=== PATIENT | female | born 1945 | race Caucasian/White ===

== ENCOUNTER → 2020-12-03 09:55 | Outpatient (BNVA) | payer MEDICARE, SELFPAY | PROVIDERS: PCP Internal Medicine; Referring Provider Internal Medicine; Visit Provider Obstetrics & Gynecology ==

== ENCOUNTER 2021-03-04 07:55 | Outpatient (REF) | payer MEDICARE, SELFPAY ==
[2021-03-04 08:40] LABS: MANUAL DIFF FLAG NO
[2021-03-04 08:47] LABS: Basophils Percent Auto 0.8 % (0-2); Eosinophils Absolute Auto 0.2 X10*3/uL (0.0-0.4); Eosinophils Percent Auto 2.9 % (0-4); Hemoglobin 12.8 g/dl (12.0-16.0); Lymphocytes Absolute Auto 1.4 X10*3/uL (1.2-4.9); Lymphocytes Percent Auto 27.5 % (20-40); Mean Corpuscular HGB Conc 32.8 g/dl (31.0-35.0); Mean Corpuscular Hemoglobin 31.2 pg (27.0-33.0); Mean Corpuscular Volume 95.1 fL (80-98); Monocytes Absolute Auto 0.5 X10*3/uL (0.1-1.2); Monocytes Percent Auto 8.8 % (2-11); Neutrophils Absolute Auto 3.1 X10*3/uL (2.0-8.3); Platelet Count 276 X10*3/uL (160-400); Red Cell Distribution Width 13.5 % (11.0-16.0); White Blood Count 5.1 X10*3/uL (4.8-10.8)
[2021-03-04 09:31] LABS: Thyroid Stimulating Hormone 1.12 uIU/mL (0.32-4.0); Vitamin D 25-OH Total 64.2 ng/mL (>30)
[2021-03-04 09:36] LABS: Alanine Aminotransferase 22 U/L (0-31); Albumin Level 4.3 g/dL (3.5-5.0); Alkaline Phosphatase 54 U/L (39-117); Anion Gap 12 (12-20); Aspartate Amino Transferase 23 U/L (5-31); Bilirubin Total 0.5 mg/dL (0.0-1.0); Blood Urea Nitrogen 15 mg/dL (9-16); Calcium 9.6 mg/dL (8.4-10.2); Carbon Dioxide 29 mmol/L (22-29); Chloride 105 mmol/L (96-108); Cholesterol 177 mg/dL; Estimated Glomerular Filt Rate > 60; Glucose Random 107 mg/dL (60-115); HDL Cholesterol 57 mg/dL; LDL Cholesterol Calculated 104 mg/dl; Potassium 4.8 mmol/L (3.3-5.1); Sodium 141 mmol/L (135-145); Total Protein 6.9 g/dL (6.5-8.0); Triglycerides 81 mg/dL
[2021-03-04 09:41] LABS: Folate 18.9 ng/mL (> or = 4.0); Vitamin B12 867 pg/mL (200-900)
== END 2021-03-04 07:56 | disposition home or self-care (01) ==
LOC: HO.LAB 07:55
PROVIDERS: PCP Internal Medicine; Visit Provider Internal Medicine
DX: E78.00 Pure hypercholesterolemia, unspecified (principal); I10 Essential (primary) hypertension
CPT/HCPCS: 36415; 80053; 80061; 82306; 82607; 82746; 84439; 84443; 85025

== ENCOUNTER 2021-03-17 10:13 | Outpatient (REF) | payer MEDICARE, SELFPAY ==
--- NOTE | ~2021-03-17 | MM_ITS ---
EXAMINATION: BONE DENSITOMETRY CLINICAL INDICATION: Menopausal and female climacteric states. COMPARISON: Previous BD dated 03/15/2019 and baseline BD dated 12/26/2003. TECHNIQUE: Using a [employer] DXA System (software version: 13.1) manufactured by [employer], dual-energy x-ray absorptiometry was performed of the lumbar spine and left hip. The images are of good technical quality. Summary results are attached. FINDINGS: AP SPINE L1-L4 (excluding L3): The data of L1-L4 has been changed to exclude the L3 vertebral body, because degenerative changes at this level may cause overestimation of lumbar spine density. Current: BMD 1.163 g/cm2, Z-score 1.3, T-score -0.1, normal, 10.4% increase from previous, 11.5% increase from baseline (<5% change is not significant). Prior: BMD 1.053 g/cm2. Baseline: BMD 1.043 g/cm2. LEFT FEMUR, NECK: Current: BMD 0.944 g/cm2, Z-score 0.9, T-score -0.7, normal. Prior: BMD 0.981 g/cm2. Baseline: BMD 0.953 g/cm2. LEFT FEMUR, TOTAL: Current: BMD 0.899 g/cm2, Z-score 0.5, T-score -0.9, normal, 0.7% increase from previous, 3.4% decrease from baseline (<5% change is not significant). Prior: BMD 0.893 g/cm2. Baseline: BMD 0.931 g/cm2. IDENTIFIED RISK FACTORS: Menopause. HISTORY OF FRACTURE: None listed. MEDICATIONS: Calcium supplements or multivitamin, vitamin D. MM/XR DEXA axial skeleton IMPRESSION: 1. DIAGNOSIS: Normal bone density based on the lowest T-score value of -0.9 in the total femur applying World Health Organization criteria. 2. 10-YEAR FRACTURE RISK PREDICTION, FRAX: Major osteoporotic fracture (clinical spine, forearm, hip or shoulder) 8.9%. Hip fracture 1.0%. 3. Treatment Recommendations: NOF guidelines recommend consideration for treatment in postmenopausal women and men age 50 and older presenting with the following: -A hip or vertebral (clinical or morphometric) fracture. -T-score less than or equal to -2.5 at the femoral neck or spine after appropriate evaluation to exclude secondary causes. -Low bone mass at the hip or spine and a 10-year fracture probability by FRAX of greater than or equal to 3% for hip fracture or greater than or equal to 20% for major osteoporotic fracture based on the [place] adapted WHO algorithm. 4. Other Recommendations: All treatment decisions require clinical judgment and consideration of individual patient factors, including patient preferences, comorbidities, previous drug use, risk factors not captured in the FRAX model (e.g. frailty, falls, vitamin D deficiency, increased bone turnover, interval significant decline in bone density) and possible under or overestimation of fracture risk by FRAX. FUTURE SCAN RECOMMENDATION: People with diagnosed cases of osteoporosis or at high risk for fracture should have regular bone mineral density tests. For patients eligible for Medicare, routine testing is allowed once every 2 years. The testing frequency can be increased to one year for patients who have rapidly progressing disease, those who are receiving or discontinuing medical therapy to restore bone mass, or have additional risk factors.
== END 2021-03-17 10:14 | disposition home or self-care (01) ==
LOC: HO.MAMMO 10:13
PROVIDERS: PCP Internal Medicine; Visit Provider Obstetrics & Gynecology
DX: Z13.820 Encounter for screening for osteoporosis (principal); Z78.0 Asymptomatic menopausal state; Z79.899 Other long term (current) drug therapy
CPT/HCPCS: 77080

== ENCOUNTER → 2021-03-31 11:20 | Outpatient (BNVA) | payer MEDICARE, SELFPAY | PROVIDERS: PCP Internal Medicine; Visit Provider Obstetrics & Gynecology | DX: M85.80 Other specified disorders of bone density and structure, unspecified site (principal) | CPT/HCPCS: Q3014 ==

== ENCOUNTER 2021-08-19 06:35 | Day surgery (SDC) | payer MEDICARE, SELFPAY ==
[2021-08-13 13:10] VITALS: BMI 25.8
[2021-08-19 06:37] VITALS: BP 170/77; PULSE 82; RESP 17; TEMP 36.3; O2SAT 99
--- NOTE | 2021-08-19 07:19 | HO.ANESPROP2 ---
HPI - Anesthesia Eval Consult details Narrative: 76 yo female patient for colonoscopy PMFSH Active Problems Active Problems: All Active Problems (Updated 08/13/21 @ 13:09 by Kaylin Bernstein RN) Breast asymmetry (Acute) Menopausal state (Acute) Annual physical exam (Acute) Osteopenia (Acute) Impaired glucose tolerance (Acute) Tubular adenoma of colon (Acute) Osteopenia (Acute) Breast cancer screening by mammogram (Acute) Hypercholesterolemia (Acute) Hypertension (Acute) Past Medical History Medical History Allergic rhinitis Arthritis COVID-19 vaccine series completed Hypercholesterolemia Hypertension Tubular adenoma of colon Family History Family History Mother Cancer Uterine cancer Family history of problems with anesthesia: No Surgical History Surgical History H/O colonoscopy History of bilateral tubal ligation History of cataract surgery History of Problems with Anesthesia: No Social History Social History Housing: House Are you a primary hearing care professional to a significant other at home: No Do you presently have visiting nurse or other home services: No Alcohol intake: current Alcohol intake frequency: a few times a month Patient Tobacco Use Status: Never used Tobacco e-Cigarette/Vaping Use: Never Used Use of substances other than those prescribed or required for medical reasons: No Have you been hit, kicked, punched, or otherwise hurt by someone within the past year? If so, by whom?: No Are you DNR?: No Advance Directives Information Provided: Yes (will bring copy DOS) Advance Directives on File: No Recently lost weight without trying: No Eating poorly because of decreased appetite: No Nutrition Risks: No Nutritional Risk Poor oral hygiene: No Current occupational status: retired Meds Allergies Allergy/AdvReac Type Severity Reaction Status Date / Time amlodipine [Norvasc] Allergy Intermediate hives (to Verified 08/13/21 12:55 the binder) Sulfa (Sulfonamide Allergy Intermediate swelling Verified 08/13/21 13:10 Antibiotics) of mouth Active Medications: Current Medications Sodium Biphosphate/Sodium Phosphate (Sodium Phosphate,Sharp-Dibasic 133 Ml Enema) 133 ml VT ONCE PRN PRN Reason: Poor Colonoscopy Prep Results Home Medications Medication Instructions Recorded Confirmed Last Taken Type aspirin 81 mg tablet,delayed 81 mg PO DAILY 09/06/20 08/13/21 08/11/21 History release multivitamin 1 tab PO DAILY 12/03/20 08/13/21 Unknown History calcium carbonate 600 mg-vitamin 1 cap PO BID cap 03/12/21 08/13/21 Unknown History D3 12.5 mcg (500 unit) capsule (Calcium 600 with Vitamin D3) cetirizine 10 mg tablet (Zyrtec) 10 mg PO DAILY PRN 03/12/21 08/13/21 Unknown History Exam Exam Date and Time: August 19, 2021 0719 Height,Weight and Vital Signs: Height 5 ft 8 in Weight 77.111 kg Last Vital Signs Temp 97.3 F 08/19/21 06:37 Pulse 82 08/19/21 06:37 Resp 17 08/19/21 06:37 BP 170/77 H 08/19/21 06:37 Pulse Ox 99 08/19/21 06:37 Airway Mallampati Class: II (Small mouth) TM Dist: >3cm Neck ROM: Full Loose/Missing/Broken Teeth: No Heart: RRR Lungs: CTAB Assessment and Plan Final Anesthetic Review Family History of Problems with Anesthesia: No History of Problems with Anesthesia: No NPO: Yes ASA Class: II Final Preanesthetic Review: No Changes in Pt Med Stat, Meds/Allgs Chart Reviewed, Consent Obtained/Reviewed and Anes Risks/Benef Reviewed Patient Risk: Low Procedure Risk: Low Assessment/Block/Sedation in SS: Assess/Block/Sedation-SS Anesthetic Plan Anesthetic Plan: MAC: Disposition: Standard PACU
[2021-08-19] MEDS: Lactated Ringers 1,000 ML 100 ML IVCONT (07:28)
[2021-08-19 08:32] VITALS: BP 108/59; PULSE 63; RESP 12; TEMP 36.1; O2SAT 98
--- NOTE | 2021-08-19 08:34 | PM.OP ---
Brief Operative Note Date of Service: 08/19/21 Pre-op diagnosis: Screening Post-op diagnosis: other (Polyp, suboptimal prep) Procedure: Colonoscopy to the cecum with hot snare polypectomy Surgeon: David Wellington Anesthesia: MAC Was an Director Of Undergraduate Admissions used for this Procedure?: No Estimated blood loss (mL): 0 Pathology: other (A. Cecal polyp) Condition: stable Disposition: PACU
[2021-08-19 08:47] VITALS: BP 107/62; PULSE 69; RESP 18; TEMP 36.1; O2SAT 98
--- NOTE | 2021-08-24 16:05 | OP_ITS ---
SURGEON: David Wellington MD INDICATIONS: The patient presents for evaluation of colorectal cancer screening and personal history of tubular adenoma of the colon. Full consent was obtained from her for this, including risks of bleeding and perforation. PREOPERATIVE DIAGNOSIS: POSTOPERATIVE DIAGNOSIS: PROCEDURE PERFORMED: ESTIMATED BLOOD LOSS: COMPLICATIONS: ANESTHESIA: Monitored anesthesia care. ASSISTANTS: SPECIMENS: PROCEDURE: Colonoscopy to the cecum with hot snare polypectomy. PREOPERATIVE DIAGNOSES: Colorectal cancer screening and personal history of tubular adenoma of the colon. POSTOPERATIVE DIAGNOSES: Colorectal cancer screening and personal history of tubular adenoma of the colon, cecal polyp, suboptimal prep, diverticulosis, and internal hemorrhoids. DESCRIPTION OF PROCEDURE: The patient was placed in the left lateral decubitus position. The digital rectal exam revealed no abnormalities. The Olympus video pediatric colonoscope was entered into the rectum and advanced easily to the cecum. In the cecum, I did identify cecal pouch with appendiceal orifice, although the prep in the cecum was somewhat limited. With copious irrigation and suction. I was able to visualize the majority of the cecum. In the cecum, there was a slightly raised approximately 10 mm polyp, which was removed with a hot snare polypectomy and recovered by suction. The polypectomy site appeared clean, without any sign of residual polyp nor bleeding. There was transillumination of light deep in the right lower quadrant. The scope was then slowly withdrawn assessing all mucosal surfaces carefully. Preparation of various parts of the colon was quite limited due to some liquid and solid stool. I did not visualize any sign of polyps, colitis, or angiodysplasia. There was a mild amount of sigmoid diverticulosis. In the rectum, scope was retroflexed visualizing internal hemorrhoids, but no other pathology. The rectal mucosa appeared normal. The scope was straightened and withdrawn from the patient. She tolerated the procedure well and was returned to the recovery area in stable condition. IMPRESSION: 1. Cecal polyp, status post hot snare polypectomy. 2. Diverticulosis. 3. Internal hemorrhoids. 4. Limited prep. PLAN: The results of the pathology will be checked. Even if the polyp is not a tubular adenoma, I would recommend a repeat colonoscopy with a 2-day preparation for better clean out within the next year or so given her previous history of relatively large adenomas. She was advised not to use any aspirin or NSAIDs for 1 more week. MD OBEY Mcdonough/CHEN / [id number]
== END 2021-08-19 09:11 | disposition home or self-care (01) ==
PROVIDERS: PCP Internal Medicine; Visit Provider Internal Medicine
PROC: 0DJD8ZZ Inspection of Lower Intestinal Tract, Via Natural or Artificial Opening Endoscopic (ICD-10-PCS; CPT 45378; principal; 2021-08-19 07:30)
DX: Z12.11 Encounter for screening for malignant neoplasm of colon (principal); Z86.010 Personal history of colon polyps; D12.0 Benign neoplasm of cecum; K57.30 Diverticulosis of large intestine without perforation or abscess without bleeding; K64.8 Other hemorrhoids; I10 Essential (primary) hypertension; E78.5 Hyperlipidemia, unspecified; Z79.82 Long term (current) use of aspirin; Z79.899 Other long term (current) drug therapy
CPT/HCPCS: 45385; 88305

== ENCOUNTER 2021-11-18 06:55 | Day surgery (SDC) | payer MEDICARE, SELFPAY ==
[2021-11-12 16:07] VITALS: BMI 25.8
--- NOTE | 2021-11-17 11:56 | HO.ANESPROP2 ---
Documented by User: Iliana Abbott NP 11/17/21 11:57 HPI - Anesthesia Eval Consult details Narrative: 76yo F for Colonoscopy s/p Colonoscopy 08/2021 with TIVA PMFSH Active Problems Active Problems: All Active Problems (Updated 11/12/21 @ 16:04 by Ayanna Almanzar, RN) Breast asymmetry (Acute) Menopausal state (Acute) Annual physical exam (Acute) Osteopenia (Acute) Impaired glucose tolerance (Acute) Tubular adenoma of colon (Acute) Osteopenia (Acute) Breast cancer screening by mammogram (Acute) Nondisplaced fracture of greater tuberosity of humerus (Acute) Hypercholesterolemia (Acute) Hypertension (Acute) Past Medical History Medical History Allergic rhinitis Arthritis COVID-19 vaccine series completed Hypercholesterolemia Hypertension Left carotid artery stenosis Tubular adenoma of colon Family History Family History Mother Cancer Uterine cancer Family history of problems with anesthesia: No Surgical History Surgical History (Updated 11/12/21 @ 16:24 by Ramila Falcon RN) H/O colonoscopy History of bilateral tubal ligation History of cataract surgery History of Problems with Anesthesia: No Social History Social History Housing: House Are you a primary home care specialist to a significant other at home: No Do you presently have visiting nurse or other home services: No Alcohol intake: current Alcohol intake frequency: holidays/special occasions only Patient Tobacco Use Status: Never used Tobacco e-Cigarette/Vaping Use: Never Used Use of substances other than those prescribed or required for medical reasons: No Are you DNR?: No Advance Directives: No Advance Directives Information Provided: Yes Advance Directives on File: No Recently lost weight without trying: No Nutrition Risks: No Nutritional Risk service: No Current occupational status: retired Cognitive needs: No Hearing needs: No Vision needs: Yes Meds Allergies Allergy/AdvReac Type Severity Reaction Status Date / Time amlodipine [Norvasc] Allergy Intermediate hives (to Verified 11/12/21 16:24 the binder) Sulfa (Sulfonamide Allergy Intermediate swelling Verified 11/12/21 16:24 Antibiotics) of mouth Home Medications Medication Instructions Recorded Confirmed Last Taken Type aspirin 81 mg tablet,delayed 81 mg PO DAILY 09/06/20 11/12/21 08/24/21 History release multivitamin 1 tab PO DAILY 12/03/20 11/12/21 Unknown History calcium carbonate 600 mg-vitamin 1 cap PO BID 03/12/21 11/12/21 Unknown History D3 12.5 mcg (500 unit) capsule (Calcium 600 with Vitamin D3) cetirizine 10 mg tablet (Zyrtec) 10 mg PO DAILY PRN Allergy Symptoms 03/12/21 11/12/21 Unknown History glucosamine sulf dipot 1 cap PO DAILY 11/12/21 11/12/21 Unknown History chlr,msm,chond 550 mg-C 30 mg-malik 1 mg capsule (Glucosamine Chondroitin) Exam Exam Date and Time: November 17, 2021 1156 Height,Weight and Vital Signs: Height 5 ft 8 in Weight 77.111 kg Assessment and Plan Assessment Anesthesia Assessment: Chart Reviewed Final Anesthetic Review Family History of Problems with Anesthesia: No History of Problems with Anesthesia: No Documented by User: Kristin Renteria MD 11/18/21 08:00 [facility] Past Medical History Medical History Allergic rhinitis Arthritis COVID-19 vaccine series completed Hypercholesterolemia Hypertension Left carotid artery stenosis Tubular adenoma of colon Family History Family History Mother Cancer Uterine cancer Surgical History Surgical History (Updated 11/12/21 @ 16:24 by Ramila Falcon RN) H/O colonoscopy History of bilateral tubal ligation History of cataract surgery Social History Social History Housing: House Are you a primary home care specialist to a significant other at home: No Do you presently have visiting nurse or other home services: No Alcohol intake: current Alcohol intake frequency: holidays/special occasions only Patient Tobacco Use Status: Never used Tobacco e-Cigarette/Vaping Use: Never Used Use of substances other than those prescribed or required for medical reasons: No Are you DNR?: No Advance Directives: No Advance Directives Information Provided: Yes Advance Directives on File: No Recently lost weight without trying: No Nutrition Risks: No Nutritional Risk service: No Current occupational status: retired Cognitive needs: No Hearing needs: No Vision needs: Yes Meds Allergies Allergy/AdvReac Type Severity Reaction Status Date / Time amlodipine [Norvasc] Allergy Intermediate hives (to Verified 11/12/21 16:24 the binder) Sulfa (Sulfonamide Allergy Intermediate swelling Verified 11/12/21 16:24 Antibiotics) of mouth Home Medications Medication Instructions Recorded Confirmed Last Taken Type aspirin 81 mg tablet,delayed 81 mg PO DAILY 09/06/20 11/12/21 08/24/21 History release multivitamin 1 tab PO DAILY 12/03/20 11/12/21 Unknown History calcium carbonate 600 mg-vitamin 1 cap PO BID 03/12/21 11/12/21 Unknown History D3 12.5 mcg (500 unit) capsule (Calcium 600 with Vitamin D3) cetirizine 10 mg tablet (Zyrtec) 10 mg PO DAILY PRN Allergy Symptoms 03/12/21 11/12/21 Unknown History glucosamine sulf dipot 1 cap PO DAILY 11/12/21 11/12/21 Unknown History chlr,msm,chond 550 mg-C 30 mg-malik 1 mg capsule (Glucosamine Chondroitin) Exam Airway Mallampati Class: II TM Dist: >3cm Neck ROM: Full Assessment and Plan Final Anesthetic Review NPO: Yes ASA Class: II Final Preanesthetic Review: No Changes in Pt Med Stat, Meds/Allgs Chart Reviewed, Consent Obtained/Reviewed and Anes Risks/Benef Reviewed Patient Risk: Low Procedure Risk: Low Anesthetic Plan Anesthetic Plan: MAC: Disposition: Standard PACU
[2021-11-18 07:20] VITALS: BP 174/62; PULSE 99; RESP 17; TEMP 36.1; O2SAT 97
[2021-11-18] MEDS: Lactated Ringers 1,000 ML 100 ML IVCONT (07:38)
[2021-11-18 09:35] VITALS: BP 108/38; PULSE 78; RESP 16; TEMP 36.1; O2SAT 98
--- NOTE | 2021-11-18 09:36 | PM.OP ---
Brief Operative Note Date of Service: 11/18/21 Pre-op diagnosis: Screening Post-op diagnosis: other (Diverticulosis) Procedure: Colonoscopy to the cecum Surgeon: David Wellington Anesthesia: MAC Was an Chisel Mortiser Operator used for this Procedure?: No Estimated blood loss (mL): 0 Pathology: none sent Condition: stable Disposition: PACU
[2021-11-18 09:50] VITALS: BP 134/75; PULSE 73; RESP 18; TEMP 36.1; O2SAT 100
--- NOTE | 2021-11-19 10:49 | OP_ITS ---
SURGEON: David Wellington MD INDICATIONS: The patient presents for evaluation of colorectal cancer screening and personal history of tubular adenoma of the colon. Full consent has been obtained from her for this, including risks of bleeding and perforation. PREOPERATIVE DIAGNOSIS: POSTOPERATIVE DIAGNOSIS: PROCEDURE PERFORMED: Colonoscopy to the cecum. ESTIMATED BLOOD LOSS: COMPLICATIONS: ANESTHESIA: Monitored anesthesia care. ASSISTANTS: SPECIMENS: PREOPERATIVE DIAGNOSES: Colorectal cancer screening and personal history of tubular adenoma of the colon. POSTOPERATIVE DIAGNOSES: Colorectal cancer screening and personal history of tubular adenoma of the colon, diverticulosis and internal hemorrhoids. DESCRIPTION OF PROCEDURE: The patient was placed in the left lateral decubitus position. The digital rectal exam revealed no abnormalities. The Olympus video pediatric colonoscope was entered into the rectum and advanced to the cecum with the assistance of abdominal wall pressure. Once in the cecum, I did identify normal-appearing cecal pouch with appendiceal orifice and a normal-appearing ileocecal valve. The entire cecum and ileocecal valve appeared normal. The scope was slowly withdrawn assessing all mucosal surfaces carefully. Preparation was excellent. I did not visualize any sign of polyps, colitis, or angiodysplasia. There was a mild amount of sigmoid diverticulosis. In the rectum, scope was retroflexed visualizing internal hemorrhoids, but no other pathology. The rectal mucosa appeared normal. The scope was straightened and withdrawn from the patient. She tolerated procedure well and was returned to the recovery area in stable condition. IMPRESSION: 1. Diverticulosis. 2. Internal hemorrhoids. PLAN: Given today's negative exam and her age, I do not think she will need any further screening colonoscopies. She will otherwise see me on a p.r.n. basis. MD OBEY Mcdonough/CHEN / [phone]
== END 2021-11-18 10:14 | disposition home or self-care (01) ==
PROVIDERS: PCP Internal Medicine; Visit Provider Internal Medicine
PROC: 0DJD8ZZ Inspection of Lower Intestinal Tract, Via Natural or Artificial Opening Endoscopic (ICD-10-PCS; CPT 45378; principal; 2021-11-18 08:20)
DX: Z12.11 Encounter for screening for malignant neoplasm of colon (principal); Z86.010 Personal history of colon polyps; K57.30 Diverticulosis of large intestine without perforation or abscess without bleeding; K64.8 Other hemorrhoids; I65.22 Occlusion and stenosis of left carotid artery; I10 Essential (primary) hypertension; E78.5 Hyperlipidemia, unspecified; Z79.82 Long term (current) use of aspirin; Z79.899 Other long term (current) drug therapy; Z88.2 Allergy status to sulfonamides
CPT/HCPCS: G0105

== ENCOUNTER 2022-05-25 07:19 | Outpatient (REF) | payer MEDICARE, SELFPAY ==
[2022-05-25 07:35] LABS: MANUAL DIFF FLAG NO
[2022-05-25 08:13] LABS: Basophils Absolute Auto 0.1 X10*3/uL (0.0-0.2); Basophils Percent Auto 0.9 % (0-2); Eosinophils Absolute Auto 0.3 X10*3/uL (0.0-0.4); Eosinophils Percent Auto 4.9 % (0-4); Hemoglobin 13.3 g/dl (12.0-16.0); Imm Gran Abs Auto 0.03 X10*3/uL (0.00-0.03); Imm Gran Pct Auto 0.5 % (0.0-0.4); Lymphocytes Absolute Auto 1.6 X10*3/uL (1.2-4.9); Lymphocytes Percent Auto 29.1 % (20-40); Mean Corpuscular HGB Conc 32.4 g/dl (31.0-35.0); Mean Corpuscular Hemoglobin 30.4 pg (27.0-33.0); Mean Corpuscular Volume 93.8 fL (80.0-98.0); Mean Platelet Volume 9.7 fL (9.4-12.3); Monocytes Absolute Auto 0.6 X10*3/uL (0.1-1.2); Monocytes Percent Auto 10.3 % (2-11); Neutrophils Percent Auto 54.3 % (45-73); Platelet Count 284 X10*3/uL (160-400); Red Blood Count 4.37 X10*6/uL (4.20-5.50); Red Cell Distribution Width 13.5 % (11.0-16.0); White Blood Count 5.6 X10*3/uL (4.8-10.8)
[2022-05-25 08:22] LABS: Estimated Average Glucose 111 mg/dL; Hemoglobin A1c % 5.5 %
[2022-05-25 09:10] LABS: Alanine Aminotransferase 31 U/L (0-31); Albumin Level 4.3 g/dL (3.5-5.0); Alkaline Phosphatase 66 U/L (39-117); Anion Gap 12 (12-20); Aspartate Amino Transferase 24 U/L (5-31); Bilirubin Total 0.5 mg/dL (0.0-1.0); Blood Urea Nitrogen 15 mg/dL (9-16); Calcium 9.7 mg/dL (8.4-10.2); Carbon Dioxide 28 mmol/L (22-29); Chloride 105 mmol/L (96-108); Cholesterol 194 mg/dL; Estimated Glomerular Filt Rate > 60; Free T4 (Free Thyroxine) 0.96 ng/dL (0.71-1.85); Glucose Random 103 mg/dL (60-115); HDL Cholesterol 51 mg/dL; LDL Cholesterol Calculated 122 mg/dl; Potassium 4.8 mmol/L (3.3-5.1); Sodium 140 mmol/L (135-145); Triglycerides 108 mg/dL; Vitamin D 25-OH Total 59.8 ng/mL (>30)
[2022-05-25 09:17] LABS: Folate 19.9 ng/mL (> or = 4.0); Vitamin B12 896 pg/mL (200-900)
== END 2022-05-25 07:20 | disposition home or self-care (01) ==
LOC: HO.LAB 07:19
PROVIDERS: PCP Internal Medicine; Visit Provider Internal Medicine
DX: E78.00 Pure hypercholesterolemia, unspecified (principal); R73.02 Impaired glucose tolerance (oral)
CPT/HCPCS: 36415; 80053; 80061; 82306; 82607; 82746; 83036; 84439; 84443; 85025

== ENCOUNTER 2023-01-06 09:01 | Outpatient (AMB) | payer MEDICARE, SELFPAY ==
--- NOTE | 2023-01-06 09:03 | MHC.OFFVIS ---
Intake Vital Signs 01/06/23 09:05 Height 5 ft 8 in Weight 171 lb BMI 26.0 BP 140/70 H Intake Visit Reasons: Annual/DO NOT RS Intake Note: no concerns Medical Voucher Clerk Required: No Information Interpreted: non-clinical & clinical Photography Assistant: Photography Assistant Present (Felecia Quintero STELLA) Accompanied by: Self / Same As Patient Allergies amlodipine [Norvasc] Allergy (Intermediate, Verified 01/06/23 09:06) hives (to the binder) Sulfa (Sulfonamide Antibiotics) Allergy (Intermediate, Verified 01/06/23 09:06) swelling of mouth Post menopausal: Yes HPI HPI Comments History of Present Illness Details Presenting for annual exam. No complaints. Last Pap/HPV was many years ago no history of abnormal Pap smear Last Mammogram was BI-RADS 2 at [facility] on 05/04 Last Colonoscopy was done in 12/02 , the recommendation was not to repeat Last DEXA scan was in 04/02 [facility] Medical History Allergic rhinitis Arthritis Breast cancer screening by mammogram COVID-19 vaccine series completed COVID-19 virus infection Hypercholesterolemia Hypertension Left carotid artery stenosis Osteopenia Osteopenia Tubular adenoma of colon Tubular adenoma of colon Surgical History H/O colonoscopy History of bilateral tubal ligation History of cataract surgery Family History Mother Cancer Uterine cancer Social History Household Members: None Housing: House Are you a primary furnace caretaker to a significant other at home: No Do you presently have visiting nurse or other home services: No Alcohol intake: current Alcohol intake frequency: holidays/special occasions only Patient Tobacco Use Status: Never used Tobacco e-Cigarette/Vaping Use: Never Used service: No Current occupational status: retired Sexually active: No Sexual orientation: Straight/Heterosexual Gender identity: Female Cognitive needs: No Hearing needs: No Vision needs: Yes Female Reproductive History Menstrual Age of Menarche: 15 Menopause type: natural Total pregnancies: 2 Full term: 2 Number of Living Children: 2 Date of Mammogram: 04/25/22 Date of last Bone Density Screenin04/29/21 Review of Systems Const All systems reviewed & are unremarkable except as noted in HPI and below Card Reports as per HPI Resp Reports as per HPI GI Reports as per HPI and Reports no additional complaints Reports as per HPI Physical Exam Vital Signs: Last Vital Signs BP 140/70 H 01/06/23 09:05 BMI result Body Mass Index 26.0 Const General: cooperative, healthy appearing and comfortable Chest Chest palpation & inspection: normal inspection of the chest and normal palpation of entire chest wall Breast/axilla inspection: normal inspection of the breasts and normal inspection of the axillae Breast/axilla palpation: normal palpation of the breasts, normal palpation of the axillae and no axillary lymphadenopathy Resp Effort & Inspection: normal respiratory effort Auscultation: clear to auscultation bilaterally Percussion: percussion normal Cardio Palpation: normal PMI Rate: regular rate Rhythm: regular rhythm Heart sounds: no murmurs and no rubs Peripheral pulses: Peripheral pulses 2+ throughout GI Inspection: Yes normal to inspection Palpation (GI): Soft to palpation, nontender, no guarding, not rigid and No hepatosplenomegaly present Percussion: Yes normal to percussion Auscultation: normal bowel sounds Rectal Exam - Female: deferred General: Yes bladder normal to palpation External Female Exam: No lesion Speculum Exam - Vagina: normal appearance of the vagina, normal palpation, normal vaginal discharge and not erythematous Speculum Exam - Cervix: normal appearance of the cervix and normal palpation Bimanual exam- vagina & uterus: normal bimanual exam, normal palpation, uterine size normal, bladder normal to palpation, consistency normal and normal palpation Bimanual Exam- Adnexa, other: normal adnexae, no masses and no tenderness Assessment & Plan Assessment & Plan (1) Well woman exam: Code(s): Z01.419 - Encounter for gynecological examination (general) (routine) without abnormal findings Plan: Co testing not indicated since the patient 's age is above 65 with no history of abnormal Pap smears last 25 years. Counseled the patient about the recommended dietary allowance of 1200 mg of Calcium & 800 IU of vitamin D. Instructions given the patient to schedule her next screening Mammogram in 05/05, the patient is up-to-date with her screening colonoscopy . Will order DEXA scan for 04/04 . The patient was instructed to perform monthly self-breast exams and to schedule a 2 week DEXA scan follow-up appointment and an annual exam in a year; all questions answered and the patient verbalized understanding. Orders: Orders XR DEXA axial skeleton 3 Months N95.1 - Menopausal and female climacteric states Coding Level of Care Code Est Pt Prev Care >65y(96384) Diagnoses Well woman exam Z01.419
[2023-01-06 09:05] VITALS: BP 140/70; BMI 26.0
== END 2023-01-06 09:25 | disposition home or self-care (01) ==
LOC: HO.HWS 09:01
PROVIDERS: PCP Internal Medicine; Visit Provider Obstetrics & Gynecology
DX: Z01.419 Encounter for gynecological examination (general) (routine) without abnormal findings (principal)
CPT/HCPCS: 99397

== ENCOUNTER → 2023-01-06 09:01 | Outpatient (BNVA) | payer MEDICARE, SELFPAY | PROVIDERS: PCP Internal Medicine; Visit Provider Obstetrics & Gynecology ==

== ENCOUNTER 2023-03-22 10:04 | Outpatient (REF) | payer MEDICARE, SELFPAY | END 2023-03-22 10:05 | disposition home or self-care (01) | LOC: HO.MAMMO 10:04 | PROVIDERS: PCP Internal Medicine; Visit Provider Obstetrics & Gynecology | DX: Z13.820 Encounter for screening for osteoporosis (principal); Z78.0 Asymptomatic menopausal state | CPT/HCPCS: 77080 ==

== ENCOUNTER 2023-04-26 09:43 | Outpatient (AMB) | payer MEDICARE, SELFPAY ==
--- NOTE | 2023-04-26 09:44 | MHC.OFFVIS ---
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 T score @ spine and femoral Neck respectively were=-0.4 /-0.8, bone mineral density at the spine femur level was +7.4 %/-2.4% from baseline and 10 year FRAX risk was not computer [facility] Medical History (Updated 04/26/23 @ 09:49 by Min Guerra MD) Osteopenia COVID-19 virus infection Left carotid artery stenosis Arthritis COVID-19 vaccine series completed Breast cancer screening by mammogram Tubular adenoma of colon Osteopenia Tubular adenoma of colon Allergic rhinitis Hypercholesterolemia Hypertension Surgical History H/O colonoscopy History of cataract surgery History of bilateral tubal ligation Family History Mother Cancer Uterine cancer Social History Household Members: None Housing: House Are you a primary patient centered care specialist to a significant other at home: No Do you presently have visiting nurse or other home services: No Alcohol intake: current Alcohol intake frequency: holidays/special occasions only Patient Tobacco Use Status: Never used Tobacco e-Cigarette/Vaping Use: Never Used service: No Current occupational status: retired Sexual orientation: Straight/Heterosexual Gender identity: Female Cognitive needs: No Hearing needs: No Vision needs: Yes Female Reproductive History Menstrual Age of Menarche: 15 Review of Systems Const All systems reviewed & are unremarkable except as noted in HPI and below Reports as per HPI and Reports no additional complaints GI Reports no additional complaints Reports no additional complaints Assessment & Plan Assessment & Plan (1) Osteopenia: Code(s): M85.80 - Other specified disorders of bone density and structure, unspecified site Plan: Discussed with the patient the DEXA results and BMD changes relative to baseline, showed no evidence of osteoporosis. Discussed with the patient all the options for osteoporosis prevention including lifestyle modifications including Ca+D supplements 1200 mg po qd/800 MIU, Weight bearing exercises and proteine supplements. The patient verbalized understanding and agreed plan will repeat DEXA in 2 years. Coding Level of Care Code Est Pt Level 3 (86868) Diagnoses Osteopenia M85.80
[2023-04-26 09:47] VITALS: BP 130/76; BMI 25.8
== END 2023-04-26 09:54 | disposition home or self-care (01) ==
LOC: HO.HWS 09:43
PROVIDERS: PCP Internal Medicine; Visit Provider Obstetrics & Gynecology
DX: M85.80 Other specified disorders of bone density and structure, unspecified site (principal)
CPT/HCPCS: 99213

== ENCOUNTER → 2023-04-26 09:43 | Outpatient (BNVA) | payer MEDICARE, SELFPAY | PROVIDERS: PCP Internal Medicine; Visit Provider Obstetrics & Gynecology | DX: M85.80 Other specified disorders of bone density and structure, unspecified site (principal) | CPT/HCPCS: 99212 ==

== ENCOUNTER 2023-07-20 10:10 | Outpatient (AMB) | payer MEDICARE, SELFPAY ==
[2023-07-20 10:22] VITALS: BP 170/82; PULSE 67; O2SAT 99; BMI 25.6
--- NOTE | 2023-07-20 10:22 | A.OFFPC_ITS ---
Vital Signs 07/20/23 10:22 07/20/23 10:30 Height 5 ft 8 in Weight 168 lb 6 oz BMI 25.6 BP 170/82 H 154/80 H Blood Pressure Location Lt brachial Lt brachial Position Sitting Sitting Pulse 67 Pulse Source Pulse Oximeter Pulse Oximetry (%) 99 Oxygen Delivery Method Room Air Intake Visit Reasons: Med Review Intake Note: Dr. Newman's patient is here for a medication review. Log Data Technician Required: No Accompanied by: Self / Same As Patient Allergies amlodipine [Norvasc] Allergy (Intermediate, Verified 07/20/23 10:39) hives (to the binder) Sulfa (Sulfonamide Antibiotics) Allergy (Intermediate, Verified 07/20/23 10:39) swelling of mouth Medication List - Last Reconciled 07/20/23 by Roberto Gamez PA-C aspirin 81 mg PO DAILY atorvastatin 10 mg PO DAILY calcium carbonate-vitamin D3 600 mg-12.5 mcg (500 unit) (Calcium 600 with Vitamin D3) 1 cap PO BID cetirizine (Zyrtec) 10 mg PO DAILY PRN glucos sul 2KGp-vja-jvblh-C-Mn 550-30-1 mg (Glucosamine Chondroitin) 1 cap PO DAILY lisinopril 30 mg PO DAILY multivitamin 1 tab PO DAILY Tobacco use date assessed: 07/20/23 Fall risk assessment: No Falls in past year Last assessed Fall Risk: 07/20/23 Dental Screening Dental Screen Date: 07/20/23 Did you have a dental visit in the last 12 months?: Yes Did you have a dental problem in the last 6 months where you did not have access to dental care?: No Was dental information given to patient?: Patient has dentist HPI Med Review HPI Details This is a 78-year-old female here today for follow-up visit. This is the 1st time I am meeting this 78-year-old female with a past medical history significant for hypertension, hyperlipidemia, impaired glucose tolerance. Her insurance changed and now needs new 90 day script for her cholesterol and blood pressure medication to [facility] .. Hypertension: Patient's blood pressure elevated today in office. She reports she does take her blood pressure at home and reports 110s to 130 systolic. She is asymptomatic without any headache, chest pain or dizziness. [facility] Medical History (Updated 07/20/23 @ 10:42 by Roberto Gamez PA-C) Osteopenia COVID-19 virus infection Left carotid artery stenosis Arthritis COVID-19 vaccine series completed Breast cancer screening by mammogram Tubular adenoma of colon Osteopenia Tubular adenoma of colon Allergic rhinitis Hypercholesterolemia Hypertension Surgical History H/O colonoscopy History of cataract surgery History of bilateral tubal ligation Family History Mother Cancer Uterine cancer Social History Household Members: None Housing: House Are you a primary family day care provider to a significant other at home: No Do you presently have visiting nurse or other home services: No Alcohol intake: current Alcohol intake frequency: holidays/special occasions only Patient Tobacco Use Status: Never used Tobacco e-Cigarette/Vaping Use: Never Used service: No Current occupational status: retired Sexual orientation: Straight/Heterosexual Gender identity: Female Cognitive needs: No Hearing needs: No Vision needs: Yes Female Reproductive History Menstrual Age of Menarche: 15 Questionnaire PHQ-9 Over the last 2 weeks, how often have you been bothered by any of the following problems? 1. Little interest or pleasure in doing things: not at all 2. Feeling down, depressed, or hopeless: not at all 3. Trouble falling or staying asleep, or sleeping too much: not at all 4. Feeling tired or having little energy: not at all 5. Poor appetite or overeating: not at all 6. Feeling bad about yourself - or that you are a failure or have let yourself or your family down: not at all 7. Trouble concentrating on things, such as reading the newspaper or watching television: not at all 8. Moving or speaking so slowly that other people could have noticed. Or the opposite - being so fidgety or restless that you have been moving around a lot more than usual: not at all 9. Thoughts that you would be better off or of hurting yourself in some way: not at all Total score: 0 Depression Screening Interpretation: Negative Depression Screening Done: Yes 21629 - PHQ-9 Billing: Yes Source: Developed by Drs. David Chaudhari, Lindy B.W. Byron Pulido and colleagues, with an educational sophia from [employer]. Thrive Questionnaire Date Thrive assessed: 07/20/23 I am a: Patient What is your living situation today?: I have a steady place to live Within the past 12 months, did the food you bought not last and you didn't have the money to get more?: Never true Within the past 12 months, did you worry whether your food would run out before you got money to buy more?: Never true Do you have trouble paying for medicines?: No Do you have trouble getting transportation to medical appointments?: No Do you have trouble paying your heating and electricity bill?: No Do you have trouble taking care of your child, family member or friend?: No Do you have trouble with day-to-day activities such as bathing, preparing meals, shopping, managing finances, etc.?: No Are you currently unemployed and looking for a job?: No Are you interested in more education?: No Please select the resources that you would like help with: None Currently or been in a relationship where the following occur: no concerns reported THRIVE Score: 0 AUDIT C Alcohol Use Questionnaire (AUDIT-C) 1. How often do you have a drink containing alcohol?: Never 3. How often do you have six or more drinks on one occasion?: Never Total Score: 0 REG-7 AMB Questionnaire REG-7 Date REG - 7 assessed: 07/20/23 Feeling nervous, anxious, or on edge: 0 = Not at all Not being able to stop or control worryin = Not at all Worrying too much about different things: 0 = Not at all Trouble relaxin = Not at all Being so restless that it is hard to sit still: 0 = Not at all Becoming easily annoyed or irritable: 0 = Not at all Feeling afraid as if something awful might happen: 0 = Not at all Total REG-7 score (0-4 normal; 5-9 mild; 10-14 moderate; 15-21 severe): 0 Source: Developed by Drs. David Chaudhari, Byron Nelson and colleagues, with an educational sophia from [employer]. REG-7 Assessment Billing REG-7 Assessment Tool: REG-7 Assessment 30862 Review of Systems Const Denies headache(s) Eyes Denies loss of vision ENT Denies vertigo, Denies dizziness, Denies headache(s) and Denies sore throat Card Denies chest pain, Denies leg edema and Denies lightheadedness Resp Denies cough, Denies hemoptysis and Denies wheezing GI Denies abdominal pain, Denies melena, Denies constipation, Denies diarrhea and Denies vomiting Denies urinary frequency, Denies dysuria and Denies urinary urgency Musc Denies arthralgias, Denies joint swelling, Denies numbness and Denies tingling Neuro Denies Abnormal speech present, Denies behavioral changes, Denies vertigo, Denies dizziness, Denies headache(s), Denies loss of vision, Denies memory loss, Denies numbness and Denies tingling Psych Denies anxiety, Denies behavioral changes, Denies depression, Denies memory loss and Denies panic attacks Garrison/Lymph Denies easy bleeding and Denies easy bruising Aller/Immun Denies wheezing Physical exam (Primary Care) Vital Signs: Last Vital Signs Pulse 67 07/20/23 10:22 BP 154/80 H 07/20/23 10:30 Pulse Ox 99 07/20/23 10:22 Oxygen Delivery Method Room Air 07/20/23 10:22 BMI result Body Mass Index 25.6 Tobacco/Smoking Status: Tobacco use Status Tobacco use date assessed 07/20/23 07/20/23 10:30 Patient Tobacco Use Status Never used Tobacco 07/20/23 10:24 e-Cigarette/Vaping Use Never Used 07/20/23 10:24 PHQ-9: PHQ-9 Score PHQ-9: Total score 0 07/20/23 10:30 Depression Screening Interpretation: Negative Thrive Assessment: Date of Thrive Assessment Date Thrive assessed 07/20/23 07/20/23 10:30 Currently or been in a relationship where the following occur: no concerns reported Const General: healthy appearing, no acute distress, alert and awake Nutritional Appearance: well nourished Orientation/consciousness: oriented to person, oriented to place and oriented to time HENMT Ears: TM's normal bilaterally General nose exam: Normal nasal mucous membranes and turbinates present Eyes Conjunctivae: conjunctivae normal Sclerae: sclerae normal Pupils: Equal, round and reactive pupils present Neck Neck: Yes no lymphadenopathy and Yes no JVD Thyroid: Thyroid normal Carotids: no bruits Resp Effort & Inspection: normal respiratory effort and not tachypneic Auscultation: no crackles, no rales, no rhonchi and no wheezes Cardio Rate: regular rate Rhythm: regular rhythm Heart sounds: no murmurs and normal S1 and S2 GI Palpation (GI): Soft to palpation, nontender, no hepatomegaly and no splenomegaly Auscultation: normal bowel sounds Skin General skin exam: no rashes or lesions noted and dry skin Neuro General: oriented to person, oriented to place and oriented to time Cranial nerves: Yes Equal, round and reactive pupils present Speech: No Abnormal speech present Gait exam (Neuro): Normal gait present Motor exam (neuro): no tremor noted Extrem Right upper extremity: full ROM Left upper extremity: full ROM Right lower extremity: full ROM; no edema Left lower extremity: full ROM; no edema Psych Mental Status: mental status grossly normal Speech and movement: Normal speech and movement present Affect: normal affect Attitude: cooperative Thought process: Normal thought process present Assessment and Plan Assessment & Plan (1) Hypertension: Code(s): I10 - Essential (primary) hypertension Qualifiers: Hypertension type: primary hypertension Qualified Code(s): I10 - Essential (primary) hypertension Plan: Blood pressure today in office elevated. She does monitor blood pressure closely at home and reports normal blood pressure readings 110-130 systolic. Continue with blood pressure medication. Decrease salt intake and exercise (2) Hypercholesterolemia: Code(s): E78.00 - Pure hypercholesterolemia, unspecified Plan: Patient continues on statin therapy. Will like to have her cholesterol rechecked and will call her PCP for lab order. (3) Impaired glucose tolerance: Code(s): R73.02 - Impaired glucose tolerance (oral) Plan: Decrease the amount of carbohydrate intake, pasta, bread, rice and potatoes are all sugar and that is aside from all the sweet stuff, remember that fruits are good but they are Sweet also. Medications: Refilled lisinopril 30 mg PO DAILY 90 tabs 1RF I10 - Essential (primary) hypertension atorvastatin 10 mg PO DAILY 90 tabs 1RF Coding Level of Care Code Est Pt Level 3 (26378) Diagnoses Primary hypertension I10 Hypertension type: primary hypertension Hypercholesterolemia E78.00 Impaired glucose tolerance R73.02 Additional Codes REG-7 Assessment Billing - REG-7 Assessment Tool: REG-7 Assessment [id number] ([id number])
[2023-07-20 10:30] VITALS: BP 154/80
== END 2023-07-20 10:50 | disposition home or self-care (01) ==
PROVIDERS: PCP Internal Medicine; Visit Provider Physician Assistant
DX: I10 Essential (primary) hypertension (principal); E78.00 Pure hypercholesterolemia, unspecified; R73.02 Impaired glucose tolerance (oral)
CPT/HCPCS: 99213

== ENCOUNTER 2023-10-18 15:55 | Outpatient (AMB) | payer MEDICARE, SELFPAY ==
[2023-10-18 15:57] VITALS: BP 150/86; PULSE 70; O2SAT 98; BMI 25.7
--- NOTE | 2023-10-18 15:57 | A.OFFPC_ITS ---
Vital Signs 10/18/23 15:57 Height 5 ft 8 in Weight 169 lb BMI 25.7 BP 150/86 H Blood Pressure Location Lt brachial Position Sitting Pulse 70 Pulse Source Pulse Oximeter Pulse Oximetry (%) 98 Oxygen Delivery Method Room Air Intake Visit Reasons: PE Payment Manager Required: No Net Developer With [facility]: Not Required per policy Accompanied by: Self / Same As Patient Allergies amlodipine [Norvasc] Allergy (Intermediate, Verified 10/18/23 15:58) hives (to the binder) Sulfa (Sulfonamide Antibiotics) Allergy (Intermediate, Verified 10/18/23 15:58) swelling of mouth Medication List - Last Reconciled 10/18/23 by Raman Newman MD aspirin 81 mg PO DAILY atorvastatin 10 mg PO DAILY calcium carbonate-vitamin D3 600 mg-12.5 mcg (500 unit) (Calcium 600 with Vitamin D3) 1 cap PO BID cetirizine (Zyrtec) 10 mg PO DAILY PRN glucos sul 7KGs-[id number]-C-Mn 550-30-1 mg (Glucosamine Chondroitin) 1 cap PO DAILY lisinopril 30 mg PO DAILY multivitamin 1 tab PO DAILY Tobacco use date assessed: 07/20/23 Fall risk assessment: No Falls in past year Last assessed Fall Risk: 10/18/23 Dental Screening Dental Screen Date: 07/20/23 HPI PE HPI Details 78-year-old female with a history of hyp ertension hypercholesterolemia history of nondisplaced fracture of the humerus impaired glucose tolerance coming in for physical exam last seen August 2022 patient's mammogram uptodatecolonoscopy done already and bone density is done. Patient did see the physician production assistant in July 2023 vague abdominal pain moving , , no n no v , no diarrhea, no constipation PFSH Medical History (Updated 10/18/23 @ 16:29 by Raman Newman MD) Breast asymmetry Osteopenia COVID-19 virus infection Left carotid artery stenosis Arthritis COVID-19 vaccine series completed Breast cancer screening by mammogram Tubular adenoma of colon Osteopenia Tubular adenoma of colon Allergic rhinitis Hypercholesterolemia Hypertension Surgical History H/O colonoscopy History of cataract surgery History of bilateral tubal ligation Family History Mother Cancer Uterine cancer Social History (Updated 10/18/23 @ 16:31 by Raman Newman MD) Household Members: None Housing: House Are you a primary managed care nurse to a significant other at home: No Do you presently have visiting nurse or other home services: No Alcohol intake: former Comment: last one 2022 Patient Tobacco Use Status: Never used Tobacco e-Cigarette/Vaping Use: Never Used service: No Current occupational status: retired Sexual orientation: Straight/Heterosexual Gender identity: Female Cognitive needs: No Hearing needs: No Vision needs: Yes Female Reproductive History Menstrual Age of Menarche: 15 Questionnaire Thrive Questionnaire Date Thrive assessed: 07/20/23 REG-7 AMB Questionnaire REG-7 Date REG - 7 assessed: 07/20/23 Source: Developed by Drs. David Chaudhari, Lindy Pulido, Byron Lomas and colleagues, with an educational sophia from [email or web address]. Review of Systems Const Denies poor appetite and Denies weakness Eyes Denies no additional complaints ENT Reports Normal hearing present, Denies dizziness, Denies nasal congestion, Denies tinnitus and Denies sore throat Card Denies chest pain, Denies syncope, Denies rapid heart rate and Denies dyspnea Resp Denies cough and Denies dyspnea GI Denies change in stool character, Reports constipation, Denies diarrhea, Denies nausea and Denies vomiting Denies urinary frequency, Denies difficulty voiding and Denies dysuria Neuro Reports Normal hearing present, Denies confusion, Denies dizziness, Denies syncope and Denies weakness Psych Denies confusion Physical exam (Primary Care) Vital Signs: Last Vital Signs Pulse 70 10/18/23 15:57 BP 150/86 H 10/18/23 15:57 Pulse Ox 98 10/18/23 15:57 Oxygen Delivery Method Room Air 10/18/23 15:57 BMI result Body Mass Index 25.7 Tobacco/Smoking Status: Tobacco use Status Tobacco use date assessed 07/20/23 10/18/23 15:58 Patient Tobacco Use Status Never used Tobacco 10/18/23 15:58 e-Cigarette/Vaping Use Never Used 10/18/23 15:58 Thrive Assessment: Date of Thrive Assessment Date Thrive assessed 07/20/23 10/18/23 15:58 Const General: alert and awake; No confusion Orientation/consciousness: No confusion HENMT Head: Yes normocephalic Ears: external ears normal and TM's normal bilaterally Face and sinus: Yes normal facial exam Mouth: moist mucous membranes Throat: Yes tonsils normal Eyes Conjunctivae: conjunctivae normal Pupils: Equal, round and reactive pupils present and Pupil accommodation reflex normal Direct Ophthalmoscopy: normal light reflex Neck Neck: No lymphadenopathy Thyroid: Thyroid normal Chest Chest palpation & inspection: normal inspection of the chest Resp Effort & Inspection: normal respiratory effort and no audible wheezes Auscultation: clear to auscultation bilaterally, no crackles, no wheezes and lung sounds not diminished Cardio Rate: regular rate Rhythm: regular rhythm Peripheral pulses: radial pulses present and dorsalis pedis present GI Palpation (GI): no masses Auscultation: normal bowel sounds and normoactive bowel sounds Rectal Exam - Female: deferred Skin General skin exam: no rashes or lesions noted Rashes: no rashes Neuro General: deep tendon reflexes 2+ bilaterally and No confusion Cranial nerves: Yes Equal, round and reactive pupils present, Yes Midline tongue present, Yes Normal hearing present and Yes Ability to bilaterally elevate shoulders present Cognition (Neuro): normal cognition Gait exam (Neuro): Normal gait present Motor exam (neuro): 5/5 motor strength present throughout Deep tendon reflexes (DTR's): Right brachioradialis reflex intensity grade: 2+, Left brachioradialis reflex intensity grade: 2+, Right patellar reflex intensity grade: 2+ and Left patellar reflex intensity grade: 2+ Extrem General: No edema Assessment and Plan Assessment & Plan (1) Annual physical exam: Code(s): Z00.00 - Encounter for general adult medical examination without abnormal findings (2) Hypertension: Code(s): I10 - Essential (primary) hypertension Qualifiers: Hypertension type: primary hypertension Qualified Code(s): I10 - Essential (primary) hypertension Plan: Continue with blood pressure medication. Decrease salt intake and exercise presently on lisinopril 30 mg once (3) Hypercholesterolemia: Code(s): E78.00 - Pure hypercholesterolemia, unspecified Plan: Avoid fried foods, chicken skin, eggs, butter margarine, pastries and meat. Be it pork or beef they have a lot of cholesterol LDL goal of less than 130 and triglyceride of less than 150 on atorvastatin 10 mg once a day (4) Impaired glucose tolerance: Code(s): R73.02 - Impaired glucose tolerance (oral) Plan: Decrease the amount of carbohydrate intake, pasta, bread, rice and potatoes are all sugar and that is aside from all the sweet stuff, remember that fruits are good but they are Sweet also. (5) Dermatitis, unspecified: Comment: nose Code(s): L30.9 - Dermatitis, unspecified Orders: Orders Comprehensive Met. Panel Today I10 - Essential (primary) hypertension Free T4 (Free Thyroxine) Today I10 - Essential (primary) hypertension Vitamin B12 and Folate Today R73.02 - Impaired glucose tolerance (oral) Vitamin D 25-OH Total Today R73.02 - Impaired glucose tolerance (oral) Complete Blood Count Auto Diff 6 Months R73.02 - Impaired glucose tolerance (oral) Comprehensive Met. Panel 6 Months R73.02 - Impaired glucose tolerance (oral) Thyroid Stimulating Hormone 6 Months R73.02 - Impaired glucose tolerance (oral) Complete Blood Count Auto Diff Today I10 - Essential (primary) hypertension Lipid Panel Today E78.00 - Pure hypercholesterolemia, unspecified, I10 - Essential (primary) hypertension Thyroid Stimulating Hormone Today I10 - Essential (primary) hypertension Hemoglobin A1c Today R73.02 - Impaired glucose tolerance (oral) Free T4 (Free Thyroxine) 6 Months R73.02 - Impaired glucose tolerance (oral) Lipid Panel 6 Months E78.00 - Pure hypercholesterolemia, unspecified, R73.02 - Impaired glucose tolerance (oral) Vitamin B12 and Folate 6 Months R73.02 - Impaired glucose tolerance (oral) Vitamin D 25-OH Total 6 Months R73.02 - Impaired glucose tolerance (oral) Hemoglobin A1c 6 Months R73.02 - Impaired glucose tolerance (oral) Referrals Dermatology Referral L30.9 - Dermatitis, unspecified Coding Level of Care Code Est Pt Prev Care >65y(56418) Diagnoses Annual physical exam Z00.00 Primary hypertension I10 Hypertension type: primary hypertension Hypercholesterolemia E78.00 Impaired glucose tolerance R73.02 Dermatitis, unspecified L30.9
== END 2023-10-18 16:46 | disposition home or self-care (01) ==
PROVIDERS: PCP Internal Medicine; Visit Provider Internal Medicine
DX: Z00.00 Encounter for general adult medical examination without abnormal findings (principal); I10 Essential (primary) hypertension; E78.00 Pure hypercholesterolemia, unspecified; R73.02 Impaired glucose tolerance (oral); L30.9 Dermatitis, unspecified
CPT/HCPCS: 99397

== ENCOUNTER 2024-04-24 07:15 | Outpatient (REF) | payer MEDICARE, SELFPAY ==
[2024-04-24 07:30] LABS: MANUAL DIFF FLAG NO
[2024-04-24 08:24] LABS: Basophils Absolute Auto 0.1 X10*3/uL (0.0-0.2); Basophils Percent Auto 1.2 % (0-2); Eosinophils Absolute Auto 0.2 X10*3/uL (0.0-0.4); Eosinophils Percent Auto 4.1 % (0-4); Hematocrit 40.3 % (37.0-47.0); Hemoglobin 13.5 g/dl (12.0-16.0); Imm Gran Abs Auto 0.02 X10*3/uL (0.00-0.03); Imm Gran Pct Auto 0.4 % (0.0-0.4); Lymphocytes Absolute Auto 1.8 X10*3/uL (1.2-4.9); Lymphocytes Percent Auto 31.2 % (20-40); Mean Corpuscular HGB Conc 33.5 g/dl (31.0-35.0); Mean Corpuscular Hemoglobin 31.5 pg (27.0-33.0); Mean Corpuscular Volume 94.2 fL (80.0-98.0); Mean Platelet Volume 9.8 fL (9.4-12.3); Monocytes Absolute Auto 0.5 X10*3/uL (0.1-1.2); Monocytes Percent Auto 8.5 % (2-11); Neutrophils Absolute Auto 3.1 x10*3/uL (2.0-8.3); Neutrophils Percent Auto 54.6 % (45-73); Platelet Count 279 X10*3/uL (160-400); Red Blood Count 4.28 X10*6/uL (4.20-5.50); Red Cell Distribution Width 13.2 % (11.0-16.0); White Blood Count 5.7 X10*3/uL (4.8-10.8)
[2024-04-24 08:32] LABS: Estimated Average Glucose 114 mg/dL; Hemoglobin A1C 131.2662 umol/L; Hemoglobin A1c % 5.6 % (<6.0); Total Hemoglobin (HGBA1C) 3501.6662 umol/L
[2024-04-24 09:14] LABS: Alanine Aminotransferase 39 U/L (0-31); Albumin Level 4.4 g/dL (3.5-5.0); Alkaline Phosphatase 54 U/L (39-117); Anion Gap 14 (12-20); Aspartate Amino Transferase 37 U/L (5-31); Bilirubin Total 0.6 mg/dL (0.0-1.0); Blood Urea Nitrogen 12 mg/dL (9-16); Calcium 10.2 mg/dL (8.4-10.2); Carbon Dioxide 26 mmol/L (22-29); Chloride 102 mmol/L (96-108); Cholesterol 178 mg/dL (<200); Estimated Glomerular Filt Rate > 60; Glucose Random 107 mg/dL (60-115); HDL Cholesterol 49 mg/dL (>40); LDL Cholesterol Calculated 112 mg/dL (<100); Potassium 4.2 mmol/L (3.3-5.1); Sodium 138 mmol/L (135-145); Total Protein 7.6 g/dL (6.5-8.0); Triglycerides 88 mg/dL (<150)
[2024-04-24 09:34] LABS: Free T4 (Free Thyroxine) 1.09 ng/dL (0.71-1.85); Thyroid Stimulating Hormone 1.18 uIU/mL (0.32-4.0)
[2024-04-24 09:45] LABS: Folate 15.8 ng/mL (> or = 4.0); Vitamin B12 1302 pg/mL (200-900)
== END 2024-04-24 07:16 | disposition home or self-care (01) ==
LOC: HO.LAB 07:15
PROVIDERS: PCP Internal Medicine; Visit Provider Internal Medicine
DX: I10 Essential (primary) hypertension (principal); R73.02 Impaired glucose tolerance (oral); E78.00 Pure hypercholesterolemia, unspecified
CPT/HCPCS: 36415; 80053; 80061; 82306; 82607; 82746; 83036; 84439; 84443; 85025

== ENCOUNTER 2024-04-26 10:22 | Outpatient (AMB) | payer MEDICARE, SELFPAY ==
[2024-04-26 10:23] VITALS: BP 174/72; PULSE 63; O2SAT 97; BMI 26.0
--- NOTE | 2024-04-26 10:24 | MHC.PC.OV ---
Vital Signs 04/26/24 10:23 04/26/24 10:54 Height 5 ft 8 in Weight 171 lb 0.2 oz BMI 26.0 BP 174/72 H 170/90 H Blood Pressure Location Lt brachial Lt brachial Position Sitting Sitting Pulse 63 Pulse Source Pulse Oximeter Pulse Oximetry (%) 97 Oxygen Delivery Method Room Air Intake Visit Reasons: Hypertension Allergies amlodipine [Norvasc] Allergy (Intermediate, Verified 04/26/24 10:28) hives (to the binder) Sulfa (Sulfonamide Antibiotics) Allergy (Intermediate, Verified 04/26/24 10:28) swelling of mouth Medication List - Last Reconciled 04/26/24 by Laura Garcia PA-C aspirin 81 mg PO DAILY atorvastatin 10 mg PO DAILY calcium carbonate-vitamin D3 600 mg-12.5 mcg (500 unit) (Calcium 600 with Vitamin D3) 1 cap PO BID cetirizine (Zyrtec) 10 mg PO DAILY PRN glucos sul [id number] 550-30-1 mg (Glucosamine Chondroitin) 1 cap PO DAILY lisinopril 30 mg PO DAILY multivitamin 1 tab PO DAILY Tobacco use date assessed: 07/20/23 Fall risk assessment: No Falls in past year Last assessed Fall Risk: 04/26/24 Dental Screening Dental Screen Date: 07/20/23 HPI Hypertension HPI Details 78-year-old female with a history of hypertension hypercholesterolemia history of nondisplaced fracture of the humerus impaired glucose tolerance coming in for blood pressure follow up last seen by Dr. Newman october 2023. Patient has been taking blood pressures at home and states values are always below 140/90. Typically they are in the 120/70 range. She has no other concerns today. [facility] Medical History (Updated 10/18/23 @ 16:29 by Raman Newman MD) Breast asymmetry Osteopenia COVID-19 virus infection Left carotid artery stenosis Arthritis COVID-19 vaccine series completed Breast cancer screening by mammogram Tubular adenoma of colon Osteopenia Tubular adenoma of colon Allergic rhinitis Hypercholesterolemia Hypertension Surgical History H/O colonoscopy History of cataract surgery History of bilateral tubal ligation Family History Mother Cancer Uterine cancer Social History (Updated 10/18/23 @ 16:31 by Raman Newman MD) Household Members: None Housing: House Are you a primary medicare contact specialist to a significant other at home: No Do you presently have visiting nurse or other home services: No Alcohol intake: former Comment: last one 2022 Patient Tobacco Use Status: Never used Tobacco e-Cigarette/Vaping Use: Never Used service: No Current occupational status: retired Sexual orientation: Straight/Heterosexual Gender identity: Female Cognitive needs: No Hearing needs: No Vision needs: Yes Female Reproductive History Menstrual Age of Menarche: 15 Questionnaire Thrive Questionnaire Date Thrive assessed: 07/20/23 AUDIT C Alcohol Use Questionnaire (AUDIT-C) 1. How often do you have a drink containing alcohol?: Never 3. How often do you have six or more drinks on one occasion?: Never Total Score: 0 REG-7 AMB Questionnaire REG-7 Date REG - 7 assessed: 07/20/23 Source: Developed by Drs. David Chaudhari, Lindy Pulido, Byron Lomas and colleagues, with an educational sophia from [employer]. Review of Systems Const Denies body aches, Denies chills and Denies fever(s) Eyes Denies blind spots, Denies blurry vision and Denies change in vision ENT Reports no additional complaints Card Denies chest pain, Denies leg edema, Denies lightheadedness and Denies dyspnea Resp Denies dyspnea GI Denies abdominal pain, Denies nausea and Denies vomiting Reports no additional complaints Musc Reports no additional complaints Skin/Breast Reports system reviewed and no additional complaints, except as documented Physical exam (Primary Care) Vital Signs: Last Vital Signs Pulse 63 04/26/24 10:23 BP 174/72 H 04/26/24 10:23 Pulse Ox 97 04/26/24 10:23 Oxygen Delivery Method Room Air 04/26/24 10:23 BMI result Body Mass Index 26.0 Tobacco/Smoking Status: Tobacco use Status Tobacco use date assessed 07/20/23 04/26/24 10:24 Patient Tobacco Use Status Never used Tobacco 04/26/24 10:24 e-Cigarette/Vaping Use Never Used 04/26/24 10:24 Thrive Assessment: Date of Thrive Assessment Date Thrive assessed 07/20/23 04/26/24 10:24 Const General: cooperative, healthy appearing, comfortable and no acute distress Orientation/consciousness: patient oriented x3 HENMT Head: Yes normocephalic Ears: hearing grossly normal bilaterally General nose exam: Normal external nose present Eyes General: appearance normal, both eyes and all related structures Conjunctivae: conjunctivae normal Neck Neck: Yes full ROM and Yes no lymphadenopathy Resp Effort & Inspection: normal respiratory effort Auscultation: clear to auscultation bilaterally, no crackles, no rales, no rhonchi and no wheezes Cardio Rate: regular rate Rhythm: regular rhythm Skin General skin exam: no rashes or lesions noted Neuro General: patient oriented x3 Gait exam (Neuro): Normal gait present Extrem General: Yes normal to inspection, Yes full ROM and No edema Psych Affect: normal affect Attitude: cooperative Insight: Good insight present (Psych) Judgement: Good judgement present (Psych) Coding Level of Care Code Est Pt Level 3 (21158) Diagnoses Impaired glucose tolerance R73.02 Hypercholesterolemia E78.00 Primary hypertension I10 Hypertension type: primary hypertension Assessment & Plan Assessment & Plan (1) Impaired glucose tolerance: Code(s): R73.02 - Impaired glucose tolerance (oral) Category: Medical Plan: Decrease the amount of carbohydrates such as pasta, bread, rice, and potatoes and limit the amount of sweets. Although fruits are generally healthy they should be eaten in moderation as they are still high in sugar. (2) Hypercholesterolemia: Code(s): E78.00 - Pure hypercholesterolemia, unspecified Category: Medical Plan: Avoid foods that are high in cholesterol such as red meat, fried foods, eggs and baked goods. Triglyceride goal of less than 150 and LDL goal of less than 130. Continue on atorvastatin 10 mg. Cholesterol at goal on last labs (3) Hypertension: Code(s): I10 - Essential (primary) hypertension Category: Medical Qualifiers: Hypertension type: primary hypertension Qualified Code(s): I10 - Essential (primary) hypertension Plan: Continue on current blood pressure medication. Avoid salt intake and encourage healthy diet and regular exercise. Advised patient to continue taking blood pressure at home if they begin to be over 140/90 to reach out to the office. Blood pressure elevated in the office today and discussed the risks of prolonged high blood pressure. Patient agrees to reach out to the office if blood pressure becomes elevated at home she states she is very anxious when she is in the office. Plan This note was constructed using voice recognition software. While every effort has been made to ensure accuracy and program coordinator for residence life, still areas may have been included sometimes these areas may affect the content or meeting of the given symptoms. Total time spent caring for the patient today was 20 minutes. This includes time spent before the visit reviewing the chart, time spent during the visit, and time spent after the visit and documentation.
[2024-04-26 10:54] VITALS: BP 170/90
== END 2024-04-26 11:03 | disposition home or self-care (01) ==
PROVIDERS: PCP Internal Medicine
DX: R73.02 Impaired glucose tolerance (oral) (principal); E78.00 Pure hypercholesterolemia, unspecified; I10 Essential (primary) hypertension

== ENCOUNTER → 2024-04-26 10:22 | Outpatient (BNVA) | payer MEDICARE, SELFPAY | PROVIDERS: PCP Internal Medicine | DX: R73.02 Impaired glucose tolerance (oral) (principal); E78.00 Pure hypercholesterolemia, unspecified; I10 Essential (primary) hypertension | CPT/HCPCS: 99212 ==

== ENCOUNTER 2024-07-13 11:18 | Emergency (ER) | payer MEDICARE, SELFPAY ==
--- NOTE | ~2024-07-13 | XR_ITS ---
EXAMINATION: XR HAND AND WRIST COMPLETE RIGHT HISTORY: Fall COMPARISON: There are no prior studies available for comparison. FINDINGS: Four views of the right wrist including a scaphoid view are submitted. Osseous mineralization is normal. There is a nondisplaced transverse fracture of the distal radius. There is an associated ulnar styloid fracture. No additional fracture is seen. There is no dislocation. There is moderate to severe osteoarthritis of the 1st carpometacarpal joint, with joint space narrowing and osteophyte formation. The soft tissues are unremarkable. XR/XR hand wrist RT IMPRESSION: Nondisplaced transverse fracture of the distal radial metaphysis with an associated fracture of the ulnar styloid. Electronically signed by: David Grey MD 07/13/2024 12:58 PM [facility]
--- NOTE | ~2024-07-13 | CT_ITS ---
EXAMINATION: CT HEAD WITHOUT IV CONTRAST HISTORY: Fall hit head rule out bleed. TECHNIQUE: Unenhanced helical CT of the head was performed per standard departmental protocol. Coronal and sagittal reformats of the head were also evaluated. One or more of the following techniques was used for dose reduction: Automated exposure control, adjustment of the mA and/or kV according to patient size, use of iterative reconstruction technique. DLP: 699 mGy-cm COMPARISON: There are no prior studies for comparison. FINDINGS: BRAIN: The brain parenchyma is unremarkable. There is normal lawrence/white differentiation. The ventricular system is normal in size and configuration. There is no mass effect or midline shift. No intra- or extra-axial fluid collections are identified. SINUSES: There are small polyps versus mucous retention cysts in the bilateral maxillary sinuses. The mastoid air cells and middle ear cavities are well pneumatized. ORBITS: The visualized orbits are unremarkable. BONES/SOFT TISSUES: The extracranial soft tissues are unremarkable. The calvarium is intact. No suspicious lytic or sclerotic lesions. CT/CT head/brain wo IV con IMPRESSION: No acute intracranial abnormality. No evidence of intracranial hemorrhage. Electronically signed by: David Grey MD 07/13/2024 01:45 PM [facility]
--- NOTE | ~2024-07-13 | CT_ITS ---
EXAMINATION: CT CERVICAL SPINE WITHOUT CONTRAST CLINICAL INFORMATION: Fall, head strike. COMPARISON: None available. TECHNIQUE: 3 mm thin axial and reformatted 2 mm thin sagittal and coronal images of cervical spine were obtained. This CT examination was performed using dose optimization techniques as appropriate, variously including the following: *Automated exposure control *Adjustment of mA and/or kV according to patient size (this includes techniques or standardized protocols for targeted exams where dose is matched to indication/reason for exam; i.e. extremities or head) *Use of iterative reconstruction technique DLP: 337 mGy/cm. FINDINGS: There is maintained cervical lordosis. The vertebral heights are normal. There is grade 1 retrolisthesis C5 over C6. There is loss of C5-6 and C6-7 disc heights. There is loss of C5-6 and C6-7 disc levels. Rest of the disc levels are normal. The craniovertebral junction and the C1-C2 alignment is normal. No visible acute fracture, dislocation or subluxation seen. The prevertebral and paravertebral soft tissues are normal. The pharyngeal and tracheal airway appears widely patent. Thyroid lobes are symmetrical and normal. The lung apices are clear. CT/CT cervical spine wo IV con IMPRESSION: No acute fracture, dislocation or subluxation seen. Fleischner guidelines were followed. Electronically signed by: Jasbir Velasquez MD 07/13/2024 04:49 PM [facility]
[2024-07-13 11:44] VITALS: BP 183/80; PULSE 82; RESP 20; TEMP 36.6; O2SAT 99; BMI 27.1
--- NOTE | 2024-07-13 11:49 | ED.FALL ---
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 States tripped on uneven sidewalk, falling on right side, denies LOC, ambulatory since incident. Admits to taking baby ASA. Denies symptoms prior to fall. Denies lightheadedness/dizziness, vision change, nausea/vomiting, neck/back pain. Tetanus up-to-date Related Data Home Medications ?Medication ?Instructions ?Recorded ?Confirmed aspirin 81 mg tablet,delayed 81 mg PO DAILY 09/06/20 04/26/24 release multivitamin 1 tab PO DAILY 12/03/20 04/26/24 calcium 600 mg (as 1 cap PO BID 03/12/21 04/26/24 carbonate)-vitamin D3 12.5 mcg (500 unit) capsule (Calcium with Vit D3) cetirizine 10 mg tablet (Zyrtec) 10 mg PO DAILY PRN Allergy Symptoms 03/12/21 04/26/24 glucosamine sulf dipot 1 cap PO DAILY 11/12/21 04/26/24 chlr,msm,chond 550 mg-C 30 mg-malik 1 mg capsule (Glucosamine Chondroitin) Previous Rx's ?Medication ?Instructions ?Recorded atorvastatin 10 mg tablet 10 mg PO DAILY #90 tabs 01/02/24 lisinopril 30 mg tablet 30 mg PO DAILY #90 tabs 01/02/24 Allergies Allergy/AdvReac Type Severity Reaction Status Date / Time amlodipine [Norvasc] Allergy Intermediate hives (to Verified 07/13/24 11:49 the binder) Sulfa (Sulfonamide Allergy Intermediate swelling Verified 07/13/24 11:49 Antibiotics) of mouth Review of Systems Review of Systems: Yes all other systems are reviewed and are negative Constitutional: Constitutional: Reports as per [facility] Past Medical History Attestation statement: The following information was validated with the patient. Source: old records reviewed Medical History Breast asymmetry Osteopenia COVID-19 virus infection Left carotid artery stenosis Arthritis COVID-19 vaccine series completed Breast cancer screening by mammogram Tubular adenoma of colon Osteopenia Tubular adenoma of colon Allergic rhinitis Hypercholesterolemia Hypertension Surgical History H/O colonoscopy History of cataract surgery History of bilateral tubal ligation Family History Family History Mother Cancer Uterine cancer Social History Social History Household Members: None Housing: House Are you a primary daycare teacher to a significant other at home: No Do you presently have visiting nurse or other home services: No Alcohol intake: former Comment: last one 2022 Patient Tobacco Use Status: Never used Tobacco e-Cigarette/Vaping Use: Never Used Advance Directives: No Advance Directives Information Provided: No service: No Current occupational status: retired Sexual orientation: Straight/Heterosexual Gender identity: Female Cognitive needs: No Hearing needs: No Vision needs: Yes Physical Exam Vital Signs: Vital Signs: Last Vital Signs Temp 98.3 F 07/13/24 16:35 Pulse 86 07/13/24 16:35 Resp 14 07/13/24 16:35 BP 160/75 H 07/13/24 16:35 Pulse Ox 99 07/13/24 16:35 O2 Del Method Room Air 07/13/24 16:35 BMI result Body Mass Index 27.1 Const: General: cooperative, healthy appearing and no acute distress Orientation/consciousness: patient oriented x3 Limitations: no limitations HEENT: Other: Two linear lacerations noted to R eyebrow. +slight bleeding. No ocular involvement Head: Yes normal to inspection, Yes atraumatic, No Theodore's sign and No raccoon eyes Ears: hearing grossly normal bilaterally General nose exam: Normal external nose present Throat: Yes posterior oropharynx normal Eyes: General: appearance normal, both eyes and all related structures Pupils: Equal, round and reactive pupils present EOM: EOMs intact bilaterally and no movement deficit Direct Ophthalmoscopy: no photophobia Neck: Neck: Yes normal visual inspection and Yes no meningeal signs Resp: Effort & Inspection: normal respiratory effort and no respiratory distress Auscultation: clear to auscultation bilaterally Cardio: Rate: regular rate Heart sounds: S1 normal heart sound present and S2 normal heart sound present GI: Inspection: Yes normal to inspection Palpation (GI): Soft to palpation, nontender, no guarding and not rigid Back/Spine/Pelvis: Other: No midline cervical/thoracic/lumbar spinous tenderness/step-off or deformity Skin: Rashes: no rashes Wounds: no wounds Neuro: General: patient oriented x3, tone normal and no meningeal signs Cranial nerves: Yes CN's II-XII intact bilaterally and Yes Equal, round and reactive pupils present Gait exam (Neuro): Normal gait present Extrem: Other: Right wrist with appreciable swelling. Diffusely tender to palpation. Limited ROM secondary to pain. Neurovascularly intact. [id number] opposition intact. Elbow nontender Course Course Course Narrative: Patient had trip and fall on sidewalk this morning hitting forehead with laceration, and also injured right wrist Patient ambulates easily and interacts normally Head CT and right wrist x-ray ordered This is rapid medical exam done in triage pending full evaluation exam and disposition by ER provider CT head/brain wo IV con IMPRESSION: No acute intracranial abnormality. No evidence of intracranial hemorrhage. XR hand wrist RT IMPRESSION: Nondisplaced transverse fracture of the distal radial metaphysis with an associated fracture of the ulnar styloid. > sugar-tong splint and sling applied. Patient is to follow up with Orthopedics Results discussed with patient including worrisome signs and symptoms and strict return precautions, and when to return to the emergency department. They verbalized understanding and feel safe for discharge at this time. Medications Administered Discontinued Medications Generic Name Dose Route Start Last Admin Trade Name Pawan PRN Reason Stop Dose Admin Lidocaine HCl 5 ml 07/13/24 16:13 07/13/24 17:18 Lidocaine Hcl 1 % Mpf 5 Ml Vial INFILTRATI 07/13/24 16:14 5 ml ONCE ONE Administration Procedures Laceration Laceration 1: Site: face Side (If applicable): right Size (cm): 3 Description: linear Depth: simple, single layer Local Anesthetic: lidocaine 1% Amount of anesthesia used (mL): 3 Pre-repair: wound explored and irrigated extensively Skin layer closed with: nylon Size (cm): 6-0 Number of sutures: 7 Technique: simple, interrupted Orthopedic Splinting/Casting Injury #1: Side: right Upper Extremity Injury Location: wrist Upper Extremity Immobilizer: sugar tong splint Medical Decision Making Medical Decision Making MDM Narrative: 79-year-old female with a past medical history HTN, HLD, arthritis, presenting to the ED complaining of right-sided facial laceration and right wrist pain s/p 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 On exam vital signs stable, NAD, nontoxic appearing, physical exam as noted above with two lacerations noted to right eyebrow and right wrist swelling/limited ROM and diffuse tenderness. Concern for ICH vs fractures. Low suspicion for ACS/dissection. No evidence of cellulitis. Plan: Head/C-spine CT, x-rays, repair wound Please refer to course for remaining clinical decision making, interpretation of labs/imaging results, and discussions with consultants and/or family members. Differential Diagnosis Differential Diagnoses: The differential diagnosis associated with the presentation includes As above Admission/Observation Consideration of admission/observation: Escalation of care including admission/observation considered Lab Data MDM Lab Attestation statement: I reviewed the patient's lab results. Independent Interpretation I performed an independent interpretation of an: Plain X-Ray and CT Scan Radiology Impression Discussion of test interpretation with radiology: I have reviewed the radiologist's reading. Independent Historian Clinical information obtained from an independent historian. History obtained from or confirmed by: Other (son) External Record Review External record reviewed: Inpatient record, Office record, Outpatient record, Prior outpatient labs, Prior outpatient radiology, Primary care record and Outside ED record Tests considered The following testing was considered but not selected: As above Prescription Management I considered prescription management with: Other Chronic Conditions Patient?s care impacted by: Hypertension and Other Social Determinants Patient?s care significantly limited by Social Determinants of Health including: Other Social Determinant of Health Discharge Plan Discharge Clinical Impression: Distal radial fracture, Fracture of ulnar styloid, Facial laceration Patient Disposition: Home, Self-Care Instructions: Laceration (DC), Wrist Fracture in Adults (ED) Additional Instructions: You broke your wrist. PLEASE KEEP SPLINT ON, DRY AND CLEAN Ice and elevate Take Tylenol and ibuprofen for pain CALL THE MEAT AND POULTRY INSPECTOR ON TUESDAY FOR CLOSE FOLLOW-UP Your wounds were repaired today in the emergency department. Keep dry and clean. You need to return to any emergency department, urgent care, or your PCPs office in 5 days for suture removal Apply bacitracin and or Neosporin daily Once sutures are removed apply anti scar cream like Mederma If area begins look infected, is red, there is drainage, streaking, or you have fever please return to the emergency department Prescriptions: No Action aspirin 81 mg tablet,delayed release (DR/EC) 81 mg PO DAILY atorvastatin 10 mg tablet 10 mg PO DAILY Qty: 90 3RF lisinopril 30 mg tablet 30 mg PO DAILY Qty: 90 3RF Glucosamine Chondroitin 550-30-1 mg Capsule 1 cap PO DAILY cetirizine [Zyrtec] 10 mg tablet 10 mg PO DAILY PRN (Reason: Allergy Symptoms) calcium carbonate-vitamin D3 [Calcium 600 with Vitamin D3] 600 mg(1,500mg) -500 unit capsule 1 cap PO BID multivitamin Tablet 1 tab PO DAILY Referrals: [facility] [Provider Group] - 1 week ED Physician,Generic [Emergency Provider] - 5 days (for suture removal) Print Language: Irish
[2024-07-13 16:35] VITALS: BP 160/75; PULSE 86; RESP 14; TEMP 36.8; O2SAT 99
[2024-07-13] MEDS: Lidocaine HCl 1 % MPF 5 ML VIAL INFILTRATI (17:18)
--- NOTE | 2024-07-13 18:19 | MHC.CM.ED ---
CM met with patient and her son at the request of Ayanna BALDWIN. Pt has a fx r wrist s/p fall. Pt is very angry and upset that she needs to have her wrist splinted to her elbow. The provider has already spoken to the patient about the need to immobilize her fracture until she sees the ortho doctor. Son is at the bedside. Pt does not want to go to a correction. Wants splint removed. Provider will not remove the splint. Son tells CM he will help his mother. Pt remains very angry. C/O being in the ED too long. Wanting her discharge paperwork. CM explained that staff would get her paperwork soon. Asked about pain. Pt states she will not take pain medications. Encouraged patient to consider pain meds if needed. Pt states she may remove the splint herself at home. CM strongly encouraged patient not to do that, as she could cause her fracture to be displaced. Pt lives alone. Does not use any DME. Has no services. Pt will d/c home to follow up with ortho as an outpatient. Son is in agreement. Provider aware.
--- NOTE | 2024-07-13 18:35 | PC.NURSE ---
Pt refused sling states she has one at home.
[2024-07-13 18:36] VITALS: BP 171/85; PULSE 85; RESP 18; TEMP 36.8; O2SAT 97
[2024-07-13 18:37] VITALS: BP 171/95; PULSE 93; RESP 14; O2SAT 95
== END 2024-07-13 18:37 | disposition home or self-care (01) ==
PROVIDERS: Emergency Provider Emergency Medicine; PCP Internal Medicine
DX: S52.501A Unspecified fracture of the lower end of right radius, initial encounter for closed fracture (principal); S52.611A Displaced fracture of right ulna styloid process, initial encounter for closed fracture; S01.111A Laceration without foreign body of right eyelid and periocular area, initial encounter; R51.9 Headache, unspecified; M54.2 Cervicalgia; M25.531 Pain in right wrist; W01.0XXA Fall on same level from slipping, tripping and stumbling without subsequent striking against object, initial encounter; Y93.01 Activity, walking, marching and hiking; Y92.480 Sidewalk as the place of occurrence of the external cause; Y99.8 Other external cause status; Z79.899 Other long term (current) drug therapy
CPT/HCPCS: 12013; 29125; 70450; 72125; 73110; 73130; 99283; 99284; J2003

== ENCOUNTER → 2024-07-13 11:48 | Outpatient (BNV) | payer MEDICARE, SELFPAY | PROVIDERS: PCP Internal Medicine; Visit Provider Radiology Diagnostic Radiology | DX: S52.325A Nondisplaced transverse fracture of shaft of left radius, initial encounter for closed fracture (principal); M54.2 Cervicalgia; R51.9 Headache, unspecified | CPT/HCPCS: 72125 ==

== ENCOUNTER 2024-07-20 12:05 | Emergency (ER) | payer MEDICARE, SELFPAY ==
[2024-07-20 12:20] VITALS: BP 162/78; PULSE 85; RESP 18; TEMP 36.3; O2SAT 99; BMI 25.8
--- NOTE | 2024-07-20 12:29 | ED.GENADULT ---
HPI - General Adult General Chief complaint: Skin/Abscess/Foreign Body Stated complaint: Suture Removal Time Seen by Provider: 07/20/24 12:22 Source: patient Limitations: no limitations History of Present Illness ED Provider: Kaylin Beltrán PA-C HPI narrative: 79-year-old female with recent right brow laceration presents for suture removal. Related Data Home Medications ?Medication ?Instructions ?Recorded ?Confirmed aspirin 81 mg tablet,delayed 81 mg PO DAILY 09/06/20 04/26/24 release multivitamin 1 tab PO DAILY 12/03/20 04/26/24 calcium 600 mg (as 1 cap PO BID 03/12/21 04/26/24 carbonate)-vitamin D3 12.5 mcg (500 unit) capsule (Calcium with Vit D3) cetirizine 10 mg tablet (Zyrtec) 10 mg PO DAILY PRN Allergy Symptoms 03/12/21 04/26/24 glucosamine sulf dipot 1 cap PO DAILY 11/12/21 04/26/24 chlr,msm,chond 550 mg-C 30 mg-malik 1 mg capsule (Glucosamine Chondroitin) Previous Rx's ?Medication ?Instructions ?Recorded atorvastatin 10 mg tablet 10 mg PO DAILY #90 tabs 01/02/24 lisinopril 30 mg tablet 30 mg PO DAILY #90 tabs 01/02/24 Allergies Allergy/AdvReac Type Severity Reaction Status Date / Time amlodipine [Norvasc] Allergy Intermediate hives (to Verified 07/20/24 12:22 the binder) Sulfa (Sulfonamide Allergy Intermediate swelling Verified 07/20/24 12:22 Antibiotics) of mouth Review of Systems Review of Systems: Yes all other systems are reviewed and are negative Constitutional: Constitutional: Denies fatigue and Denies fever(s) Integumentary/Breasts: Skin/Breast: Denies erythema and Denies sores Endocrine: Endocrine: Denies fatigue PMFSH Past Medical History Attestation statement: The following information was validated with the patient. Medical History Breast asymmetry Osteopenia COVID-19 virus infection Left carotid artery stenosis Arthritis COVID-19 vaccine series completed Breast cancer screening by mammogram Tubular adenoma of colon Osteopenia Tubular adenoma of colon Allergic rhinitis Hypercholesterolemia Hypertension Surgical History H/O colonoscopy History of cataract surgery History of bilateral tubal ligation Family History Family History Mother Cancer Uterine cancer Social History Social History Household Members: None Housing: House Are you a primary health care administrator to a significant other at home: No Do you presently have visiting nurse or other home services: No Alcohol intake: former Comment: last one 2022 Patient Tobacco Use Status: Never used Tobacco e-Cigarette/Vaping Use: Never Used Advance Directives: No Advance Directives Information Provided: Yes service: No Current occupational status: retired Sexual orientation: Straight/Heterosexual Gender identity: Female Cognitive needs: No Hearing needs: No Vision needs: Yes Physical Exam ED Vital Signs: Vital Signs - 24 hr 07/20/24 12:20 Temperature 97.3 F Pulse Rate 85 Respiratory Rate 18 Blood Pressure 162/78 H Pulse Oximetry 99 Oxygen Delivery Method Room Air BMI result Body Mass Index 25.8 Const Other: Alert Orientation/consciousness: patient oriented x3 Resp Effort & Inspection: normal respiratory effort Cardio Other: Normal peripheral perfusion Skin Other: 7 sutures are intact superior to the right brow. There was no overlying erythema, warmth or purulent drainage Neuro General: patient oriented x3, gait normal, no focal motor deficits and CN's II-XI intact bilaterally Psych Other: Cooperative Medical Decision Making Medical Decision Making MDM Narrative: 79-year-old female with recent right brow laceration presents for suture removal. No relevant chronic issues History: Per patient I have considered the following differential diagnoses: Suture removal, cellulitis, purulent cellulitis Plan: Sutures intact there is no evidence of infection they were removed. Discharge Plan Discharge Clinical Impression: Encounter for removal of sutures Patient Disposition: Home, Self-Care Additional Instructions: 7 stitches were removed, there was no evidence of infection. Prescriptions: No Action aspirin 81 mg tablet,delayed release (DR/EC) 81 mg PO DAILY atorvastatin 10 mg tablet 10 mg PO DAILY Qty: 90 3RF lisinopril 30 mg tablet 30 mg PO DAILY Qty: 90 3RF Glucosamine Chondroitin 550-30-1 mg Capsule 1 cap PO DAILY cetirizine [Zyrtec] 10 mg tablet 10 mg PO DAILY PRN (Reason: Allergy Symptoms) calcium carbonate-vitamin D3 [Calcium 600 with Vitamin D3] 600 mg(1,500mg) -500 unit capsule 1 cap PO BID multivitamin Tablet 1 tab PO DAILY Print Language: Khmer
[2024-07-20 12:38] VITALS: BP 162/78; PULSE 85; RESP 18; TEMP 36.3; O2SAT 99
--- OUTSIDE RECORDS SUMMARY | 2024-07-20 13:19 | XMS_ITS | Patient Health Record ---
Author Organization [facility] Address [address] [place] [address] Care Team Providers Care Potato Loader Name Role Phone Po Raman SANDOVAL Primary Care Provider David España [phone] ALLERGIES Allergen (clinical drug ingredient) Drug/Non Drug Allergy documented on EMR Reaction Allergy Type Onset Date Status Sulfa Unknown Drug Allergy Active REASON FOR REFERRAL No Information MEDICATIONS Medication SIG (Take, Route, Frequency, Duration) Notes Start Date End Date Status One-A-Day Womens Act marianne Calcium 600 600mg Ac tive Aspir-81 81mg Active ZyrTEC Allergy Activ e Lisinopril 20mg Acti ve Atorvastatin Calcium 10mg Active Glucosamine Chondr 500 Complex Active IMMUNIZATIONS Vaccine Route Administration Date Status Comme nts Influenza Unknown 02/11/2021 Administered SOCIAL HISTORY Sex Assigned At : Social History Observation Description Sex Assigned At Unknown PROBLEMS Problem Type ICD Code Onset Dates Problem Status W/U Status Risk SNOMED Code Notes Problem Encounter for screening for malignant neoplasm of colon (Z12.11) Active confirmed 055049033 Problem Encounter for screening for malignant neoplasm of rectum (Z12.12) Active confirmed Screening fo r malignant neoplasm of rectum (205880957) Problem Hx of adenomatous colonic polyps (Z86.010) Active confirmed 392176876 Problem Long-term use of aspirin therapy (Z79.82) Active confirmed 069911636 Problem Preprocedural examination (Z01.818) Active confirmed 84685233 Problem History of adenomatous polyp of colon (Z86.010) Active confirmed 050171755 Problem History of colonic polyps (Z86.010) Active confirmed History of poly p of colon (006891224) Problem Diverticulosis of colon (K57.30) Active confirmed Diverticulosi s of colon (496624870) PLAN OF TREATMENT Future Test Test Name Order Date COLONOSCOPY 06/26/2015 COLONOSCOPY 07/14/2021 COLONOSCOPY 08/30/2021 Insurance Providers Payer Name Payer Address Payer Phone Subscriber Number Group Number Insured Name Patient Relationship to Insured Coverage Start Date Coverage End Date [facility] [employer] [address] [place] [address] [id number] [id number] [id number] Self - patient is the insured MEDICAL (GENERAL) HISTORY Medical History History ICD Code Hypertension Hyperlipidemia Denies IN,DM,CVA,Lung disease,renal dise ase Left carotid artery < 50% occluded Colonoscopy in May 2012 with the removal of 2 greater than 1 cm tubular adenomas, one of which was relatively flat in the ascending colon; she had a negative colonoscopy in [address] [place]. Colonoscopy in 08/2015--2 small tubular a denomas removed from the cecum Surgical History Surgery Date(Month/Year) BTL Cataract surgery
--- OUTSIDE RECORDS SUMMARY | 2024-07-20 13:19 | XMS_ITS | Clinical Summary ---
Author Organization [facility] Address [address] [place] [address] Phone Care Team Providers Care Biomedical Analytical Scientist Name Role Phone Raman Newman MD Primary Care Provider [phone] Encounters Date Type Department Care Team Description 05/18/2024 9:25 AM EST - 05/18/2024 11:59 PM EST Hospital Encounter [facility] Ultrasound [address] [place] [phone] Breast asymmetry Discharge Disposition: Home or Self Care 05/18/2024 9:01 AM EST - 05/18/2024 11:59 PM [facility] Hospital Encounter [facility] at [address] [phone] Breast asymmetry Discharge Disposition: Home or Self Care 05/15/2024 6:53 AM EST - 05/15/2024 11:59 PM [facility] Hospital Encounter [facility] at [address] [phone] Encounter for screening mammogram for breast cancer Discharge Disposition: Home or Self Care from Last 3 Months Surgical History Surgery Date Site/Laterality Comments BREAST CYST ASPIRATION Social History Tobacco Use Types Packs/Day Years Used Date Smoking Tobacco: Never Assessed Sex and Gender Information Value Date Recorded Sex Assigned at Not on file Gender Identity Not on file Sexual Orientation Not on file Job Start Date Occupation Industry Not on file Not on file Not on file Obstetrics History Para Term AB IAB SAB Ectopic Multiple Livin g Live Births 2 Last Filed Vital Signs Vital Sign Reading Time Taken Comments Blood Pressure - - Pulse - - Temperature - - Respiratory Rate - - Oxygen Saturation - - Inhaled Oxygen Concentration - - Weight 76.2 kg (168 lb) 05/15/2024 7:30 AM EST Height 172.7 cm (5' 8 ) 05/15/2024 7:30 AM EST Body Mass Index 25.54 05/15/2024 7:30 AM EST Plan of Treatment Health Maintenance Due Date Last Done Comments RSV Immunization Patients 60+ Years Old (1 - 1-dose 75+ series) 2022 Depression Screening 05/16/2022 Falls Risk Assessment 05/16/2022 Hepatitis C Screening 05/16/2022 Medicare Annual Wellness Visit 05/16/2022 Osteoporosis Screening (Bone Density Screening) 05/16/2022 Social Influencers of Health Screening 05/16/2022 COVID-19 Vaccine ( season) 2024 04/30/2023, 10/07/2021, 03/19/2021, Additional history exists DTaP,Tdap,and Td Vaccines (2 - Td or Tdap) 06/02/2032 06/02/2022 Pneumococcal Vaccine: 65+ Years Completed 03/06/2019, 02/16/2017 Zoster Vaccines Completed 09/26/2019, 07/13/2019 Influenza Vaccine Completed 02/28/2024, , 04/06/2022, Additional history exists HIB Vaccines Aged Out No longer eligi ble based on patient's age to complete this topic HPV Vaccines Aged Out No longer eligi ble based on patient's age to complete this topic Hepatitis A Vaccines Aged Out No long er eligible based on patient's age to complete this topic Hepatitis B Vaccines Aged Out No long er eligible based on patient's age to complete this topic IPV Vaccines Aged Out No longer eligi ble based on patient's age to complete this topic MMR Vaccines Aged Out No longer eligi ble based on patient's age to complete this topic Meningococcal ACWY Vaccine Aged Out N o longer eligible based on patient's age to complete this topic RSV Immunization Patients Under 20 months Aged Out No longer eligible based on patient's age to complete this topic Varicella Vaccines Aged Out No longer eligible based on patient's age to complete this topic Procedures Procedure Name Priority Date/Time Associated Diagnosis Comments US BREAST LIMITED LEFT Routine 05/18/2024 9:48 AM EST Breast asymmetry MG MAMMO DIAGNOSTIC ADDL VIEWS LEFT Routine 05/18/2024 9:46 AM EST Breast asymmetry MG MAMMO DIGITAL SCREENING W DINO BILAT Routine 05/15/2024 7:31 AM EST Encounter for screening mammogram for breast cancer from Last 3 Months Results * US Breast Limited Left (05/18/2024 9:48 AM EST) Anatomical Region Laterality Modality Breast Left Ultrasound 05/18/2024 9:20 AM EST Impressions 05/18/2024 9:47 AM EST Cyst in the left breast can be considered benign. BI-RADS CATEGORY: Mammography: 2 - BENIGN Ultrasound: 2 - BENIGN RECOMMENDATIONS: Screening bilateral mammogram is recommended in 1 year. Mammo Location: [facility], [address] [place] [address], [id number], . -------- FINAL REPORT -------- Dictated By: Rafaela South Dictated Date: 05/18/2024 09:20 ET Assigned Physician: Rafaela South Reviewed and Electronically Signed By: Rafaela South Signed Date: 05/18/2024 09:47 ET Workstation ID: [id number] Transcribed By: Self Edit Transcribed Date: 05/18/2024 09:26 ET Narrative 05/18/2024 9:47 AM EST CLINICAL: 79 years old, Female, callback from screening for left breast asymmetry. COMPARISON: 05/15/2024, 05/10/2023, 05/05/2022, 04/29/2021 and 04/30/2020 ?? FINDINGS: MAMMOGRAPHY TECHNIQUE: Left CC and MLO spot compression view and 90 degree lateral view were obtained digitally with 3-D mammogram (digital breast tomosynthesis). Computer- aided detection was utilized in evaluation of this exam (CAD). Focal asymmetry in the left upper outer quadrant is less apparent on spot compression views. No architectural distortion or suspicious calcifications. BREAST DENSITY: B - There are scattered areas of fibroglandular density. ULTRASOUND TECHNIQUE: Targeted ultrasound evaluation of the left was performed. Targeted ultrasound of the left breast at 1-2 o'clock 7 cm from the nipple demonstrates a 9 mm simple appearing cyst. No suspicious abnormality. Procedure Note Rafaela South MD - 05/18/2024 CLINICAL: 79 years old, Female, callback from screening for left breastasymmetry. COMPARISON: 05/15/2024, 05/10/2023, 05/05/2022, 04/29/2021 and 04/30/2020 FINDINGS: MAMMOGRAPHY TECHNIQUE: Left CC and MLO spot compression view and 90 degree lateralview were obtained digitally with 3-D mammogram (digital breasttomosynthesis). Computer- aided detection was utilized in evaluation ofthis exam (CAD). Focal asymmetry in the left upper outer quadrant is less apparent on spotcompression views. No architectural distortion or suspiciouscalcifications. BREAST DENSITY: B - There are scattered areas of fibroglandular density. ULTRASOUND TECHNIQUE: Targeted ultrasound evaluation of the left was performed. Targeted ultrasound of the left breast at 1-2 o'clock 7 cm from the nippledemonstrates a 9 mm simple appearing cyst. No suspicious abnormality. IMPRESSION: Cyst in the left breast can be considered benign. BI-RADS CATEGORY: Mammography: 2 - BENIGN Ultrasound: 2 - BENIGN RECOMMENDATIONS: Screening bilateral mammogram is recommended in 1 year. Mammo Location: [facility], [address] [place] [address], [id number], . -------- FINAL REPORT -------- Dictated By: Rafaela South Dictated Date: 05/18/2024 09:20 ET Assigned Physician: Rafaela South Reviewed and Electronically Signed By: Rafaela South Signed Date: 05/18/2024 09:47 ET Workstation ID: [id number] Transcribed By: Self Edit Transcribed Date: 05/18/2024 09:26 ET Raman Newman MD IMG US PROCEDURES * MG Mammo Diagnostic Addl Views Left (05/18/2024 9:46 AM EST) Anatomical Region Laterality Modality Breast Left Mammography 05/18/2024 9:20 AM EST Impressions 05/18/2024 9:47 AM EST Cyst in the left breast can be considered benign. BI-RADS CATEGORY: Mammography: 2 - BENIGN Ultrasound: 2 - BENIGN RECOMMENDATIONS: Screening bilateral mammogram is recommended in 1 year. Mammo Location: [facility], [address] [place] [address], [id number], . -------- FINAL REPORT -------- Dictated By: Rafaela South Dictated Date: 05/18/2024 09:20 ET Assigned Physician: Rafaela South Reviewed and Electronically Signed By: Rafaela South Signed Date: 05/18/2024 09:47 ET Workstation ID: [id number] Transcribed By: Self Edit Transcribed Date: 05/18/2024 09:26 ET Narrative 05/18/2024 9:47 AM EST CLINICAL: 79 years old, Female, callback from screening for left breast asymmetry. COMPARISON: 05/15/2024, 05/10/2023, 05/05/2022, 04/29/2021 and 04/30/2020 ?? FINDINGS: MAMMOGRAPHY TECHNIQUE: Left CC and MLO spot compression view and 90 degree lateral view were obtained digitally with 3-D mammogram (digital breast tomosynthesis). Computer- aided detection was utilized in evaluation of this exam (CAD). Focal asymmetry in the left upper outer quadrant is less apparent on spot compression views. No architectural distortion or suspicious calcifications. BREAST DENSITY: B - There are scattered areas of fibroglandular density. ULTRASOUND TECHNIQUE: Targeted ultrasound evaluation of the left was performed. Targeted ultrasound of the left breast at 1-2 o'clock 7 cm from the nipple demonstrates a 9 mm simple appearing cyst. No suspicious abnormality. Procedure Note Rafaela South MD - 05/18/2024 CLINICAL: 79 years old, Female, callback from screening for left breastasymmetry. COMPARISON: 05/15/2024, 05/10/2023, 05/05/2022, 04/29/2021 and 04/30/2020 FINDINGS: MAMMOGRAPHY TECHNIQUE: Left CC and MLO spot compression view and 90 degree lateralview were obtained digitally with 3-D mammogram (digital breasttomosynthesis). Computer- aided detection was utilized in evaluation ofthis exam (CAD). Focal asymmetry in the left upper outer quadrant is less apparent on spotcompression views. No architectural distortion or suspiciouscalcifications. BREAST DENSITY: B - There are scattered areas of fibroglandular density. ULTRASOUND TECHNIQUE: Targeted ultrasound evaluation of the left was performed. Targeted ultrasound of the left breast at 1-2 o'clock 7 cm from the nippledemonstrates a 9 mm simple appearing cyst. No suspicious abnormality. IMPRESSION: Cyst in the left breast can be considered benign. BI-RADS CATEGORY: Mammography: 2 - BENIGN Ultrasound: 2 - BENIGN RECOMMENDATIONS: Screening bilateral mammogram is recommended in 1 year. Mammo Location: [facility], [address] [place] [address], [id number], . -------- FINAL REPORT -------- Dictated By: Rafaela South Dictated Date: 05/18/2024 09:20 ET Assigned Physician: Rafaela South Reviewed and Electronically Signed By: Rafaela South Signed Date: 05/18/2024 09:47 ET Workstation ID: [id number] Transcribed By: Self Edit Transcribed Date: 05/18/2024 09:26 ET Raman Newman MD IMG BI PROCEDURES * (ABNORMAL) MG Mammo Digital Screening w Dino bilat (05/15/2024 7:31 AM EST) Anatomical Region Laterality Modality Breast Bilateral Mammography 05/15/2024 10:4 1 AM EST Impressions 05/15/2024 10:51 AM EST Focal asymmetry in the left breast. Additional evaluation with left CC and MLO spot compression images and full 90 degree lateral are recommended. BI-RADS CATEGORY: 0 - INCOMPLETE - NEED ADDITIONAL IMAGING EVALUATION RECOMMENDATION: Additional left breast imaging recommended. Mammo Location: [facility], [address] [place] [address], [id number], . -------- FINAL REPORT -------- Dictated By: Rafaela South Dictated Date: 05/15/2024 10:41 ET Assigned Physician: Rafaela South Reviewed and Electronically Signed By: Rafaela South Signed Date: 05/15/2024 10:51 ET Workstation ID: [id number] Transcribed By: Self Edit Transcribed Date: 05/15/2024 10:41 ET Narrative 05/15/2024 10:51 AM EST CLINICAL: 79 years old, Female, routine annual exam. COMPARISON: 05/10/2023, 05/05/2022, 04/29/2021, 04/30/2020 and 04/24/2020 ?? TECHNIQUE: Bilateral MLO and CC views were obtained digitally with 3-D mammogram (digital breast tomosynthesis). Computer-aided detection was utilized in evaluation of this exam (CAD). FINDINGS: There is a focal asymmetry in the left upper outer breast at middle depth. There is no evidence of suspicious mass or architectural distortion in the right breast. ??No worrisome calcifications are evident. ?? BREAST DENSITY: B - There are scattered areas of fibroglandular density. Procedure Note Rafaela South MD - 05/15/2024 CLINICAL: 79 years old, Female, routine annual exam. COMPARISON: 05/10/2023, 05/05/2022, 04/29/2021, 04/30/2020 and 04/24/2020 TECHNIQUE: Bilateral MLO and CC views were obtained digitally with 3-Dmammogram (digital breast tomosynthesis). Computer-aided detection wasutilized in evaluation of this exam (CAD). FINDINGS: There is a focal asymmetry in the left upper outer breast at middle depth.There is no evidence of suspicious mass or architectural distortion in theright breast. No worrisome calcifications are evident. BREAST DENSITY: B - There are scattered areas of fibroglandular density. IMPRESSION: Focal asymmetry in the left breast. Additional evaluation with left CC andMLO spot compression images and full 90 degree lateral are recommended. BI-RADS CATEGORY: 0 - INCOMPLETE - NEED ADDITIONAL IMAGING EVALUATION RECOMMENDATION: Additional left breast imaging recommended. Mammo Location: [facility], [address] [place] [address], [id number], . -------- FINAL REPORT -------- Dictated By: Rafaela South Dictated Date: 05/15/2024 10:41 ET Assigned Physician: Rafaela South Reviewed and Electronically Signed By: Rafaela South Signed Date: 05/15/2024 10:51 ET Workstation ID: [id number] Transcribed By: Self Edit Transcribed Date: 05/15/2024 10:41 ET Self Referral Sppl IMG BI PROCEDURES from Last 3 Months Care Teams Biomedical Analytical Scientist Relationship Specialty Start Date End Date Po, MD Raman [address] [place] [address] [address] [facility] [place] [address] PCP - General Internal Medicine 05/15/24
== END 2024-07-20 12:38 | disposition home or self-care (01) ==
PROVIDERS: Emergency Provider Emergency Medicine Emergency Medical Services; PCP Internal Medicine
DX: Z48.02 Encounter for removal of sutures (principal)
CPT/HCPCS: 99282

== ENCOUNTER 2024-07-24 09:35 | Outpatient (AMB) | payer MEDICARE, SELFPAY ==
--- NOTE | 2024-07-24 10:34 | MHC.OFFVIS ---
Vital Signs 07/24/24 10:35 Height 5 ft 8 in Weight 170 lb BMI 25.8 Intake Visit Reasons: FC-RT distal radius fx - 07/13/24 Intake Note: Yvrose is a 79 year old left hand dominant female who presents today for a fracture care visit s/p trip and fall on 07/13/24. Patient reports that she tripped and fell on the sidewalk. She was seen at [facility] after the injury where she was placed in a sugar tong splint. Patient reports that she has mild pain, and thinks that she has a high tolerance of pain. Denies numbness or tingling. She is not taking anything for pain. Splint removed for XR - XR obtained at [facility] Allergies amlodipine [Norvasc] Allergy (Intermediate, Verified 07/20/24 12:22) hives (to the binder) Sulfa (Sulfonamide Antibiotics) Allergy (Intermediate, Verified 07/20/24 12:22) swelling of mouth HPI HPI FC-RT distal radius fx - 07/13/24: Details: Yvrose is a 79 year old left hand dominant female who presents today for a fracture care visit s/p trip and fall on 07/13/24. Patient reports that she tripped and fell on the sidewalk. She was seen at [facility] after the injury where she was placed in a sugar tong splint. Patient reports that she has mild pain, and thinks that she has a high tolerance of pain. Denies numbness or tingling. She is not taking anything for pain. Splint removed for XR - XR obtained at [facility] Medical History Breast asymmetry Osteopenia COVID-19 virus infection Left carotid artery stenosis Arthritis COVID-19 vaccine series completed Breast cancer screening by mammogram Tubular adenoma of colon Osteopenia Tubular adenoma of colon Allergic rhinitis Hypercholesterolemia Hypertension Surgical History H/O colonoscopy History of cataract surgery History of bilateral tubal ligation Family History Mother Cancer Uterine cancer Social History Household Members: None Housing: House Are you a primary day care home mother to a significant other at home: No Do you presently have visiting nurse or other home services: No Alcohol intake: former Comment: last one 2022 Patient Tobacco Use Status: Never used Tobacco e-Cigarette/Vaping Use: Never Used service: No Current occupational status: retired Sexual orientation: Straight/Heterosexual Gender identity: Female Cognitive needs: No Hearing needs: No Vision needs: Yes Female Reproductive History Menstrual Age of Menarche: 15 Review of Systems Const All systems reviewed & are unremarkable except as noted in HPI and below Physical Exam Vital Signs: BMI result Body Mass Index 25.8 Extrem Other: Patient is alert, oriented, and in no acute distress. Neuro: Normal sensation of the tips of all digits of the right hand at this time Vascular: Cap refill brisk Pain: No tenderness to palpation about the right wrist Patient does report some discomfort with range of motion of the digits of the right hand ROM: Patient was able to make a closed fist and extend all digits of the right hand fully, but reports some minor discomfort when doing so Skin: No lacerations or abrasions. General: Resolving ecchymosis No erythema, or evidence of infection. Psych: Appears grossly normal Affect normal Attitude cooperative Office Procedures AMB Fracture Care Fracture Billing Code: Fracture Billing Code Casting/Splints 03631-Lbad/Wrist Cast Application Procedure code (CPT) selection complete Results Reviewed Results Reviewed: X-rays obtained in the office today and independently reviewed by me, Kishore Robertson PA-C, demonstrate minimally displaced fracture of the right distal radius with a proximally 10 degrees of apex volar angulation, unchanged from previous x-rays. Assessment & Plan Assessment & Plan (1) Fracture of right distal radius: Code(s): S52.501A - Unspecified fracture of the lower end of right radius, initial encounter for closed fracture Category: Medical Plan 1. Right distal radius fracture Date of injury 07/13/2024 Patient is educated about this injury Patient is educated about the typical recovery course This time, patient was placed into a short arm cast, and has her fracture is in such an alignment that we can manage it conservatively Patient was amenable to this Patient was advised on proper cast care and options Patient will follow-up 2-3 weeks with repeat x-rays with cast off for reassessment, sooner with any acute concerns Orders: Orders XR wrist RT min 3V Today M25.531 - Pain in right wrist Coding Level of Care Code Est Pt Level 3 (06337) Diagnoses Fracture of right distal radius S52.501A CPT Codes Fracture Care - Fracture Billing Code: Fracture Billing Code ([id number]) Casting - CPT: 33964-Qmnx/Wrist Cast Application ([id number])
[2024-07-24 10:35] VITALS: BMI 25.8
--- OUTSIDE RECORDS SUMMARY | 2024-07-24 10:41 | XMS_ITS | Clinical Summary ---
Author Organization [facility] Address [address] [place] [address] Phone Care Team Providers Care Clinical Auditor Name Role Phone Raman Newman MD Primary Care Provider [phone] Encounters Date Type Department Care Team Description 05/18/2024 9:25 AM EST - 05/18/2024 11:59 PM EST Hospital Encounter [facility] Ultrasound [address] [place] [phone] Breast asymmetry Discharge Disposition: Home or Self Care 05/18/2024 9:01 AM EST - 05/18/2024 11:59 PM EST [facility] [address] [phone] Breast asymmetry Discharge Disposition: Home or Self Care 05/15/2024 6:53 AM EST - 05/15/2024 11:59 PM EST Hospital [facility]counter [facility] at [address] [phone] Encounter for screening mammogram for breast cancer Discharge Disposition: Home or Self Care from Last 3 Months Surgical History Surgery Date Site/Laterality Comments BREAST CYST ASPIRATION Social History Tobacco Use Types Packs/Day Years Used Date Smoking Tobacco: Never Assessed Comments No Sex and Gender Information Value Date Recorded Sex Assigned at Not on file Legal Sex Female 5:52 AM EST Gender Identity Not on file Sexual Orientation Not on file Obstetrics History Para Term [...] 05/16/2022 Social Influencers of Health Screening 05/16/2022 DTaP,Tdap,and Td Vaccines (2 - Td or Tdap) 06/30/2022 06/02/2022 COVID-19 Vaccine ( season) 2024 04/30/2023, 10/07/2021, 03/19/2021, Additional history exists Pneumococcal Vaccine: 50+ Years Completed 03/06/2019, 02/16/2017 Zoster Vaccines Completed [...] patient's age to complete this topic Meningococcal B Vacine Aged Out No lo nger eligible based on patient's age to complete [...] Routine 05/18/2024 9:46 AM EST Breast asymmetry MAMMO DIGITAL SCREENING W DINO BILAT Routine [...] year. Mammo Location: [facility], [address] [place] [address], [address], . -------- FINAL REPORT -------- Dictated By: Rafaela South Dictated Date: 05/18/2024 09:20 ET Assigned Physician: Rafaela South Reviewed and Electronically Signed By: Rafaela South Signed Date: 05/18/2024 09:47 ET Workstation ID: [id number] Transcribed By: Self Edit Transcribed Date: 05/18/2024 [...] year. Mammo Location: [facility], [address] [place] [address], [address], . -------- FINAL REPORT -------- Dictated By: Rafaela South Dictated Date: 05/18/2024 09:20 ET Assigned Physician: Rafaela South Reviewed and Electronically Signed By: Rafaela South Signed Date: 05/18/2024 09:47 ET Workstation ID: [id number] Transcribed By: Self Edit Transcribed Date: 05/18/2024 09:26 ET us Raman Newman MD IMG US PROCEDURES Final Result * MG Mammo Diagnostic Addl Views Left (05/18/2024 9:46 AM EST) Anatomical Region Laterality Modality Breast Left Mammography 05/18/2024 9:20 AM EST Impressions 05/18/2024 9:47 AM EST Cyst in the left breast can be considered benign. BI-RADS CATEGORY: Mammography: 2 - BENIGN Ultrasound: 2 - BENIGN RECOMMENDATIONS: Screening bilateral mammogram is recommended in 1 year. Mammo Location: [facility], [address] [place] [address], [address], . -------- FINAL REPORT -------- Dictated By: Rafaela South Dictated Date: 05/18/2024 09:20 ET Assigned Physician: Rafaela South Reviewed and Electronically Signed By: Rafaela South Signed Date: 05/18/2024 09:47 ET Workstation ID: [id number] Transcribed By: Self Edit Transcribed Date: 05/18/2024 [...] year. Mammo Location: [facility], [address] [place] [address], [address], . -------- FINAL REPORT -------- Dictated By: Rafaela South Dictated Date: 05/18/2024 09:20 ET Assigned Physician: Rafaela South Reviewed and Electronically Signed By: Rafaela South Signed Date: 05/18/2024 09:47 ET Workstation ID: [id number] Transcribed By: Self Edit Transcribed Date: 05/18/2024 09:26 ET Raman Newman MD IMG BI PROCEDURES Final Result * (ABNORMAL) MG Mammo Digital Screening w [...] recommended. Mammo Location: [facility], [address] [place] [address], [address], . -------- FINAL REPORT -------- Dictated By: Rafaela South Dictated Date: 05/15/2024 10:41 ET Assigned Physician: Rafaela South Reviewed and Electronically Signed By: Rafaela South Signed Date: 05/15/2024 10:51 ET Workstation ID: [id number] Transcribed By: Self Edit Transcribed Date: 05/15/2024 [...] recommended. Mammo Location: [facility], [address] [place] [address], [address], . -------- FINAL REPORT -------- Dictated By: Rafaela South Dictated Date: 05/15/2024 10:41 ET Assigned Physician: Rafaela South Reviewed and Electronically Signed By: Rafaela South Signed Date: 05/15/2024 10:51 ET Workstation ID: [id number] Transcribed By: Self Edit Transcribed Date: 05/15/2024 10:41 ET us Self Referral Sppl IMG BI PROCEDURES Final Resul t from Last 3 Months Insurance [employer] MED[employer]ARE ADVANTAGE Care Teams Clinical Auditor Relationship Specialty Start Date End Date Raman Newman MD [address] [place] [address] Dr [address] [facility] MARYLU Brian [address] PCP - General Internal Medicine 05/15/24
--- OUTSIDE RECORDS SUMMARY | 2024-07-24 10:41 | XMS_ITS | Patient Health Record ---
Author Organization [facility] Address [address] [place] [address] Care Team Providers Care Foreign Diplomat Name Role Phone Po Raman SANDOVAL Primary Care Provider David España [phone] ALLERGIES Allergen (clinical drug ingredient) Drug/Non Drug [...] malignant neoplasm of colon (Z12.11) Active confirmed 698693707 Problem Encounter for screening for malignant neoplasm of rectum (Z12.12) Active confirmed Screening fo r malignant neoplasm of rectum (680743010) Problem Hx of adenomatous colonic polyps (Z86.010) Active confirmed 003761105 Problem Long-term use of aspirin therapy (Z79.82) Active confirmed 398936235 Problem Preprocedural examination (Z01.818) Active confirmed 71861612 Problem History of adenomatous polyp of colon (Z86.010) Active confirmed 456471215 Problem History of colonic polyps (Z86.010) Active confirmed History of poly p of colon (470054930) Problem Diverticulosis of colon (K57.30) Active confirmed Diverticulosi s of colon (437291855) PLAN OF TREATMENT Future Test Test Name Order Date COLONOSCOPY 06/26/2015 COLONOSCOPY 07/14/2021 COLONOSCOPY 08/30/2021 Insurance Providers Payer Name Payer Address Payer Phone Subscriber Number Group Number Insured Name Patient Relationship to Insured Coverage Start Date Coverage End Date [facility] PROFESSIONAL CLAIMS [address] [place] [address] [id number] DONN GAMEZ Self - patient is the insured MEDICAL (GENERAL) HISTORY Medical History History ICD Code Hypertension Hyperlipidemia Denies MS,DM,CVA,Lung disease,renal dise ase Left carotid artery < [...]
== END 2024-07-24 11:11 | disposition home or self-care (01) ==
PROVIDERS: PCP Internal Medicine
DX: S52.501A Unspecified fracture of the lower end of right radius, initial encounter for closed fracture (principal)
CPT/HCPCS: 25600; 99213

== ENCOUNTER 2024-07-24 09:35 | Outpatient (REF) | payer MEDICARE, SELFPAY ==
--- NOTE | ~2024-07-24 | XR_ITS ---
CLINICAL HISTORY: M25.531 - Pain in right wrist 4 view right wrist Comparison: CR/RI/SR - XR HAND WRIST RT - 07/13/24 12:43 EST Findings: Unchanged linear lucency of the distal radial metaphysis. Fracture of the ulnar styloid. Degenerative change of the 1st carpometacarpal joint. No radiopaque foreign body. IMPRESSION: Acute nondisplaced fracture of the distal radial metaphysis with no evidence of interval healing. Fracture of the ulnar styloid. This document has been electronically signed by: Angélica Mckeon MD on 07/24/2024 15:54:39
== END 2024-07-24 09:36 | disposition home or self-care (01) ==
LOC: HO.XRAY 09:35
PROVIDERS: PCP Internal Medicine
DX: M25.531 Pain in right wrist (principal); S52.501A Unspecified fracture of the lower end of right radius, initial encounter for closed fracture
CPT/HCPCS: 25600; 73110; 99212

== ENCOUNTER → 2024-07-24 09:51 | Outpatient (BNV) | payer MEDICARE, SELFPAY | PROVIDERS: PCP Internal Medicine; Visit Provider Nuclear Medicine | DX: S52.501A Unspecified fracture of the lower end of right radius, initial encounter for closed fracture (principal); S52.611A Displaced fracture of right ulna styloid process, initial encounter for closed fracture | CPT/HCPCS: 73110 ==

== ENCOUNTER 2024-08-14 08:37 | Outpatient (REF) | payer MEDICARE, SELFPAY ==
--- NOTE | ~2024-08-14 | XR_ITS ---
CLINICAL HISTORY: M25.531 - Pain in right wrist 3 view right wrist Comparison: CR - XR WRIST RT MIN 3V - 07/24/24 10:15 EST Findings: Transverse fracture of the distal metaphysis of the radius with mild interval obscuration of the fracture line and increased density adjacent to portions of the fracture line, compatible with changes of healing. Avulsion fracture of the ulnar styloid without change. Chronic bone fragment adjacent to the trapezium without change. Mild arthritic change. No radiopaque foreign body. IMPRESSION: Subacute healing fracture of the distal radius. This document has been electronically signed by: Sarina Ibrahim MD on 08/15/2024 15:14:40
--- OUTSIDE RECORDS SUMMARY | 2024-08-14 09:13 | XMS_ITS | Patient Health Record ---
Author Organization [facility] Address [address] [place] [address] Care Team Providers Care Quill Skinner Name Role Phone Po Raman SANDOVAL Primary Care Provider David España [phone] ALLERGIES Allergen (clinical drug ingredient) Drug/Non Drug [...] malignant neoplasm of colon (Z12.11) Active confirmed 791265100 Problem History of adenomatous polyp of colon (Z86.010) Active confirmed 570643261 Problem Encounter for screening for malignant neoplasm of rectum (Z12.12) Active confirmed Screening fo r malignant neoplasm of rectum (650370663) Problem Preprocedural examination (Z01.818) Active confirmed 34930498 Problem Long-term use of aspirin therapy (Z79.82) Active confirmed 009950209 Problem Hx of adenomatous colonic polyps (Z86.010) Active confirmed 871069256 Problem History of colonic polyps (Z86.010) Active confirmed History of poly p of colon (134747028) Problem Diverticulosis of colon (K57.30) Active confirmed Diverticulosi s of colon (739403603) PLAN OF TREATMENT Future Test Test Name Order Date COLONOSCOPY 06/26/2015 COLONOSCOPY 07/14/2021 COLONOSCOPY 08/30/2021 Insurance Providers Payer Name Payer Address Payer Phone Subscriber Number Group Number Insured Name Patient Relationship to Insured Coverage Start Date Coverage End Date [facility] PROFESSIONAL CLAIMS [address] [place] [address] [id number] DONN GAMEZ Self - patient is the insured MEDICAL (GENERAL) HISTORY Medical History History ICD Code Hypertension Hyperlipidemia Denies [place],DM,CVA,Lung disease,renal dise ase Left carotid artery < [...]
--- OUTSIDE RECORDS SUMMARY | 2024-08-14 09:13 | XMS_ITS | Clinical Summary ---
Author Organization [facility] Address [address] [place] [address] Phone Care Team Providers Care Cost Accounting Analyst Name Role Phone Raman Newman MD Primary Care Provider [phone] Encounters Date Type Department Care Team Description 05/18/2024 9:25 AM EST - 05/18/2024 11:59 PM EST Hospital Encounter [facility] Ultrasound [address] [place] [phone] Breast asymmetry Discharge Disposition: Home or Self Care 05/18/2024 9:01 AM EST - 05/18/2024 11:59 PM EST [facility] at [address] [phone] Breast asymmetry Discharge Disposition: Home or Self Care from [...] Td or Tdap) 06/02/2032 06/02/2022 Pneumococcal Vaccine: 50+ Years Completed 03/06/2019, 02/16/2017 [...] Routine 05/18/2024 9:46 AM EST Breast asymmetry from Last 3 Months Results * US [...] year. Mammo Location: [facility], [address] [place] [address], [address], . -------- FINAL REPORT -------- Dictated By: Rafaela South Dictated Date: 05/18/2024 09:20 ET Assigned Physician: Rafaela South Reviewed and Electronically Signed By: Rafaela South Signed Date: 05/18/2024 09:47 ET Workstation ID: [id number] Transcribed By: Self Edit Transcribed Date: 05/18/2024 [...] year. Mammo Location: [facility], [address] [place] [address], [address], . -------- FINAL REPORT -------- Dictated By: Rafaela South Dictated Date: 05/18/2024 09:20 ET Assigned Physician: Rafaela South Reviewed and Electronically Signed By: Rafaela South Signed Date: 05/18/2024 09:47 ET Workstation ID: [id number] Transcribed By: Self Edit Transcribed Date: 05/18/2024 09:26 ET Raman Newman MD IMG US PROCEDURES Final [...] year. Mammo Location: [facility], [address] [place] [address], [address], . -------- FINAL REPORT -------- Dictated By: Rafaela South Dictated Date: 05/18/2024 09:20 ET Assigned Physician: Rafaela South Reviewed and Electronically Signed By: Rafaela South Signed Date: 05/18/2024 09:47 ET Workstation ID: [id number] Transcribed By: Self Edit Transcribed Date: 05/18/2024 [...] year. Mammo Location: [facility], [address] [place] [address], [address], . -------- FINAL REPORT -------- Dictated By: Rafaela South Dictated Date: 05/18/2024 09:20 ET Assigned Physician: Rafaela South Reviewed and Electronically Signed By: Rafaela South Signed Date: 05/18/2024 09:47 ET Workstation ID: [id number] Transcribed By: Self Edit Transcribed Date: 05/18/2024 09:26 ET Raman Newman MD IMG BI PROCEDURES Final Result from Last 3 Months Insurance [employer] MEDICARE ADVANTAGE Care Teams Cost Accounting Analyst Relationship Specialty Start Date End Date Raman Newman MD [address] [place] [address] [address] [facility] [place] [address] PCP - General Internal Medicine 05/15/24
== END 2024-08-14 08:38 | disposition home or self-care (01) ==
LOC: HO.HOSX 08:37
DX: M25.531 Pain in right wrist (principal); S52.501A Unspecified fracture of the lower end of right radius, initial encounter for closed fracture
CPT/HCPCS: 73110; 99212

== ENCOUNTER 2024-08-14 13:00 | Outpatient (AMB) | payer MEDICARE, SELFPAY ==
--- NOTE | 2024-08-14 13:10 | A.OFFVIS_ITS ---
Vital Signs 08/14/24 13:11 Height 5 ft 8 in Weight 170 lb BMI 25.8 Intake Visit Reasons: OV-RT distal radius fx - 07/13/24-w/xrays Intake Note: Yvrose is a 79 year old left hand dominant female who presents today for follow up of her right distal radius fracture s/p fall, DOI 07/13/24. Cast off and x- rays updated. Patient reports tingling sensation with cast being removed. No concerns today. Her only discomfort is in her thumb, states possibly from overuse. Allergies amlodipine [Norvasc] Allergy (Intermediate, Verified 08/14/24 13:33) hives (to the binder) Sulfa (Sulfonamide Antibiotics) Allergy (Intermediate, Verified 08/14/24 13:33) swelling of mouth HPI HPI OV-RT distal radius fx - 07/13/24-w/xrays: Details: Yvrose is a 79 year old left hand dominant female who presents today for follow up of her right distal radius fracture s/p fall, DOI 07/13/24. Cast off and x- rays updated. Patient reports tingling sensation with cast being removed. No concerns today. Her only discomfort is in her thumb, states possibly from overuse. Patient reports that she is feeling much better than at previous evaluation. No other acute complaints or concerns at this time. [facility] Medical History Breast asymmetry Osteopenia COVID-19 virus infection Left carotid artery stenosis Arthritis COVID-19 vaccine series completed Breast cancer screening by mammogram Tubular adenoma of colon Osteopenia Tubular adenoma of colon Allergic rhinitis Hypercholesterolemia Hypertension Surgical History H/O colonoscopy History of cataract surgery History of bilateral tubal ligation Family History Mother Cancer Uterine cancer Social History Household Members: None Housing: House Are you a primary home care companion to a significant other at home: No Do you presently have visiting nurse or other home services: No Alcohol intake: former Comment: last one 2022 Patient Tobacco Use Status: Never used Tobacco e-Cigarette/Vaping Use: Never Used service: No Current occupational status: retired Sexual orientation: Straight/Heterosexual Gender identity: Female Cognitive needs: No Hearing needs: No Vision needs: Yes Female Reproductive History Menstrual Age of Menarche: 15 Physical Exam Vital Signs: BMI result Body Mass Index 25.8 Extrem Other: Patient is alert, oriented, and in no acute distress. Neuro: Normal sensation of the tips of all digits of the right hand at this time Vascular: Cap refill brisk Pain: No tenderness to palpation about the right wrist No discomfort with range of motion of the digits of the right hand ROM: Patient was able to make a closed fist and extend all digits of the right hand fully Skin: No lacerations or abrasions. General: Resolving ecchymosis No erythema, or evidence of infection. Psych: Appears grossly normal Affect normal Attitude cooperative Results Reviewed Results Reviewed: X-rays obtained in the office today and independently reviewed by me, Kishore Robertson PA-C, demonstrate minimally displaced fracture of the right distal radius with a proximally 10 degrees of apex volar angulation, unchanged from previous x-rays and with evidence of interval bony healing. Assessment & Plan Assessment & Plan (1) Fracture of right distal radius: Code(s): S52.501A - Unspecified fracture of the lower end of right radius, initial encounter for closed fracture Category: Medical Plan 1. Right distal radius fracture Date of injury 07/13/2024 Patient is educated about this injury Patient is educated about the typical recovery course At this time, patient is removed from a cast and given a velcro wrist splint to wear with daytime activities Patient is advised to remove the splint while at rest to work on ROM of the R hand and wrist Patient is amenable to this plan F/u in 4 weeks, repeat XR, sooner with any acute concerns Orders: Orders XR wrist RT min 3V Today M25.531 - Pain in right wrist Coding Level of Care Code Global (47991) Diagnoses Fracture of right distal radius S52.501A
[2024-08-14 13:11] VITALS: BMI 25.8
--- OUTSIDE RECORDS SUMMARY | 2024-08-14 16:10 | XMS_ITS | Clinical Summary ---
Author Organization [facility] Address [address] [place] [address] Phone Care Team Providers Care Meter Reader Name Role Phone Raman Newman MD Primary Care Provider [phone] Encounters Date Type Department Care Team Description 05/18/2024 9:25 AM EST - 05/18/2024 11:59 PM EST Hospital Encounter [facility] Ultrasound [address] [place] [phone] Breast asymmetry Discharge Disposition: Home or Self Care 05/18/2024 9:01 AM EST - 05/18/2024 11:59 PM EST [facility] at [address] [phone] Breast asymmetry Discharge Disposition: Home or Self [...] Mammo Location: [facility], [address] [place] [address], [address], . -------- FINAL REPORT -------- Dictated By: Rafaela South Dictated Date: 05/18/2024 09:20 ET Assigned Physician: Rafaela South Reviewed and Electronically Signed By: Rafaela South Signed Date: 05/18/2024 09:47 ET Workstation ID: [id number] Transcribed By: Self Edit Transcribed Date: 05/18/2024 [...] Mammo Location: [facility], [address] [place] [address], [address], . -------- FINAL REPORT -------- Dictated By: Rafaela South Dictated Date: 05/18/2024 09:20 ET Assigned Physician: Rafaela South Reviewed and Electronically Signed By: Rafaela South Signed Date: 05/18/2024 09:47 ET Workstation ID: [id number] Transcribed By: Self Edit Transcribed Date: 05/18/2024 [...] Mammo Location: [facility], [address] [place] [address], [address], . -------- FINAL REPORT -------- Dictated By: Rafaela South Dictated Date: 05/18/2024 09:20 ET Assigned Physician: Rafaela South Reviewed and Electronically Signed By: Rafaela South Signed Date: 05/18/2024 09:47 ET Workstation ID: [id number] Transcribed By: Self Edit Transcribed Date: 05/18/2024 [...] Mammo Location: [facility], [address] [place] [address], [address], . -------- FINAL REPORT -------- Dictated By: Rafaela South Dictated Date: 05/18/2024 09:20 ET Assigned Physician: Rafaela South Reviewed and Electronically Signed By: Rafaela South Signed Date: 05/18/2024 09:47 ET Workstation ID: [id number] Transcribed By: Self Edit Transcribed Date: 05/18/2024 09:26 ET Raman Newman MD IMG BI PROCEDURES Final Result from Last 3 Months Insurance [employer] MEDICARE ADVANTAGE Care Teams Meter Reader Relationship Specialty Start Date End Date Raman Newman MD [address] [place] [address] Dr [address] [facility] [place] [address] PCP - General Internal Medicine 05/15/24
== END 2024-08-14 14:27 | disposition home or self-care (01) ==
PROVIDERS: PCP Internal Medicine
DX: S52.501A Unspecified fracture of the lower end of right radius, initial encounter for closed fracture (principal)
CPT/HCPCS: 99024

== ENCOUNTER → 2024-08-14 13:16 | Outpatient (BNV) | payer MEDICARE, SELFPAY | PROVIDERS: Visit Provider Radiology Diagnostic Radiology | DX: S52.591D Other fractures of lower end of right radius, subsequent encounter for closed fracture with routine healing (principal) | CPT/HCPCS: 73110 ==

== ENCOUNTER 2024-09-12 07:53 | Outpatient (REF) | payer MEDICARE, SELFPAY ==
--- NOTE | ~2024-09-12 | XR_ITS ---
EXAMINATION: XR WRIST, RIGHT CLINICAL INFORMATION: M25.531 - Pain in right wrist COMPARISON: 08/14/2024, 07/24/2024, 07/13/2024. TECHNIQUE: PA, lateral, and oblique views of the right wrist. FINDINGS: Redemonstration of distal radial fracture, remaining in stable anatomic alignment. Fracture lines are sclerotic and not well visualized, indicating healing. Nonunited ulnar styloid or old fracture. No additional fractures. No bone lesions. 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 Normal-appearing soft tissues. XR/XR wrist RT min 3V IMPRESSION: 1. Continued healing distal radial fracture in anatomic alignment. 2. Nonunited ulnar styloid fracture. Electronically signed by: Gm Gomez MD 09/12/2024 03:56 PM EDT
--- OUTSIDE RECORDS SUMMARY | 2024-09-12 07:57 | XMS_ITS | Patient Health Record ---
Author Organization [facility] Address [address] [place] [address] Care Team Providers Care Dag Coater Name Role Phone Po Raman SANDOVAL Primary Care Provider David España [phone] Allergies Allergen (clinical drug ingredient) Drug/Non Drug Allergy documented on EMR Reaction Allergy Type Onset Date Status Sulfa Unknown Drug Allergy Active Reason For Referral No Information Medications Medication SIG (Take, Route, Frequency, Duration) Notes Start Date End Date Status One-A-Day Womens Act marianne Calcium 600 600mg Ac tive Aspir-81 81mg Active ZyrTEC Allergy Activ e Lisinopril 20mg Acti ve Atorvastatin Calcium 10mg Active Glucosamine Chondr 500 Complex Active Immunizations Vaccine Route Administration Date Status Comme nts Influenza Unknown 02/11/2021 Administered Problems Problem Type SNOMED Code ICD Code Onset Dates Problem Status W/U Status Risk Notes Problem 358490140 Encounter for screening for malignant neoplasm of colon (Z12.11) Active confirmed Problem 573435302 History of adenomatous polyp of colon (Z86.010) Active confirmed Problem Screening for malignant neoplasm of rectum (224579047) Encounter for screening for malignant neoplasm of rectum (Z12.12) Active confirmed Problem 28632835 Preprocedural examination (Z01.818) Active confirmed Problem 372366884 Long-term use of aspirin therapy (Z79.82) Active confirmed Problem 687732346 Hx of adenomatou s colonic polyps (Z86.010) Active confirmed Problem History of polyp of colon (559425693) History of colonic polyps (Z86.010) Active confirmed Problem Diverticulosis of colon (285058661) Diverticulosis of colon (K57.30) Active confirmed Plan Of Treatment Future Test Test Name Order Date COLONOSCOPY 06/26/2015 COLONOSCOPY 07/14/2021 COLONOSCOPY 08/30/2021 Insurance Providers Payer Name Payer Address Payer Phone Subscriber Number Group Number Insured Name Patient Relationship to Insured Coverage Start Date Coverage End Date [facility] PROF[employer]AL CLAIMS [address] [place] [address] [id number] DONN GAMEZ Self - patient is the insured Medical (General) History Medical History History ICD Code Hypertension Hyperlipidemia Denies [place],DM,CVA,Lung disease,renal dise ase Left carotid artery < [...]
--- OUTSIDE RECORDS SUMMARY | 2024-09-12 07:57 | XMS_ITS | Clinical Summary ---
Author Organization [facility] Address [address] [place] [address] Phone Care Team Providers Care Collar Cutter Name Role Phone Raman Newman MD Primary Care Provider [phone] Surgical History Surgery Date Site/Laterality Comments BREAST [...] on patient's age to complete this topic Insurance [employer] MEDICARE ADVANTAGE Care Teams Collar Cutter Relationship Specialty Start Date End Date Raman Newman MD [address] [place] [address] [address] [facility] [place] [address] PCP - General Internal Medicine 05/15/24
== END 2024-09-12 07:54 | disposition home or self-care (01) ==
LOC: HO.HOSX 07:53
DX: M25.531 Pain in right wrist (principal); S52.501D Unspecified fracture of the lower end of right radius, subsequent encounter for closed fracture with routine healing
CPT/HCPCS: 73110; 99212

== ENCOUNTER 2024-09-12 07:57 | Outpatient (AMB) | payer MEDICARE, SELFPAY ==
--- NOTE | 2024-09-12 08:14 | A.OFFVIS_ITS ---
Vital Signs 09/12/24 08:18 Height 5 ft 8 in Weight 170 lb BMI 25.8 Handedness Left Intake Visit Reasons: OV-RT distal radius fx - 07/13/24-w/xrays Intake Note: Yvrose is a 79 year old left hand dominant female who presents today for follow up of her right distal radius fracture s/p fall, DOI 07/13/24. At her last visit her cast was removed and she was provided a velcro wrist splint to wear. She has been working on gentle ROM and expresses that she is doing well. Patient is stating that sometimes she gets discomfort in her thumb. Allergies amlodipine [Norvasc] Allergy (Intermediate, Verified 09/12/24 08:18) hives (to the binder) Sulfa (Sulfonamide Antibiotics) Allergy (Intermediate, Verified 09/12/24 08:18) swelling of mouth HPI HPI OV-RT distal radius fx - 07/13/24-w/xrays: Details: Yvrose is a 79 year old left hand dominant female who presents today for follow up of her right distal radius fracture s/p fall, DOI 07/13/24. At her last visit her cast was removed and she was provided a velcro wrist splint to wear. She has been working on gentle ROM and expresses that she is doing well. Patient is stating that sometimes she gets discomfort in her thumb. [facility] Medical History Breast asymmetry Osteopenia COVID-19 virus infection Left carotid artery stenosis Arthritis COVID-19 vaccine series completed Breast cancer screening by mammogram Tubular adenoma of colon Osteopenia Tubular adenoma of colon Allergic rhinitis Hypercholesterolemia Hypertension Surgical History H/O colonoscopy History of cataract surgery History of bilateral tubal ligation Family History Mother Cancer Uterine cancer Social History Household Members: None Housing: House Are you a primary career law clerk to a significant other at home: No Do you presently have visiting nurse or other home services: No Alcohol intake: former Comment: last one 2022 Patient Tobacco Use Status: Never used Tobacco e-Cigarette/Vaping Use: Never Used service: No Current occupational status: retired Sexual orientation: Straight/Heterosexual Gender identity: Female Cognitive needs: No Hearing needs: No Vision needs: Yes Female Reproductive History Menstrual Age of Menarche: 15 Review of Systems Const All systems reviewed & are unremarkable except as noted in HPI and below Physical Exam Vital Signs: BMI result Body Mass Index 25.8 Extrem Other: Patient is alert, oriented, and in no acute distress. Neuro: Normal sensation of the tips of all digits of the right hand at this time Vascular: Cap refill brisk Pain: No tenderness to palpation about the right wrist No discomfort with range of motion of the digits of the right hand ROM: Patient was able to make a closed fist and extend all digits of the right hand fully Patient is able to flex the right wrist to approximately 60 degrees and extend the right wrist to approximately 60 degrees without difficulty Able to pronate and supinate to 90 degrees without difficulty Skin: No lacerations or abrasions. General: No ecchymosis No erythema, or evidence of infection. Psych: Appears grossly normal Affect normal Attitude cooperative Results Reviewed Results Reviewed: X-rays obtained in the office today and independently reviewed by me, Kishore Robertson PA-C, demonstrate minimally displaced fracture of the right distal radius with a proximally 10 degrees of apex volar angulation, unchanged from previous x-rays and with evidence of interval bony healing. Assessment & Plan Assessment & Plan (1) Fracture of right distal radius: Code(s): S52.501A - Unspecified fracture of the lower end of right radius, initial encounter for closed fracture Category: Medical Plan 1. Right distal radius fracture Date of injury 07/13/2024 Patient is educated about this injury Patient is educated about the typical recovery course At this time, patient is advised that she should only wear the Velcro wrist splint with high-risk activities for the next 2-3 weeks Patient is advised to remove the splint while at rest to work on ROM of the R hand and wrist Patient was advised to increase her weightlifting capacity to 5-10 lb over the next 2 weeks, 15 lb over the 2 weeks following, and may gradually return to normal activity after that Patient is amenable to this plan F/u as needed with any acute concerns Orders: Orders XR wrist RT min 3V Today M25.531 - Pain in right wrist Coding Level of Care Code Global (68580) Diagnoses Fracture of right distal radius S52.501D
[2024-09-12 08:18] VITALS: BMI 25.8
== END 2024-09-12 08:28 | disposition home or self-care (01) ==
LOC: HO.HOS 07:57
PROVIDERS: PCP Internal Medicine
DX: S52.501A Unspecified fracture of the lower end of right radius, initial encounter for closed fracture (principal)
CPT/HCPCS: 99024

== ENCOUNTER → 2024-09-12 08:00 | Outpatient (BNV) | payer MEDICARE, SELFPAY | PROVIDERS: Visit Provider Radiology Diagnostic Radiology | DX: S52.501D Unspecified fracture of the lower end of right radius, subsequent encounter for closed fracture with routine healing (principal); S52.611K Displaced fracture of right ulna styloid process, subsequent encounter for closed fracture with nonunion | CPT/HCPCS: 73110 ==

== ENCOUNTER 2024-10-18 06:48 | Outpatient (REF) | payer MEDICARE, SELFPAY ==
--- OUTSIDE RECORDS SUMMARY | 2024-10-18 06:51 | XMS_ITS | Clinical Summary ---
Author Organization [facility] Address [address] [place] [address] Phone Care Team Providers Care Garnishment Specialist Name Role Phone Raman Newman MD Primary Care Provider [phone] Surgical History Surgery Date Site/Laterality Comments BREAST [...] Due Date Last Done Comments RSV Immunization Adult Patients (1 - 1-dose 75+ series) 2022 Depression [...] age to complete this topic Meningococcal B Vaccine Aged Out No l onger eligible based on patient's age to complete this topic RSV Immunization Patients Under 20 months Aged Out No longer eligible based on patient's age to complete this topic Varicella Vaccines Aged Out No longer eligible based on patient's age to complete this topic Insurance [employer] MEDICARE ADVANTAGE Care Teams Garnishment Specialist Relationship Specialty Start Date End Date Raman Newman MD [address] [place] [address] [address] [facility] [place] [address] PCP - General Internal Medicine 05/15/24
--- OUTSIDE RECORDS SUMMARY | 2024-10-18 06:51 | XMS_ITS | Patient Health Record ---
Author Organization [facility] Address [address] [place] [address] Care Team Providers Care Court Security Officer Name Role Phone Po Raman SANDOVAL Primary Care Provider David España [phone] Allergies Allergen (clinical drug ingredient) Drug/Non Drug [...] Problem Status W/U Status Risk Notes Problem 691687351 Encounter for screening for malignant neoplasm of colon (Z12.11) Active confirmed Problem 570872467 History of adenomatous polyp of colon (Z86.010) Active confirmed Problem Screening for malignant neoplasm of rectum (955129568) Encounter for screening for malignant neoplasm of rectum (Z12.12) Active confirmed Problem 12999009 Preprocedural examination (Z01.818) Active confirmed Problem 602294169 Long-term use of aspirin therapy (Z79.82) Active confirmed Problem 093228613 Hx of adenomatou s colonic polyps (Z86.010) Active confirmed Problem History of colonic polyps (Z86.010) Active confirmed Problem Diverticulosis of colon (059461237) Diverticulosis of colon (K57.30) Active confirmed Plan Of Treatment Future Test Test Name Order Date COLONOSCOPY 06/26/2015 COLONOSCOPY 07/14/2021 COLONOSCOPY 08/30/2021 Insurance Providers Payer Name Payer Address Payer Phone Subscriber Number Group Number Insured Name Patient Relationship to Insured Coverage Start Date Coverage End Date [facility] [place] [employer] [place] [address] [place] [address] [id number] DONN GAMEZ Self - patient is the insured Medical (General) History Medical History History ICD Code Hypertension Hyperlipidemia Denies [place],DM,CVA,Lung disease,renal dise ase Left carotid artery < [...]
[2024-10-18 06:58] LABS: MANUAL DIFF FLAG NO
[2024-10-18 07:23] LABS: Basophils Absolute Auto 0.1 X10*3/uL (0.0-0.2); Eosinophils Absolute Auto 0.3 X10*3/uL (0.0-0.4); Eosinophils Percent Auto 4.7 % (0-4); Hematocrit 38.3 % (37.0-47.0); Hemoglobin 12.7 g/dl (12.0-16.0); Imm Gran Abs Auto 0.01 X10*3/uL (0.00-0.03); Imm Gran Pct Auto 0.2 % (0.0-0.4); Lymphocytes Absolute Auto 1.8 X10*3/uL (1.2-4.9); Lymphocytes Percent Auto 30.8 % (20-40); Mean Corpuscular HGB Conc 33.2 g/dl (31.0-35.0); Mean Corpuscular Hemoglobin 31.2 pg (27.0-33.0); Mean Corpuscular Volume 94.1 fL (80.0-98.0); Mean Platelet Volume 9.6 fL (9.4-12.3); Monocytes Absolute Auto 0.5 X10*3/uL (0.1-1.2); Monocytes Percent Auto 9.4 % (2-11); Neutrophils Absolute Auto 3.1 x10*3/uL (2.0-8.3); Neutrophils Percent Auto 53.9 % (45-73); Platelet Count 267 X10*3/uL (160-400); Red Blood Count 4.07 X10*6/uL (4.20-5.50); Red Cell Distribution Width 13.2 % (11.0-16.0); White Blood Count 5.7 X10*3/uL (4.8-10.8)
[2024-10-18 07:31] LABS: Estimated Average Glucose 117 mg/dL; Hemoglobin A1C 125.6194 umol/L; Hemoglobin A1c % 5.7 % (<6.0); Total Hemoglobin (HGBA1C) 3277.2289 umol/L
[2024-10-18 07:53] LABS: Alanine Aminotransferase 22 U/L (0-31); Albumin Level 4.3 g/dL (3.5-5.0); Alkaline Phosphatase 56 U/L (39-117); Anion Gap 12 (12-20); Aspartate Amino Transferase 24 U/L (5-31); Bilirubin Total 0.7 mg/dL (0.0-1.0); Blood Urea Nitrogen 14 mg/dL (9-16); Calcium 9.9 mg/dL (8.4-10.2); Carbon Dioxide 29 mmol/L (22-29); Chloride 103 mmol/L (96-108); Cholesterol 188 mg/dL (<200); Estimated Glomerular Filt Rate > 60; Glucose Random 101 mg/dL (60-115); HDL Cholesterol 46 mg/dL (>40); LDL Cholesterol Calculated 122 mg/dL (<100); Potassium 4.2 mmol/L (3.3-5.1); Sodium 140 mmol/L (135-145); Total Protein 7.3 g/dL (6.5-8.0); Triglycerides 100 mg/dL (<150)
[2024-10-18 08:11] LABS: Free T4 (Free Thyroxine) 1.04 ng/dL (0.71-1.85); TSH reflex Free T4 1.37 uIU/mL (0.32-4.0); Vitamin D 25-OH Total 70.1 ng/mL (>30)
[2024-10-18 08:21] LABS: Vitamin B12 940 pg/mL (200-900)
== END 2024-10-18 06:49 | disposition home or self-care (01) ==
LOC: HO.LAB 06:48
PROVIDERS: PCP Internal Medicine
DX: Z00.00 Encounter for general adult medical examination without abnormal findings (principal); R73.02 Impaired glucose tolerance (oral); E78.00 Pure hypercholesterolemia, unspecified
CPT/HCPCS: 36415; 80053; 80061; 82306; 82607; 82746; 83036; 84439; 84443; 85025

== ENCOUNTER 2024-10-24 07:30 | Outpatient (AMB) | payer MEDICARE, SELFPAY ==
--- NOTE | 2024-10-24 07:59 | MHC.PC.OV ---
Vital Signs 10/24/24 08:00 Height 5 ft 8 in Weight 171 lb 8 oz BMI 26.1 BP 132/66 Blood Pressure Location Lt brachial Position Sitting Pulse 80 Pulse Source Pulse Oximeter Temp 97.1 F Temp Source Temporal Artery Scan Pulse Oximetry (%) 98 Oxygen Delivery Method Room Air Intake Visit Reasons: Annual Exam Intake Note: Patient is here today for a physical. Tax Associate Attorney Required: No Drug Safety Scientist: Not Required per policy Accompanied by: Self / Same As Patient Allergies amlodipine [Norvasc] Allergy (Intermediate, Verified 10/24/24 08:18) hives (to the binder) Sulfa (Sulfonamide Antibiotics) Allergy (Intermediate, Verified 10/24/24 08:18) swelling of mouth Medication List - Last Reconciled 10/24/24 by Laura Garcia PA-C aspirin 81 mg PO DAILY atorvastatin 10 mg PO DAILY calcium carbonate-vitamin D3 600 mg-12.5 mcg (500 unit) (Calcium with Vit D3) 1 cap PO BID cetirizine (Zyrtec) 10 mg PO DAILY PRN glucos sul [id number] 550-30-1 mg (Glucosamine Chondroitin) 1 cap PO DAILY lisinopril 30 mg PO DAILY multivitamin 1 tab PO DAILY Tobacco use date assessed: 10/24/24 Fall risk assessment: 1 Fall in past year Last assessed Fall Risk: 10/24/24 Dental Screening Dental Screen Date: 10/24/24 Did you have a dental visit in the last 12 months?: Yes Did you have a dental problem in the last 6 months where you did not have access to dental care?: No Was dental information given to patient?: Patient has dentist HPI Annual Exam HPI Details 79-year-old female with a history of hypertension, hypercholesterolemia, history of nondisplaced fracture of the humerus, and impaired glucose tolerance last seen 04/2024 coming in for annual exam. In review of the notes patient was seen in [facility] 06/2024 after a mechanical fall sustaining a facial laceration and right distal radius fracture. Patient was following with ortho for management of fracture last seen 09/2024 advised to use the velcro wrist splint for high-risk activities and work on ROM exercises advised to follow up prn.? Presenting for a wellness visit and chronic condition management. Following a fall in June, the patient sustained a wrist fracture and has since been managing residual issues, utilizing a brace for protection and reporting limited wrist functionality. The patient reports experiencing worsening allergic symptoms, particularly exacerbated by the current pollen season. Currently, there are no new allergies or medication changes. Additionally, hyperlipidemia is being managed through lifestyle modifications with noted stability in triglycerides and HDL cholesterol. mammogram: 05/2024 repeat in 1 year colonoscopy: 2021 advised no longer needed DEXA: 2 years ago and will be due this year - she will call to book vaccines: UTD advanced directives: HCP completed and patient provided with MOLST form today [facility] Medical History Dermatitis, unspecified Nondisplaced fracture of greater tuberosity of humerus Breast asymmetry Osteopenia COVID-19 virus infection Left carotid artery stenosis Arthritis COVID-19 vaccine series completed Breast cancer screening by mammogram Tubular adenoma of colon Osteopenia Tubular adenoma of colon Allergic rhinitis Hypercholesterolemia Hypertension Surgical History H/O colonoscopy History of cataract surgery History of bilateral tubal ligation Family History Mother Cancer Uterine cancer Social History Household Members: None Housing: House Are you a primary early breastfeeding care specialist to a significant other at home: No Do you presently have visiting nurse or other home services: No Alcohol intake: former Comment: last one 2022 Patient Tobacco Use Status: Never used Tobacco e-Cigarette/Vaping Use: Never Used Second Hand Smoke Exposure: No service: No Current occupational status: retired Sexual orientation: Straight/Heterosexual Gender identity: Female Cognitive needs: No Hearing needs: No Vision needs: Yes Female Reproductive History Menstrual Age of Menarche: 15 Questionnaire PHQ-9 Over the last 2 weeks, how often have you been bothered by any of the following problems? 1. Little interest or pleasure in doing things: not at all 2. Feeling down, depressed, or hopeless: not at all 3. Trouble falling or staying asleep, or sleeping too much: not at all 4. Feeling tired or having little energy: several days 5. Poor appetite or overeating: several days 6. Feeling bad about yourself - or that you are a failure or have let yourself or your family down: not at all 7. Trouble concentrating on things, such as reading the newspaper or watching television: not at all 8. Moving or speaking so slowly that other people could have noticed. Or the opposite - being so fidgety or restless that you have been moving around a lot more than usual: not at all 9. Thoughts that you would be better off or of hurting yourself in some way: not at all Total score: 2 Depression Screening Interpretation: Negative Depression Screening Done: Yes Source: Developed by Drs. David Chaudhari, Lindy Pulido, Byron Lomas and colleagues, with an educational sophia from [employer]. Thrive Questionnaire Date Thrive assessed: 10/24/24 I am a: Patient What is your living situation today?: I have a steady place to live Within the past 12 months, did the food you bought not last and you didn't have the money to get more?: Never true Within the past 12 months, did you worry whether your food would run out before you got money to buy more?: Never true Do you have trouble paying for medicines?: No Do you have trouble getting transportation to medical appointments?: No Do you have trouble paying your heating and electricity bill?: No Do you have trouble taking care of your child, family member or friend?: No Do you have trouble with day-to-day activities such as bathing, preparing meals, shopping, managing finances, etc.?: No Are you currently unemployed and looking for a job?: No Are you interested in more education?: No Please select the resources that you would like help with: None Currently or been in a relationship where the following occur: I choose not to answer THRIVE Score: 0 AUDIT C Alcohol Use Questionnaire (AUDIT-C) 1. How often do you have a drink containing alcohol?: Never Total Score: 0 REG-7 AMB Questionnaire REG-7 Date REG - 7 assessed: 10/24/24 Feeling nervous, anxious, or on edge: 0 = Not at all Not being able to stop or control worryin = Not at all Worrying too much about different things: 0 = Not at all Trouble relaxin = Not at all Being so restless that it is hard to sit still: 0 = Not at all Becoming easily annoyed or irritable: 0 = Not at all Feeling afraid as if something awful might happen: 0 = Not at all Total REG-7 score (0-4 normal; 5-9 mild; 10-14 moderate; 15-21 severe): 0 Source: Developed by Drs. David Chaudhari, Lindy Pulido, Byron Lomas and colleagues, with an educational sophia from [employer]. REG-7 Assessment Billing REG-7 Assessment Tool: ERG-7 Assessment 98918 Review of Systems Const Denies body aches, Denies chills, Denies fever(s), Denies headache(s) and Denies poor appetite Eyes Reports no additional complaints ENT Denies dysphagia, Denies dizziness, Denies headache(s) and Denies odynophagia Card Denies chest pain, Denies syncope, Denies edema, Denies irregular heart rhythm, Denies lightheadedness and Denies dyspnea Resp Denies cough and Denies dyspnea GI Denies abdominal pain, Denies constipation, Denies dysphagia, Reports dyspepsia (infrequently ), Denies heartburn, Denies diarrhea, Denies nausea, Denies odynophagia and Denies vomiting Denies dysuria, Denies urinary hesitancy, Denies urinary urgency and Denies vaginal discharge Musc Reports no additional complaints and Denies abnormal gait Skin/Breast Reports system reviewed and no additional complaints, except as documented Neuro Denies abnormal gait, Denies dizziness, Denies syncope and Denies headache(s) Psych Reports no additional complaints Physical exam (Primary Care) Vital Signs: Last Vital Signs Temp 97.1 F 10/24/24 08:00 Pulse 80 10/24/24 08:00 BP 132/66 10/24/24 08:00 Pulse Ox 98 10/24/24 08:00 Oxygen Delivery Method Room Air 10/24/24 08:00 BMI result Body Mass Index 26.1 Tobacco/Smoking Status: Tobacco use Status Tobacco use date assessed 10/24/24 10/24/24 08:05 Patient Tobacco Use Status Never used Tobacco 10/24/24 08:05 e-Cigarette/Vaping Use Never Used 10/24/24 08:05 PHQ-9: PHQ-9 Score PHQ-9: Total score 2 10/24/24 08:12 Depression Screening Interpretation: Negative Thrive Assessment: Date of Thrive Assessment Date Thrive assessed 10/24/24 10/24/24 08:05 Currently or been in a relationship where the following occur: I choose not to answer Advance Care Planning discussion: Completed/Scanned Date of discussion: 10/24/24 Who was present: patient Forms completed: MOLST Time spent: 1-15 minutes, not on file Actual minutes spent: 4 Const General: cooperative, healthy appearing, comfortable and no acute distress Orientation/consciousness: patient oriented x3 HENMT Head: Yes normocephalic Ears: hearing grossly normal bilaterally General nose exam: Normal external nose present Face and sinus: Yes normal facial exam and Yes sinuses nontender Mouth: Normal oral and palatal mucosa present and tongue normal Throat: Yes posterior oropharynx normal Eyes General: appearance normal, both eyes and all related structures Conjunctivae: conjunctivae normal Pupils: Equal, round and reactive pupils present EOM: EOMs intact bilaterally and No Nystagmus present Neck Neck: Yes full ROM and Yes no lymphadenopathy Chest Chest palpation & inspection: normal inspection of the chest Resp Effort & Inspection: normal respiratory effort Auscultation: clear to auscultation bilaterally, no crackles, no rales, no rhonchi and no wheezes Cardio Rate: regular rate Rhythm: regular rhythm Peripheral pulses: radial pulses present and dorsalis pedis present GI Inspection: Yes normal to inspection and No Abdominal wall edema Palpation (GI): Soft to palpation, not firm and nontender Auscultation: normal bowel sounds Rectal Exam - Female: deferred General: Yes no CVA tenderness Back/Spine/Pelvis Back: no CVA tenderness Skin General skin exam: no rashes or lesions noted Neuro General: patient oriented x3 Cranial nerves: Yes Equal, round and reactive pupils present, Yes Midline tongue present, Yes Ability to bilaterally elevate shoulders present and No Nystagmus present Gait exam (Neuro): Normal gait present Extrem General: Yes normal to inspection, Yes full ROM and No edema Psych Speech and movement: Normal speech and movement present Affect: normal affect Attitude: cooperative Insight: Good insight present (Psych) Judgement: Good judgement present (Psych) Coding Level of Care Code Est Pt Prev Care >65y(47376) Diagnoses Annual physical exam Z00.00 Primary hypertension I10 Hypertension type: primary hypertension Hypercholesterolemia E78.00 Impaired glucose tolerance R73.02 Breast asymmetry N64.89 Fracture of right distal radius S52.501A Additional Codes REG-7 Assessment Billing - REG-7 Assessment Tool: REG-7 Assessment 27856 ([id number]) Vital Signs *Quality* - Advance Care Planning discussion: Completed/Scanned ([id number]) Vital Signs *Quality* - Time spent: 1-15 minutes, not on file ([id number]) Assessment & Plan Assessment & Plan (1) Annual physical exam: Code(s): Z00.00 - Encounter for general adult medical examination without abnormal findings Category: Medical Plan: Patient is up-to-date on all recommended routine screenings and vaccinations for her age. She is due for bone density scan and she will schedule this herself. Blood work is up-to-date and has been reviewed with the patient today. Healthcare proxy form is completed and is on file, MOLST form has not yet been completed was discussed with the patient today patient was provided with a form and she will bring the form back once completed. Plan to follow up in 6 months or sooner as needed. (2) Hypertension: Code(s): I10 - Essential (primary) hypertension Category: Medical Qualifiers: Hypertension type: primary hypertension Qualified Code(s): I10 - Essential (primary) hypertension Plan: Continue on current blood pressure medication. Avoid salt intake and encourage healthy diet and regular exercise. Blood pressure at goal today 132/66. Continue on lisinopril 30 mg (3) Hypercholesterolemia: Code(s): E78.00 - Pure hypercholesterolemia, unspecified Category: Medical Plan: Avoid foods that are high in cholesterol such as red meat, fried foods, eggs and baked goods. Triglyceride goal of less than 150 and LDL goal of less than 130. Continue on atorvastatin 10. Cholesterol mildly elevated on last blood work LDL 122 plan to repeat cholesterol in 6 months with a appointment at that time. (4) Impaired glucose tolerance: Code(s): R73.02 - Impaired glucose tolerance (oral) Category: Medical Plan: Decrease the amount of carbohydrates such as pasta, bread, rice, and potatoes and limit the amount of sweets. Although fruits are generally healthy they should be eaten in moderation as they are still high in sugar. (5) Breast asymmetry: Comment: May 2024 mammogram done in [facility] showing focal asymmetry in the left breast additional evaluation left CC and MLO spot compression images and full 90 degree lateral are recommended. Code(s): N64.89 - Other specified disorders of breast Category: Medical Plan: Patient had targeted ultrasound completed 05/2024, negative, advised to follow up yearly. (6) Fracture of right distal radius: Code(s): S52.501A - Unspecified fracture of the lower end of right radius, initial encounter for closed fracture Category: Medical Plan: Patient has been managing her distal radius fracture and was recently discharged from orthopedics. She continues with her daily activities and uses the wrist splint for strenuous activities. Denies any pain or weakness at this time. Plan The patient will continue lifestyle modifications to manage LDL cholesterol, aiming for lower saturated fat intake while increasing green leafy vegetables to support iron levels. Allergy symptoms will be managed conservatively in alignment with seasonal flare-ups. Regular follow-ups will ensure monitoring any progression in cholesterol levels, while screening procedures for breast and colon health will adhere to current schedules barring any new symptoms. A Bone Mineral Density test is planned for this year to assess bone health. A six-month clinical follow-up is scheduled to evaluate health status and adjust management strategies if cholesterol displays significant change. This note was constructed using voice recognition software. While every effort has been made to ensure accuracy and human services supervisor, still areas may have been included sometimes these areas may affect the content or meeting of the given symptoms. Total time spent caring for the patient today was 30 minutes. This includes time spent before the visit reviewing the chart, time spent during the visit, and time spent after the visit and documentation. Patient was informed and verbally consented to the use of an ambient scribe for clinic note documentation during this visit. Orders: Orders Lipid Panel 6 Months E78.00 - Pure hypercholesterolemia, unspecified
[2024-10-24 08:00] VITALS: BP 132/66; PULSE 80; TEMP 36.2; O2SAT 98; BMI 26.1
== END 2024-10-24 08:40 | disposition home or self-care (01) ==
LOC: HO.HMCH 07:31
PROVIDERS: PCP Internal Medicine
DX: Z00.00 Encounter for general adult medical examination without abnormal findings (principal); I10 Essential (primary) hypertension; E78.00 Pure hypercholesterolemia, unspecified; R73.02 Impaired glucose tolerance (oral); N64.89 Other specified disorders of breast; S52.501A Unspecified fracture of the lower end of right radius, initial encounter for closed fracture

== ENCOUNTER → 2024-10-24 07:30 | Outpatient (BNVA) | payer MEDICARE, SELFPAY | PROVIDERS: PCP Internal Medicine | DX: Z00.00 Encounter for general adult medical examination without abnormal findings (principal); I10 Essential (primary) hypertension; E78.00 Pure hypercholesterolemia, unspecified; R73.02 Impaired glucose tolerance (oral); N64.89 Other specified disorders of breast; Z91.81 History of falling; Z87.81 Personal history of (healed) traumatic fracture | CPT/HCPCS: 96127; 99397 ==

== ENCOUNTER 2025-01-15 08:00 | Outpatient (AMB) | payer MEDICARE, SELFPAY ==
--- OUTSIDE RECORDS SUMMARY | 2025-01-15 08:02 | XMS_ITS | Patient Health Record ---
Author Organization [facility] Address [address] [place] [address] Care Team Providers Care Security Intern Name Role Phone Po Raman SANDOVAL Primary Care Provider David España [phone] Allergies Allergen (clinical drug ingredient) Drug/Non Drug [...] Problem Status W/U Status Risk Notes Problem 979260859 Encounter for screening for malignant neoplasm of colon (Z12.11) Active confirmed Problem 034078593 History of adenomatous polyp of colon (Z86.010) Active confirmed Problem Screening for malignant neoplasm of rectum (787648342) Encounter for screening for malignant neoplasm of rectum (Z12.12) Active confirmed Problem 37550190 Preprocedural examination (Z01.818) Active confirmed Problem 354169651 Long-term use of aspirin therapy (Z79.82) Active confirmed Problem 934688962 Hx of adenomatou s colonic polyps (Z86.010) Active confirmed Problem History of colonic polyps (Z86.010) Active confirmed Problem Diverticulosis of colon (118104973) Diverticulosis of colon (K57.30) Active confirmed Plan Of Treatment Future Test Test Name Order Date COLONOSCOPY 06/26/2015 COLONOSCOPY 07/14/2021 COLONOSCOPY 08/30/2021 Insurance Providers Payer Name Payer Address Payer Phone Subscriber Number Group Number Insured Name Patient Relationship to Insured Coverage Start Date Coverage End Date [facility] [employer] CLAIMS [address] [place] [address] [id number] DONN GAMEZ Self - patient is [...]
--- OUTSIDE RECORDS SUMMARY | 2025-01-15 08:02 | XMS_ITS | Clinical Summary ---
Author Organization [facility] Address [address] [place] [address] Phone Care Team Providers Care Call Center Manager Name Role Phone Raman Newman MD Primary Care Provider [phone] Surgical History Surgery Date Site/Laterality Comments BREAST [...] Patients (1 - 1-dose 75+ series) 2022 Falls Risk Assessment 05/16/2022 Hepatitis C Screening 05/16/2022 Medicare Annual Wellness Visit 05/16/2022 Osteoporosis Screening (Bone Density Screening) 05/16/2022 Social Influencers of Health Screening 05/16/2022 COVID-19 Vaccine ( season) 2024 04/30/2023, 10/07/2021, 03/19/2021, Additional history exists Depression Screening 06/13/2024 Influenza Vaccine (#1) 2025 , 02/17/2023, 04/06/2022, Additional history exists DTaP,Tdap,and Td Vaccines (2 - Td or Tdap) 06/02/2032 06/02/2022 Pneumococcal Vaccine: 50+ Years Completed 03/06/2019, 02/16/2017 Zoster Vaccines Completed 09/26/2019, 07/13/2019 HIB Vaccines Aged Out No longer eligi [...] topic Insurance [employer] MED[employer]ARE [employer]VANTAGE Care Teams Call Center Manager Relationship Specialty Start Date End Date Raman Newman MD [address] [place] [address] [address] [facility] [place] [address] PCP - General Internal Medicine 05/15/24
--- NOTE | 2025-01-15 08:11 | A.OFFVIS_ITS ---
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 No complaints. Last Pap was negative in 2013, the patient was adequately screened for 10 years prior to the age of 65 with negative Pap Last Mammogram was BI-RADS 1 in 06/05 Last Colonoscopy was in 09/01 Last DEXA scan was in 04/04 [facility] Medical History Dermatitis, unspecified Nondisplaced fracture of greater tuberosity of humerus Breast asymmetry Osteopenia COVID-19 virus infection Left carotid artery stenosis Arthritis COVID-19 vaccine series completed Breast cancer screening by mammogram Tubular adenoma of colon Osteopenia Tubular adenoma of colon Allergic rhinitis Hypercholesterolemia Hypertension Surgical History H/O colonoscopy History of cataract surgery History of bilateral tubal ligation Family History Mother Cancer Uterine cancer Social History Household Members: None Housing: House Are you a primary childcare center director to a significant other at home: No Do you presently have visiting nurse or other home services: No Alcohol intake: former Comment: last one 2022 Patient Tobacco Use Status: Never used Tobacco e-Cigarette/Vaping Use: Never Used Second Hand Smoke Exposure: No service: No Current occupational status: retired Sexual orientation: Straight/Heterosexual Gender identity: Female Cognitive needs: No Hearing needs: No Vision needs: Yes Female Reproductive History Menstrual Age of Menarche: 15 Date of Mammogram: 05/15/24 Review of Systems Const All systems reviewed & are unremarkable except as noted in HPI and below Card Reports as per HPI Resp Reports as per HPI GI Reports as per HPI and Reports no additional complaints Reports as per HPI Physical Exam Const General: cooperative, healthy appearing and comfortable Chest Chest palpation & inspection: normal inspection of the chest and normal palpation of entire chest wall Breast/axilla inspection: normal inspection of the breasts and normal inspection of the axillae Breast/axilla palpation: normal palpation of the breasts, normal palpation of the axillae and no axillary lymphadenopathy Resp Effort & Inspection: normal respiratory effort Auscultation: clear to auscultation bilaterally Percussion: percussion normal Cardio Palpation: normal PMI Rate: regular rate Rhythm: regular rhythm Heart sounds: no murmurs and no rubs Peripheral pulses: Peripheral pulses 2+ throughout GI Inspection: Yes normal to inspection Palpation (GI): Soft to palpation, nontender, no guarding, not rigid and No hepatosplenomegaly present Percussion: Yes normal to percussion Auscultation: normal bowel sounds Rectal Exam - Female: deferred General: Yes bladder normal to palpation External Female Exam: No lesion Speculum Exam - Vagina: normal appearance of the vagina, normal palpation, normal vaginal discharge and not erythematous Speculum Exam - Cervix: normal appearance of the cervix and normal palpation Bimanual exam- vagina & uterus: normal bimanual exam, normal palpation, uterine size normal, bladder normal to palpation, consistency normal and normal palpation Bimanual Exam- Adnexa, other: normal adnexae, no masses and no tenderness Assessment & Plan Assessment & Plan (1) Well woman exam: Code(s): Z01.419 - Encounter for gynecological examination (general) (routine) without abnormal findings Category: Medical Plan: Co testing not indicated since the patient 's age is above 65 with no history of abnormal Pap smears last 25 years, adequately screen for the last 10 years with no history of immunosuppression. Counseled the patient about the recommended dietary allowance of 1200 mg of Calcium & 800 IU of vitamin D. Instructions given the patient to schedule next screening Mammogram in 05/06. Will order DEXA scan . The patient was instructed to perform monthly self-breast exams and to schedule a 2 week DEXA scan follow-up appointment and an annual exam in a year; All questions answered and the patient verbalized understanding. Coding Level of Care Code Est Pt Prev Care >65y(38716) Diagnoses Well woman exam Z01.419
[2025-01-15 08:19] VITALS: BP 130/84; BMI 26.4
== END 2025-01-15 08:34 | disposition home or self-care (01) ==
LOC: HO.HWS 08:00
PROVIDERS: PCP Internal Medicine; Visit Provider Obstetrics & Gynecology
DX: Z01.419 Encounter for gynecological examination (general) (routine) without abnormal findings (principal)
CPT/HCPCS: 99397; 99459

== ENCOUNTER → 2025-01-15 08:00 | Outpatient (BNVA) | payer MEDICARE, SELFPAY | PROVIDERS: PCP Internal Medicine; Visit Provider Obstetrics & Gynecology | DX: Z01.419 Encounter for gynecological examination (general) (routine) without abnormal findings (principal) | CPT/HCPCS: 99397 ==

== ENCOUNTER 2025-03-27 08:00 | Outpatient (REF) | payer MEDICARE, SELFPAY ==
--- NOTE | ~2025-03-27 | MM_ITS ---
EXAMINATION: DXA BONE DENSITY AXIAL HISTORY: N95.1 - Menopausal and female climacteric states TECHNIQUE: T[employer] Dual energy absorptiometry (DEXA) of the lumbar spine, total left hip, and femoral neck was performed. COMPARISON: Comparison is made with the prior examination dated 03/22/2023. FINDINGS: The bone mineral density of the lumbar spine is 1.228 g/cm2, corresponding to a T-score of 0.4, and a Z-score of 1.8. This is indicative of normal bone mineral density. This represents a BMD change of 1.9% compared to the prior exam. This is not statistically significant. The bone mineral density of the left total hip is 0.911 g/cm2, corresponding to a T-score of -0.8, and a Z-score of 0.8. This is indicative of normal bone mineral density. This represents a BMD change of 0.2% compared to the prior exam. This is not statistically significant. The bone mineral density of the left femoral neck is 0.945 g/cm2, corresponding to a T-score of -0.7, and a Z-score of 1.1. This is indicative of normal bone mineral density. This represents a BMD change of -2.3% compared to the prior exam. MM/XR DEXA axial skeleton IMPRESSION: Based on bone mineral density, and according to World Health Organization (WHO) criteria, the diagnosis is consistent with normal bone mineral density. Statistically, 68% of repeat scans fall within 1 SD (+/- 0.010 g/cm2 for AP spine L1-L4) and 1 SD (+/- 0.012 g/cm2 for femur total) FRAX is a trademark of the [employer]'s [employer] Metabolic Bone Disease, a World Health Organization (WHO) Collaborating Center. Electronically signed by: David Grey MD 03/27/2025 08:40 AM EDT
--- OUTSIDE RECORDS SUMMARY | 2025-03-27 08:09 | XMS_ITS | Clinical Summary ---
Author Organization [facility] Address [address] [place] [address] Phone Care Team Providers Care Field Cashier Name Role Phone Raman Newman MD Primary Care Provider [phone] Surgical History Surgery Date Site/Laterality Comments BREAST [...] 05/16/2022 Social Influencers of Health Screening 05/16/2022 Depression Screening 06/13/2024 COVID-19 Vaccine ( season) 2025 04/30/2023, 10/07/2021, 03/19/2021, Additional history exists Influenza Vaccine (#1) 2025 , 02/17/2023, 04/06/2022, [...] topic Insurance [employer] MED[employer] ADVANTAGE Care Teams Field Cashier Relationship Specialty Start Date End Date Raman Newman MD [address] [place] [address] [address] [facility] [place] [address] PCP - General Internal Medicine 05/15/24
--- OUTSIDE RECORDS SUMMARY | 2025-03-27 08:09 | XMS_ITS | Patient Health Record ---
Author Organization [facility] Address [address] [place] [address] Care Team Providers Care Quality Assurance Qa Lab Technician Name Role Phone Po Raman SANDOVAL Primary Care Provider David España [phone] Allergies Allergen (clinical drug ingredient) Drug/Non Drug [...] Problem Status W/U Status Risk Notes Problem Screening for malignant neoplasm of colon (445926212) Encounter for screening for malignant neoplasm of colon (Z12.11) Active confirmed Problem History of adenomatous polyp of colon (443305382) History of adenomatous polyp of colon (Z86.010) Active confirmed Problem Screening for malignant neoplasm of rectum (764355071) Encounter for screening for malignant neoplasm of rectum (Z12.12) Active confirmed Problem Preprocedural examination (960131992362936) Preprocedural examination (Z01.818) Active confirmed Problem Long-term current use of antiplatelet drug (030116816534782) Long-term use of aspirin therapy (Z79.82) Active confirmed Problem History of adenomatous polyp of colon (886472589) Hx of adenomatous colonic polyps (Z86.010) Active confirmed Problem History of polyp of colon (situation) (994343719) History of colonic polyps (Z86.010) Active confirmed Problem Diverticulosis of colon (843123629) Diverticulosis of colon (K57.30) Active confirmed Plan Of Treatment Future Test Test Name Order Date COLONOSCOPY 06/26/2015 COLONOSCOPY 07/14/2021 COLONOSCOPY 08/30/2021 Insurance Providers Payer Name Payer Address Payer Phone Subscriber Number Group Number Insured Name Patient Relationship to Insured Coverage Start Date Coverage End Date [facility] [employer] PROFESSIONAL CLAIMS [address] [place] [address] [id number] RANJAN GAMEZTHIA Self - patient is the insured Medical (General) History Medical History History ICD Code Hypertension Hyperlipidemia Denies [place],DM,CVA,Lung disease,renal dise ase Left carotid artery < [...]
== END 2025-03-27 08:01 | disposition home or self-care (01) ==
LOC: HO.MAMMO 08:00
PROVIDERS: PCP Internal Medicine; Visit Provider Obstetrics & Gynecology
DX: Z13.820 Encounter for screening for osteoporosis (principal); Z78.0 Asymptomatic menopausal state
CPT/HCPCS: 77080

== ENCOUNTER → 2025-03-27 08:15 | Outpatient (BNV) | payer MEDICARE, SELFPAY | PROVIDERS: PCP Internal Medicine; Visit Provider Radiology Diagnostic Radiology | DX: E28.39 Other primary ovarian failure (principal) | CPT/HCPCS: 77080 ==

== ENCOUNTER 2025-04-23 06:50 | Outpatient (REF) | payer MEDICARE, SELFPAY ==
--- OUTSIDE RECORDS SUMMARY | 2025-04-23 06:53 | XMS_ITS | Patient Health Record ---
Author Organization [facility] Address [address] [place] [address] Care Team Providers Care Emergency Services Dispatcher Name Role Phone Po Raman SANDOVAL Primary Care Provider David España [phone] Allergies Allergen (clinical drug ingredient) Drug/Non Drug [...] Problem Screening for malignant neoplasm of colon (602247575) Encounter for screening for malignant neoplasm of colon (Z12.11) Active confirmed Problem History of adenomatous polyp of colon (380501193) History of adenomatous polyp of colon (Z86.010) Active confirmed Problem Screening for malignant neoplasm of rectum (783220408) Encounter for screening for malignant neoplasm of rectum (Z12.12) Active confirmed Problem Preprocedural examination (786506399160793) Preprocedural examination (Z01.818) Active confirmed Problem Long-term current use of antiplatelet drug (264078102941809) Long-term use of aspirin therapy (Z79.82) Active confirmed Problem History of adenomatous polyp of colon (313329268) Hx of adenomatous colonic polyps (Z86.010) Active confirmed Problem History of polyp of colon (situation) (928436059) History of colonic polyps (Z86.010) Active confirmed Problem Diverticulosis of colon (642298886) Diverticulosis of colon (K57.30) Active confirmed Plan Of Treatment Future Test Test Name Order Date COLONOSCOPY 06/26/2015 COLONOSCOPY 07/14/2021 COLONOSCOPY 08/30/2021 Insurance Providers Payer Name Payer Address Payer Phone Subscriber Number Group Number Insured Name Patient Relationship to Insured Coverage Start Date Coverage End Date [facility] [employer] PROFESSIONAL CLAIMS [address] [place] [address] [id number] RANJAN GAMEZTHIA Self - patient is the insured Medical (General) History Medical History History ICD Code Hypertension Hyperlipidemia Denies [place],DM,CVA,Lung disease,renal dise ase Left carotid artery < [...]
--- OUTSIDE RECORDS SUMMARY | 2025-04-23 06:53 | XMS_ITS | Clinical Summary ---
Author Organization [facility] Address [address] [place] [address] Phone Care Team Providers Care Business Initiatives Manager Name Role Phone Raman Newman MD Primary Care Provider [phone] Surgical History Surgery Date Site/Laterality Comments BREAST [...] 05/15/2024 7:30 AM EST Plan of Treatment Upcoming Encounters Date Type Department Care Team (Late st Contact Info) Description 05/21/2025 7:15 AM EST [facility]ointment [facility] [address] [place] [address] Health Maintenance Due Date Last Done Comments [...] complete this topic Insurance [employer] MEDICARE ADVANTAGE MEDICARE Care Teams Business Initiatives Manager Relationship Specialty Start Date End Date Raman Newman MD [address] [place] [address] [address] [facility] [place] [address] PCP - General Internal Medicine 05/15/24
[2025-04-23 07:46] LABS: Cholesterol 174 mg/dL (<200); HDL Cholesterol 47 mg/dL (>40); Triglycerides 120 mg/dL (<150)
== END 2025-04-23 06:51 | disposition home or self-care (01) ==
LOC: HO.LAB 06:50
DX: E78.00 Pure hypercholesterolemia, unspecified (principal)
CPT/HCPCS: 36415; 80061

== ENCOUNTER 2025-04-26 08:01 | Outpatient (AMB) | payer MEDICARE, SELFPAY ==
--- OUTSIDE RECORDS SUMMARY | 2025-04-26 08:04 | XMS_ITS | Patient Health Record ---
Author Organization [facility] Address [address] [place] [address] Care Team Providers Care Metal Drawer Name Role Phone Po Raman SANDOVAL Primary Care Provider David España [phone] Allergies Allergen (clinical drug ingredient) Drug/Non Drug [...] Problem Screening for malignant neoplasm of colon (695415481) Encounter for screening for malignant neoplasm of colon (Z12.11) Active confirmed Problem History of adenomatous polyp of colon (725678491) History of adenomatous polyp of colon (Z86.010) Active confirmed Problem Screening for malignant neoplasm of rectum (808897372) Encounter for screening for malignant neoplasm of rectum (Z12.12) Active confirmed Problem Preprocedural examination (652847305071966) Preprocedural examination (Z01.818) Active confirmed Problem Long-term current use of antiplatelet drug (120864243961945) Long-term use of aspirin therapy (Z79.82) Active confirmed Problem History of adenomatous polyp of colon (307788762) Hx of adenomatous colonic polyps (Z86.010) Active confirmed Problem History of polyp of colon (situation) (420317714) History of colonic polyps (Z86.010) Active confirmed Problem Diverticulosis of colon (182374149) Diverticulosis of colon (K57.30) Active confirmed Plan Of Treatment Future Test Test Name Order Date COLONOSCOPY 06/26/2015 COLONOSCOPY 07/14/2021 COLONOSCOPY 08/30/2021 Insurance Providers Payer Name Payer Address Payer Phone Subscriber Number Group Number Insured Name Patient Relationship to Insured Coverage Start Date Coverage End Date [facility] [place] [employer] PROFESSIONAL CLAIMS [address] [place] [address] [id number] RANJAN GAMEZTHIA Self - patient is [...]
--- OUTSIDE RECORDS SUMMARY | 2025-04-26 08:04 | XMS_ITS | Clinical Summary ---
Author Organization [facility] Address [address] [place] [address] Phone Care Team Providers Care Pompom Maker Name Role Phone Raman Newman MD Primary Care Provider [phone] Surgical History Surgery Date Site/Laterality Comments BREAST [...] AM EST Appointment [facility] [address] [place] [address] Health Maintenance Due Date Last [...] Insurance [employer] MEDICARE ADVANTAGE MEDICARE Care Teams Pompom Maker Relationship Specialty Start Date End Date Raman Newman MD [address] [place] [address] [address] [facility] [place] [address] PCP - General Internal Medicine 05/15/24
--- NOTE | 2025-04-26 08:07 | MHC.PC.OV ---
Vital Signs 04/26/25 08:08 04/26/25 08:33 Height 5 ft 8 in Weight 178 lb 2 oz BMI 27.1 BP 140/84 H 160/100 H Blood Pressure Location Lt brachial Lt brachial Position Sitting Sitting Pulse 82 Pulse Source Pulse Oximeter Temp 97.3 F Temp Source Temporal Artery Scan Pulse Oximetry (%) 98 Oxygen Delivery Method Room Air Intake Visit Reasons: 6 month follow up Intake Note: Patient is here to follow up on HTN, Hypercholesterolemia. Charter Boat Operator Required: No Wafer Line Worker: Not Required per policy Accompanied by: Self / Same As Patient Allergies amlodipine (Norvasc) Allergy (Intermediate, Verified 04/26/25 08:15) hives (to the binder) Sulfa (Sulfonamide Antibiotics) Allergy (Intermediate, Verified 04/26/25 08:15) swelling of mouth Medication List - Last Reconciled 04/26/25 by Laura Garcia PA-C aspirin 81 mg PO DAILY atorvastatin 10 mg PO DAILY calcium carbonate-vitamin D3 600 mg-12.5 mcg (500 unit) (Calcium with Vit D3) 1 cap PO BID cetirizine (Zyrtec) 10 mg PO DAILY PRN glucos sul [id number]-Mn 550-30-1 mg (Glucosamine Chondroitin) 1 cap PO DAILY lisinopril 30 mg PO DAILY multivitamin 1 tab PO DAILY Tobacco use date assessed: 04/26/25 Fall risk assessment: No Falls in past year Last assessed Fall Risk: 04/26/25 Dental Screening Dental Screen Date: 10/24/24 HPI 6 month follow up HPI Details 79-year-old female with a history of hypertension, hypercholesterolemia, history of nondisplaced fracture of the humerus, and impaired glucose tolerance last seen 10/2024 coming in for follow up. Presenting for a follow-up visit to review lab results and complete a MOLST form. Her blood pressure was elevated today, which she attributes to stress regarding her granddaughter's upcoming surgery. She has a home blood pressure cuff but has not been checking regularly; the last reading on the of this month was 129/68 mmHg and previously have been less than 140/90. The patient reports experiencing sinus headaches due to seasonal allergies. She has a history of receiving allergy shots and has previously used Zyrtec, which became ineffective over time, and recently switched to Claritin about two weeks ago. [facility] Medical History Dermatitis, unspecified Nondisplaced fracture of greater tuberosity of humerus Breast asymmetry Osteopenia COVID-19 virus infection Left carotid artery stenosis Arthritis COVID-19 vaccine series completed Breast cancer screening by mammogram Tubular adenoma of colon Osteopenia Tubular adenoma of colon Allergic rhinitis Hypercholesterolemia Hypertension Surgical History H/O colonoscopy History of cataract surgery History of bilateral tubal ligation Family History Mother Cancer Uterine cancer Social History Household Members: None Housing: House Are you a primary transitional care manager to a significant other at home: No Do you presently have visiting nurse or other home services: No Alcohol intake: former Comment: last one 2022 Patient Tobacco Use Status: Never used Tobacco e-Cigarette/Vaping Use: Never Used Second Hand Smoke Exposure: No service: No Current occupational status: retired Sexual orientation: Straight/Heterosexual Gender identity: Female Cognitive needs: No Hearing needs: No Vision needs: Yes Female Reproductive History Menstrual Age of Menarche: 15 Questionnaire Thrive Questionnaire Date Thrive assessed: 10/24/24 I am a: Patient What is your living situation today?: I have a steady place to live Within the past 12 months, did the food you bought not last and you didn't have the money to get more?: Never true Within the past 12 months, did you worry whether your food would run out before you got money to buy more?: Never true Do you have trouble paying for medicines?: No Do you have trouble getting transportation to medical appointments?: No Do you have trouble paying your heating and electricity bill?: No Do you have trouble taking care of your child, family member or friend?: No Do you have trouble with day-to-day activities such as bathing, preparing meals, shopping, managing finances, etc.?: No Are you currently unemployed and looking for a job?: No Are you interested in more education?: No Please select the resources that you would like help with: None Currently or been in a relationship where the following occur: I choose not to answer THRIVE Score: 0 AUDIT C Alcohol Use Questionnaire (AUDIT-C) 2. How many drinks containing alcohol do you have on a typical day when you are drinking?: 1 or 2 3. How often do you have six or more drinks on one occasion?: Never Total Score: 0 REG-7 AMB Questionnaire REG-7 Date REG - 7 assessed: 10/24/24 Source: Developed by Drs. David Chaudhari, Lindy Pulido, yBron Lomas and colleagues, with an educational sophia from [employer]. Review of Systems Const Denies body aches, Denies chills, Denies fever(s), Denies headache(s) and Denies poor appetite Eyes Reports no additional complaints ENT Denies dizziness and Denies headache(s) Card Denies chest pain, Denies syncope, Denies lightheadedness and Denies dyspnea Resp Denies dyspnea GI Denies abdominal pain, Denies nausea and Denies vomiting Reports no additional complaints Musc Reports no additional complaints and Denies abnormal gait Skin/Breast Reports system reviewed and no additional complaints, except as documented Neuro Denies abnormal gait, Denies dizziness, Denies syncope and Denies headache(s) Psych Reports no additional complaints Physical exam (Primary Care) Vital Signs: Last Vital Signs Temp 97.3 F 04/26/25 08:08 Pulse 82 04/26/25 08:08 BP 160/100 H 04/26/25 08:33 Pulse Ox 98 04/26/25 08:08 Oxygen Delivery Method Room Air 04/26/25 08:08 BMI result Body Mass Index 27.1 Tobacco/Smoking Status: Tobacco use Status Tobacco use date assessed 04/26/25 04/26/25 08:13 Patient Tobacco Use Status Never used Tobacco 04/26/25 08:13 e-Cigarette/Vaping Use Never Used 04/26/25 08:13 Thrive Assessment: Date of Thrive Assessment Date Thrive assessed 10/24/24 04/26/25 08:13 Currently or been in a relationship where the following occur: I choose not to answer Const General: cooperative, healthy appearing, comfortable and no acute distress Orientation/consciousness: patient oriented x3 HENMT Head: Yes normocephalic Ears: hearing grossly normal bilaterally General nose exam: Normal external nose present Eyes General: appearance normal, both eyes and all related structures Conjunctivae: conjunctivae normal Neck Neck: Yes full ROM and Yes no lymphadenopathy Resp Effort & Inspection: normal respiratory effort Auscultation: clear to auscultation bilaterally, no crackles, no rales, no rhonchi and no wheezes Cardio Rate: regular rate Rhythm: regular rhythm Skin General skin exam: no rashes or lesions noted Neuro General: patient oriented x3 Gait exam (Neuro): Normal gait present Extrem General: Yes normal to inspection, Yes full ROM and No edema Psych Affect: normal affect Attitude: cooperative Insight: Good insight present (Psych) Judgement: Good judgement present (Psych) Coding Level of Care Code Est Pt Level 3 (66091) Diagnoses Primary hypertension I10 Hypertension type: primary hypertension Hypercholesterolemia E78.00 Impaired glucose tolerance R73.02 Seasonal allergies J30.2 Assessment & Plan Assessment & Plan (1) Hypertension: Code(s): I10 - Essential (primary) hypertension Category: Medical Qualifiers: Hypertension type: primary hypertension Qualified Code(s): I10 - Essential (primary) hypertension Plan: The patient's blood pressure is significantly elevated in the office today at 160/100 mmHg, which may be exacerbated by stress. She will monitor her blood pressure daily at home for the next week. I will call her in one week to review the home readings, and if they remain high, we will increase her lisinopril. The patient is to bring her home blood pressure cuff to her next appointment in six weeks for calibration. Declined BP check with the nurses. (2) Hypercholesterolemia: Code(s): E78.00 - Pure hypercholesterolemia, unspecified Category: Medical Plan: Avoid foods that are high in cholesterol such as red meat, fried foods, eggs and baked goods. Triglyceride goal of less than 150 and LDL goal of less than 130. Continue on atorvastatin 10. Cholesterol mildly elevated on last blood work LDL 122 but has improved to 103 on most recent labs. (3) Impaired glucose tolerance: Code(s): R73.02 - Impaired glucose tolerance (oral) Category: Medical Plan: Decrease the amount of carbohydrates such as pasta, bread, rice, and potatoes and limit the amount of sweets. Although fruits are generally healthy they should be eaten in moderation as they are still high in sugar. (4) Seasonal allergies: Code(s): J30.2 - Other seasonal allergic rhinitis Category: Medical Plan: Advised to use ukpa-lga-tqjnaey nasal sprays like Nasacort or Flonase. She will continue with [id number] antihistamine as well. Plan This note was constructed using voice recognition software. While every effort has been made to ensure accuracy and food trades assistants, still areas may have been included sometimes these areas may affect the content or meeting of the given symptoms. Total time spent caring for the patient today was 20 minutes. This includes time spent before the visit reviewing the chart, time spent during the visit, and time spent after the visit and documentation. Patient was informed and verbally consented to the use of an ambient scribe for clinic note documentation during this visit.
[2025-04-26 08:08] VITALS: BP 140/84; PULSE 82; TEMP 36.3; O2SAT 98; BMI 27.1
[2025-04-26 08:33] VITALS: BP 160/100
== END 2025-04-26 08:41 | disposition home or self-care (01) ==
LOC: HO.HMCH 08:02
PROVIDERS: PCP Internal Medicine
DX: I10 Essential (primary) hypertension (principal); E78.00 Pure hypercholesterolemia, unspecified; R73.02 Impaired glucose tolerance (oral); J30.2 Other seasonal allergic rhinitis

== ENCOUNTER → 2025-04-26 08:01 | Outpatient (BNVA) | payer MEDICARE, SELFPAY | PROVIDERS: PCP Internal Medicine | DX: I10 Essential (primary) hypertension (principal); E78.00 Pure hypercholesterolemia, unspecified; R73.02 Impaired glucose tolerance (oral); J30.2 Other seasonal allergic rhinitis | CPT/HCPCS: 99212 ==

== ENCOUNTER 2025-06-12 08:44 | Outpatient (AMB) | payer MEDICARE, SELFPAY ==
--- NOTE | 2025-06-12 08:46 | A.OFFPC_ITS ---
Vital Signs 06/12/25 08:47 Height 5 ft 8 in Weight 178 lb BMI 27.1 BP 156/84 H Blood Pressure Location Lt brachial Position Sitting Respiration 18 Pulse 62 Pulse Source Pulse Oximeter Temp 97.4 F Temp Source Temporal Artery Scan Pulse Oximetry (%) 96 Oxygen Delivery Method Room Air Intake Visit Reasons: f/u HTN Grade Recorder Required: No Accompanied by: Self / Same As Patient Allergies amlodipine (Norvasc) Allergy (Intermediate, Verified 06/12/25 09:05) hives (to the binder) Sulfa (Sulfonamide Antibiotics) Allergy (Intermediate, Verified 06/12/25 09:05) swelling of mouth Medication List - Last Reconciled 06/12/25 by Laura Garcia PA-C acetaminophen (Tylenol Extra Strength) 500 mg PO Q6H PRN aspirin 81 mg PO DAILY atorvastatin 10 mg PO DAILY calcium carbonate-vitamin D3 600 mg-12.5 mcg (500 unit) (Calcium with Vit D3) 1 cap PO BID cetirizine (Zyrtec) 10 mg PO DAILY PRN glucos sul [id number]-Mn 550-30-1 mg (Glucosamine Chondroitin) 1 cap PO DAILY lisinopril 30 mg PO DAILY multivitamin 1 tab PO DAILY Tobacco use date assessed: 04/26/25 Last assessed Fall Risk: 06/12/25 Dental Screening Dental Screen Date: 10/24/24 HPI f/u HTN HPI Details 80-year-old female with a history of hyp ertension, hypercholesterolemia, history of nondisplaced fracture of the humerus, and impaired glucose tolerance last seen 04/2025 coming in for follow up. Presenting for management of hypertension. She has been monitoring her blood pressure daily at home and reports the readings are variable but consistently high, with systolic values including 140, 160, 142, and 138 mmHg, though she notes the diastolic numbers are not bad. BP cuff at home showed readings consistently over 140 systolic and never higher than 84 diastolic. She denies any symptoms of hypertension. [facility] Medical History Dermatitis, unspecified Nondisplaced fracture of greater tuberosity of humerus Breast asymmetry Osteopenia COVID-19 virus infection Left carotid artery stenosis Arthritis COVID-19 vaccine series completed Breast cancer screening by mammogram Tubular adenoma of colon Osteopenia Tubular adenoma of colon Allergic rhinitis Hypercholesterolemia Hypertension Surgical History H/O colonoscopy History of cataract surgery History of bilateral tubal ligation Family History Mother Cancer Uterine cancer Social History Household Members: None Housing: House Are you a primary care team coordinator scheduler to a significant other at home: No Do you presently have visiting nurse or other home services: No Alcohol intake: former Comment: last one 2022 Patient Tobacco Use Status: Never used Tobacco e-Cigarette/Vaping Use: Never Used Second Hand Smoke Exposure: No service: No Current occupational status: retired Sexual orientation: Straight/Heterosexual Gender identity: Female Cognitive needs: No Hearing needs: No Vision needs: Yes Female Reproductive History Menstrual Age of Menarche: 15 Questionnaire Thrive Questionnaire Date Thrive assessed: 10/24/24 I am a: Patient What is your living situation today?: I have a steady place to live Within the past 12 months, did the food you bought not last and you didn't have the money to get more?: Never true Within the past 12 months, did you worry whether your food would run out before you got money to buy more?: Never true Do you have trouble paying for medicines?: No Do you have trouble getting transportation to medical appointments?: No Do you have trouble paying your heating and electricity bill?: No Do you have trouble taking care of your child, family member or friend?: No Do you have trouble with day-to-day activities such as bathing, preparing meals, shopping, managing finances, etc.?: No Are you currently unemployed and looking for a job?: No Are you interested in more education?: No Currently or been in a relationship where the following occur: I choose not to answer THRIVE Score: 0 REG-7 AMB Questionnaire REG-7 Date REG - 7 assessed: 10/24/24 Source: Developed by Drs. David Chaudhari, Lindy Pulido, Byron Lomas and colleagues, with an educational sophia from [employer]. Review of Systems Const Denies body aches, Denies chills, Denies fever(s) and Denies headache(s) Eyes Reports no additional complaints ENT Denies dizziness and Denies headache(s) Card Denies chest pain, Denies edema, Denies lightheadedness and Denies dyspnea Resp Denies cough and Denies dyspnea GI Denies abdominal pain, Denies nausea and Denies vomiting Reports no additional complaints Musc Reports no additional complaints and Denies abnormal gait Skin/Breast Reports system reviewed and no additional complaints, except as documented Neuro Denies abnormal gait, Denies dizziness and Denies headache(s) Psych Reports no additional complaints Physical exam (Primary Care) Vital Signs: Last Vital Signs Temp 97.4 F 06/12/25 08:47 Pulse 62 06/12/25 08:47 Resp 18 06/12/25 08:47 BP 156/84 H 06/12/25 08:47 Pulse Ox 96 06/12/25 08:47 Oxygen Delivery Method Room Air 06/12/25 08:47 BMI result Body Mass Index 27.1 Tobacco/Smoking Status: Tobacco use Status Tobacco use date assessed 04/26/25 06/12/25 08:54 Patient Tobacco Use Status Never used Tobacco 06/12/25 08:54 e-Cigarette/Vaping Use Never Used 06/12/25 08:54 Thrive Assessment: Date of Thrive Assessment Date Thrive assessed 10/24/24 06/12/25 08:54 Currently or been in a relationship where the following occur: I choose not to answer Const General: cooperative, healthy appearing, comfortable and no acute distress Orientation/consciousness: patient oriented x3 HENMT Head: Yes normocephalic Ears: hearing grossly normal bilaterally General nose exam: Normal external nose present Eyes General: appearance normal, both eyes and all related structures Conjunctivae: conjunctivae normal Neck Neck: Yes full ROM and Yes no lymphadenopathy Resp Effort & Inspection: normal respiratory effort Auscultation: clear to auscultation bilaterally, no crackles, no rales, no rhonchi and no wheezes Cardio Rate: regular rate Rhythm: regular rhythm Skin General skin exam: no rashes or lesions noted Neuro General: patient oriented x3 Gait exam (Neuro): Normal gait present Extrem General: Yes normal to inspection, Yes full ROM and No edema Psych Affect: normal affect Attitude: cooperative Insight: Good insight present (Psych) Judgement: Good judgement present (Psych) Coding Level of Care Code Est Pt Level 3 (53051) Diagnoses Primary hypertension I10 Hypertension type: primary hypertension Hypercholesterolemia E78.00 Impaired glucose tolerance R73.02 Assessment & Plan Assessment & Plan (1) Hypertension: Code(s): I10 - Essential (primary) hypertension Category: Medical Qualifiers: Hypertension type: primary hypertension Qualified Code(s): I10 - Essential (primary) hypertension Plan: The patient's home blood pressure readings and in-office measurement of 168/88 mmHg indicate uncontrolled hypertension. Her home blood pressure cuff was deemed to be accurate. The plan is to increase lisinopril to 40 mg, with the prescription sent to [facility]. It was explained that the medication will take 2-4 weeks to reach full efficacy. If blood pressure remains uncontrolled, the next step will be to add a second medication. She is advised to continue monitoring her blood pressure at home and to follow up in two months to assess her response to the new dosage. (2) Hypercholesterolemia: Code(s): E78.00 - Pure hypercholesterolemia, unspecified Category: Medical Plan: Avoid foods that are high in cholesterol such as red meat, fried foods, eggs and baked goods. Triglyceride goal of less than 150 and LDL goal of less than 130. Continue on atorvastatin 10. Cholesterol mildly elevated on last blood work LDL 122 but has improved to 103 on most recent labs. (3) Impaired glucose tolerance: Code(s): R73.02 - Impaired glucose tolerance (oral) Category: Medical Plan: Decrease the amount of carbohydrates such as pasta, bread, rice, and potatoes and limit the amount of sweets. Although fruits are generally healthy they shoul d be eaten in moderation as they are still high in sugar. Plan This note was constructed using voice recognition software. While every effort has been made to ensure accuracy and dish washer, still areas may have been included sometimes these areas may affect the content or meeting of the given symptoms. Total time spent caring for the patient today was 20 minutes. This includes time spent before the visit reviewing the chart, time spent during the visit, and time spent after the visit and documentation. Patient was informed and verbally consented to the use of an ambient scribe for clinic note documentation during this visit. Medications: New lisinopril 40 mg PO DAILY 90 tabs 0RF lisinopril 40 mg PO DAILY 90 tabs 0RF Discontinued lisinopril Discontinued Reason: Patient no longer taking 30 mg PO DAILY 90 tabs 3RF I10 - Essential (primary) hypertension
[2025-06-12 08:47] VITALS: BP 156/84; PULSE 62; RESP 18; TEMP 36.3; O2SAT 96; BMI 27.1
--- OUTSIDE RECORDS SUMMARY | 2025-06-12 08:49 | XMS_ITS | Clinical Summary ---
Author Organization [facility] Address [address] [place] [address] Phone Care Team Providers Care Chef Broiler Or Fry Name Role Phone Raman Newman MD Primary Care Provider [phone] Encounters Date Type Department Care Team Description 05/21/2025 7:00 AM EST - 05/21/2025 11:59 PM EST Hospital [facility] [address] [address] Encounter for screening mammogram for breast cancer [...] 2025 04/30/2023, 10/07/2021, 03/19/2021, Additional history exists DTaP,Tdap,and Td Vaccines (2 - Td or Tdap) 06/02/2032 06/02/2022 Pneumococcal Vaccine: 50+ Years Completed 03/06/2019, 02/16/2017 Zoster Vaccines Completed 09/26/2019, 07/13/2019 Influenza Vaccine Completed 03/15/2025, , 02/17/2023, Additional history exists HIB Vaccines Aged Out [...] Procedure Name Priority Date/Time Associated Diagnosis Comments MG MAMMO DIGITAL SCREENING W DINO BILAT Routine 05/21/2025 7:16 AM EST Encounter for screening mammogram for breast cancer from Last 3 Months Results * MG Mammo Digital Screening w Dino bilat (05/21/2025 7:16 AM EST) Anatomical Region Laterality Modality Breast Bilateral Mammography 05/21/2025 8:50 AM EST Impressions 05/21/2025 11:59 AM EST No evidence of breast malignancy. BI-RADS CATEGORY: 1 - NEGATIVE RECOMMENDATION: Screening bilateral mammogram is recommended in 1 year. Mammo Location: [facility], [address] [place] [address], [id number], . -------- FINAL REPORT -------- Dictated By: Rafaela South Dictated Date: 05/21/2025 08:50 ET Assigned Physician: Rafaela South Reviewed and Electronically Signed By: Rafaela South Signed Date: 05/21/2025 11:59 ET Workstation ID: [id number] Transcribed By: Self Edit Transcribed Date: 05/21/2025 08:51 ET Narrative 05/21/2025 11:59 AM EST CLINICAL: 80 years old, Female, routine annual exam. COMPARISON: Multiple prior studies dating back to 2018 TECHNIQUE: Bilateral MLO and CC views were obtained digitally with 3-D mammogram (digital breast tomosynthesis). Computer-aided detection was utilized in evaluation of this exam (CAD). FINDINGS: There is no evidence of suspicious mass or architectural distortion. No worrisome calcifications are evident. There has been no significant change from prior exam(s). BREAST DENSITY: B - There are scattered areas of fibroglandular density. Procedure Note Rafaela South MD - 05/21/2025 CLINICAL: 80 years old, Female, routine annual exam. COMPARISON: Multiple prior studies dating back to 2018 TECHNIQUE: Bilateral MLO and CC views were obtained digitally with 3-Dmammogram (digital breast tomosynthesis). Computer-aided detection wasutilized in evaluation of this exam (CAD). FINDINGS: There is no evidence of suspicious mass or architectural distortion. Noworrisome calcifications are evident. There has been no significantchange from prior exam(s). BREAST DENSITY: B - There are scattered areas of fibroglandular density. IMPRESSION: No evidence of breast malignancy. BI-RADS CATEGORY: 1 - NEGATIVE RECOMMENDATION: Screening bilateral mammogram is recommended in 1 year. Mammo Location: [facility], [address] [place] [address], [id number], . -------- FINAL REPORT -------- Dictated By: Rafaela South Dictated Date: 05/21/2025 08:50 ET Assigned Physician: Rafaela South Reviewed and Electronically Signed By: Rafaela South Signed Date: 05/21/2025 11:59 ET Workstation ID: [id number] Transcribed By: Self Edit Transcribed Date: 05/21/2025 08:51 ET us Self Referral Sppl IMG BI PROCEDURES Final Resul t from Last 3 Months Insurance [employer] MEDICARE ADVANTAGE MEDICARE Care Teams Chef Broiler Or Fry Relationship Specialty Start Date End Date Raman Newman MD [address] [place] [address] [address] [facility] MARYLU Brian [id number] PCP - General Internal Medicine 05/15/24
--- OUTSIDE RECORDS SUMMARY | 2025-06-12 08:49 | XMS_ITS | Patient Health Record ---
Author Organization [facility] Address [address] [place] [address] Care Team Providers Care Jewellery Designer Name Role Phone Po Raman SANDOVAL Primary Care Provider David España [phone] Allergies Allergen (clinical drug ingredient) Drug/Non Drug [...] Status Comme nts Influenza Unknown 02/11/2021 Administered Social History Social History Additional Details Category Social Info Options Details Miscellaneous: Marital status: 2020 Occupation: retired Section Notes: Nonsmoker; no sig. alcohol Nonsmoker; no sig. alcohol Nonsmoker; no sig. alcohol Problems Problem Type SNOMED Code ICD Code Onset Dates Problem Status W/U Status Risk Notes Problem Screening for malignant neoplasm of colon (136916350) Encounter for screening for malignant neoplasm of colon (Z12.11) Active confirmed Problem History of adenomatous polyp of colon (434500579) History of adenomatous polyp of colon (Z86.010) Active confirmed Problem Screening for malignant neoplasm of rectum (775733916) Encounter for screening for malignant neoplasm of rectum (Z12.12) Active confirmed Problem Preprocedural examination (090264647728507) Preprocedural examination (Z01.818) Active confirmed Problem Long-term current use of antiplatelet drug (545226619635103) Long-term use of aspirin therapy (Z79.82) Active confirmed Problem History of adenomatous polyp of colon (527235489) Hx of adenomatous colonic polyps (Z86.010) Active confirmed Problem History of polyp of colon (situation) (630023701) History of colonic polyps (Z86.010) Active confirmed Problem Diverticulosis of colon (162498431) Diverticulosis of colon (K57.30) Active confirmed Plan Of Treatment Future Test Test Name Order Date COLONOSCOPY 06/26/2015 COLONOSCOPY 07/14/2021 COLONOSCOPY 08/30/2021 Insurance Providers Payer Name Payer Address Payer Phone Subscriber Number Group Number Insured Name Patient Relationship to Insured Coverage Start Date Coverage End Date [facility] [employer] [address] [place] [address] [id number] DONN GAMEZ Self - patient is the insured Medical (General) History Medical History History ICD Code Hypertension Hyperlipidemia Denies NE,DM,CVA,Lung disease,renal dise ase Left carotid artery < [...]
== END 2025-06-12 09:28 | disposition home or self-care (01) ==
LOC: HO.HMCH 08:45
PROVIDERS: PCP Internal Medicine
DX: I10 Essential (primary) hypertension (principal); E78.00 Pure hypercholesterolemia, unspecified; R73.02 Impaired glucose tolerance (oral)

== ENCOUNTER → 2025-06-12 08:44 | Outpatient (BNVA) | payer MEDICARE, SELFPAY | PROVIDERS: PCP Internal Medicine | DX: I10 Essential (primary) hypertension (principal); E78.00 Pure hypercholesterolemia, unspecified; R73.02 Impaired glucose tolerance (oral) | CPT/HCPCS: 99212 ==